=== PATIENT | female | born 1995 | race Caucasian/White ===

== ENCOUNTER 2019-05-20 15:44 | Outpatient (RCR) | payer OTHER, SELFPAY | END 2019-08-16 23:59 | disposition home or self-care (01) | LOC: ANHLAB 15:44 | PROVIDERS: Visit Provider Advanced Practice Midwife | DX: Z36.89 Encounter for other specified antenatal screening (principal) | CPT/HCPCS: 36415; 84702 ==

== ENCOUNTER 2019-08-03 14:35 | Emergency (ER) | payer OTHER, SELFPAY ==
[2019-08-03 15:00] VITALS: BP 119/72; PULSE 98; RESP 18; TEMP 36.7; O2SAT 99
--- NOTE | 2019-08-03 15:29 | ED.URI ---
HPI - URI/Sore Throat General Chief Complaint: Upper Respiratory Infection Stated Complaint: head ache cough and ache Time Seen by Provider: 08/03/19 15:29 Source: patient and RN notes reviewed History of Present Illness HPI Narrative: Patient is a 23-year-old female presents the urgent care with complaints of headache, cough, body aches, fever. Patient states that it started yesterday and she used 1 dose of Benadryl without any relief. Patient states that she did call her DATA PROCESSING CONTROL CLERK who prescribed her more Zofran for her nausea and told her to follow-up with them if she is positive for influenza B at our facility. Patient states that she will get the Tamiflu prescription from them if her DATA PROCESSING CONTROL CLERK deems necessary. Patient is currently 16 weeks . No other acute complaints. No acute distress noted. Patient had a plan of care. Related Data Home Medications Medication Instructions Recorded Confirmed ondansetron HCl [Zofran] 4 mg PO Q6H PRN 08/03/19 08/03/19 Allergies Allergy/AdvReac Type Severity Reaction Status Date / Time hydrocodone AdvReac Mild NAUSEA Verified 08/03/19 15:14 Review of Systems Review of Systems: Narrative: CONSTITUTIONAL: Reports a fever, chills EYES: Denies visual changes, redness, or discharge. ENT: Denies rhinorrhea, congestion, sore throat, or otalgia. CARDIOVASCULAR: Denies chest pain, palpitations, or edema. RESPIRATORY: Reports of nonproductive cough without dyspnea GASTROINTESTINAL: Denies abdominal pain, nausea, vomiting, or diarrhea. GENITOURINARY: Denies dysuria or hematuria. SKIN: Denies rash or itching. MUSCULOSKELETAL: Denies back pain, joint pain; reports of body aches NEUROLOGIC: Reports of headache All other systems reviewed are negative, except as documented in HPI. PMFSH Comments At the time of my signature, I reviewed and agree with the nursing past medical, surgical, social, and family history. There is no relevant family history pertinent to the patient complaint. Exam Narrative: Exam Narrative: GENERAL: This is a well-nourished, well-developed patient, appears slightly fatigued HEAD: normocephalic, atraumatic. EYES: PERRL. Sclera clear/white. Vision is grossly intact. EARS: External ears normal, auditory canals clear and without drainage, TMs normal without perforation. Hearing grossly intact. NOSE: External nose normal with no obvious nasal discharge, nares without redness, clear rhinorrhea. THROAT: Mucous membranes moist, posterior pharynx clear. Mild postnasal drainage NECK: Neck supple CARDIOVASCULAR: Regular rate and rhythm without murmurs, gallops, or rubs. RESPIRATORY: Clear to auscultation. Breath sounds equal bilaterally. No wheezes, rales, or rhonchi. SKIN: warm, intact with no suspicious lesions or rash, good texture and turgor. NEURO: awake, alert, and oriented to person, place and time. There were no obvious focal neurologic abnormalities. EXTREMITIES: No clubbing, cyanosis, or edema. Course Vital Signs Vital signs: Vital Signs Temperature 98.1 F 08/03/19 15:00 Pulse Rate 98 08/03/19 15:00 Respiratory Rate 18 08/03/19 15:00 Blood Pressure 119/72 08/03/19 15:00 Pulse Oximetry 99 08/03/19 15:00 Temperature 98.1 F 08/03/19 15:00 Pulse Rate 98 08/03/19 15:00 Respiratory Rate 18 08/03/19 15:00 Blood Pressure 119/72 08/03/19 15:00 Pulse Oximetry 99 08/03/19 15:00 Reviewed MDM - URI/Sore Throat MDM Narrative Medical decision making narrative: Reviewed lab results with the patient. She is aware that she is positive for influenza B. Advised patient to follow-up with her DATA PROCESSING CONTROL CLERK as directed prior to appointment today at the urgent care. Patient states that her REGISTRY NURSE will treat her with Tamiflu if she deems necessary. Advised patient that she may use [id number] Zyrtec and Flonase which are safe in but she can also discuss those medications with her DATA PROCESSING CONTROL CLERK. Make sure to increase water intake. Use humidifier at ni
== END 2019-08-03 15:45 | disposition home or self-care (01) ==
PROVIDERS: Emergency Provider Nurse Practitioner Family
DX: J10.1 Influenza due to other identified influenza virus with other respiratory manifestations (principal); J45.990 Exercise induced bronchospasm
CPT/HCPCS: 87081; 87804; 87880; 99213; G0463

== ENCOUNTER 2019-08-07 18:26 | Emergency (ER) | payer OTHER, SELFPAY ==
[2019-08-07 18:26] VITALS: BP 113/85; PULSE 73; RESP 20; TEMP 36.8; O2SAT 100
--- NOTE | 2019-08-07 18:28 | ED.SYNCOPE ---
HPI - Syncope General Chief Complaint: Syncope Stated Complaint: syncope Time Seen by Provider: 08/07/19 18:27 Source: patient Mode of arrival: EMS Limitations: no limitations History of Present Illness HPI narrative: The pt is a 24 y/o female who presents to the ED, via EMS, with c/o a syncopal episode that occurred just prior to arrival. The pt states that she was at the gas station and began to feel lightheaded so she sat on the counter. The next thing she remembers is waking up on the floor with a leading firefighter looking over her. The pt states that she is 16 weeks and has the flu. She reports a cough and sinus congestion, but denies fever, SOB, ABD pain, vaginal bleeding, CP, BLE swelling, or vaginal discharge. The pt states that she has been able to eat and drink normally but did not eat much today. complaint: other (syncopal episode) Onset (ago): minute(s) (just prior to arrival) Witnessed: Yes - by Bystander Current symptoms: other (cough, sinus congestion) Related Data Home Medications Medication Instructions Recorded Confirmed ondansetron HCl [Zofran] 4 mg PO Q6H PRN 08/03/19 08/03/19 Allergies Allergy/AdvReac Type Severity Reaction Status Date / Time hydrocodone AdvReac Mild NAUSEA Verified 08/07/19 18:30 Review of Systems Review of Systems: All systems reviewed & are unremarkable except as noted in HPI and below Constitutional: Constitutional: Denies fever(s) ENT: Reports other (sinus congestion) Cardiovascular: Cardiovascular: Denies chest pain and Denies leg edema (BLE) Respiratory: Respiratory: Reports cough and Denies dyspnea Gastrointestinal: Gastrointestinal: Denies abdominal pain Genitourinary: Genitourinary: Denies abnormal vaginal bleeding and Denies vaginal discharge Neurologic: Reports syncope PMFSH Past Medical History Medical History (Updated 08/07/19 @ 19:41 by Francois Gordon MD) Asthma Depression Migraine Surgical History Surgical History (Updated 08/07/19 @ 18:37 by Shana Warren) H/O inguinal hernia repair [place] teeth extracted Social History Social History (Updated 08/07/19 @ 18:37 by Shana Warren) Smoking status: Never smoker Exam Const: General: healthy appearing and no acute distress Nutritional Appearance: well nourished HENMT: Mouth: Yes lip normal and Yes moist mucous membranes Eyes: Conjunctivae: conjunctivae normal Pupils: Equal, round and reactive pupils present Resp: Effort & Inspection: normal respiratory effort Auscultation: clear to auscultation bilaterally Cardio: Rate: regular rate Rhythm: regular rhythm Heart sounds: no murmurs GI: GI Palp: No abdominal tenderness and Yes Soft to palpation Auscultation: normal bowel sounds Back/Spine/Pelvis: Back: other (full ROM) Skin: General skin exam: normal color, dry skin and other (warm) Neuro: General: patient oriented x3 Speech: normal speech Extrem: General: full ROM Psych: Mental Status: mental status grossly normal Affect: normal affect Course Vital Signs Vital signs: Vital Signs Temperature 36.8 C 08/07/19 18:26 Pulse Rate 73 08/07/19 18:26 Respiratory Rate 20 08/07/19 18:26 Blood Pressure 113/85 08/07/19 18:26 Pulse Oximetry 100 08/07/19 18:26 Temperature 36.8 C 08/07/19 18:26 Pulse Rate 89 08/07/19 19:18 Respiratory Rate 20 08/07/19 18:26 Blood Pressure 107/81 08/07/19 19:18 Pulse Oximetry 100 08/07/19 18:26 MDM - Syncope Lab Data Result diagrams: 08/07/19 18:45 08/07/19 18:45 Labs: Lab Results 08/07/19 08/07/19 Range/Units 18:45 18:45 WBC 4.7 (4.5-10.0) K/mm3 RBC 3.95 L (4.2-5.4) M/mm3 Hgb 12.5 (12.0-15.0) g/dL Hct 36.1 L (37.0-47.0) % MCV 91.4 (80-100) fl MCH 31.6 (26-34) pg MCHC 34.6 (32-36) g/dl RDW 12.8 (11.5-14.5) % Plt Count 157 (150-375) k/mm3 MPV 10.5 H (7.4-10.4) fl Immature Gran % (Auto) 0.2 (0-0.
--- NOTE | 2019-08-07 18:30 | ECG_ITS ---
Measurements Intervals [place] Rate: 73 P: 11 NE: 136 QRS: 74 QRSD: 98 T: 25 QT: 403 QTc: 445 Interpretive Statements SINUS RHYTHM BORDERLINE ST-T WAVE ABNORMALITY- ANT/INF LEADS BASELINE ARTIFACT- I, II, III, AVR, AVL, AVF, V3-V5 BORDERLINE ECG Electronically Signed On 08-11-2019 15:18:57 SOLUTION ENGINEER by Jann Granados D.O.
[2019-08-07] MEDS: SODIUM CHLORIDE 0.9% IV 1,000 ML 999 ML IV CONT (18:45)
[2019-08-07 18:52] LABS: Basophils Percent Auto 0.4 % (0.2-1.2); Eosinophils Absolute Auto 0.1 K/mm3 (0-0.3); Eosinophils Percent Auto 1.5 % (0-4.4); Hematocrit 36.1 % (37.0-47.0); Hemoglobin 12.5 g/dL (12.0-15.0); Immature Granulocyte Absolute 0.01 K/mm3 (0.00-0.031); Immature Granulocyte Percent A 0.2 % (0-0.5); Lymphocytes Absolute Auto 1.75 K/mm3 (0.9-3.2); Lymphocytes Percent Auto 37.1 % (18.3-44.2); Mean Corpuscular HGB Conc 34.6 g/dl (32-36); Mean Corpuscular Hemoglobin 31.6 pg (26-34); Mean Corpuscular Volume 91.4 fl (80-100); Mean Platelet Volume 10.5 fl (7.4-10.4); Monocytes Absolute Auto 0.4 K/mm3 (0.1-0.6); Monocytes Percent Auto 8.9 % (2.6-8.5); Neutrophils Absolute Auto 2.5 K/mm3 (1.3-6.7); Neutrophils Percent Auto 51.9 % (45.5-73.1); Platelet Count Result 157 k/mm3 (150-375); Red Blood Count 3.95 M/mm3 (4.2-5.4); Red Cell Distribution Width 12.8 % (11.5-14.5); White Blood Count 4.7 K/mm3 (4.5-10.0)
[2019-08-07 19:03] LABS: Blood Urea Nitrogen 10 mg/dL (7-17); Calcium 8.5 mg/dL (8.4-10.2); Carbon Dioxide 25 mmol/L (22-30); Chloride 98 mmol/L (98-107); Estimated CRCL calculation 116 ml/min; Estimated Glomerular Filt Rate > 60; Glucose 83 mg/dL (65-105); Potassium 3.9 mmol/L (3.4-5.0); Sodium 134 mmol/L (137-145)
[2019-08-07 19:18] VITALS: BP 103/76; BP 107/72; BP 107/81; PULSE 79; PULSE 89
[2019-08-07 19:50] VITALS: BP 110/77; PULSE 80; RESP 20; TEMP 37.1; O2SAT 99
--- NOTE | 2019-09-26 10:54 | PC.NURSE ---
LATE ENTRY This note is being entered to document information to the patient's record. The following information was omitted on [08/07/2019], by YOUSUF Jean Baptiste. Ptrecieved 1 L NS and infusion completed 1 hr after initiation
== END 2019-08-07 19:51 | disposition home or self-care (01) ==
PROVIDERS: Emergency Provider Emergency Medicine
DX: R55 Syncope and collapse (principal); J45.909 Unspecified asthma, uncomplicated
CPT/HCPCS: 36415; 80048; 85025; 93005; 96360; 99283; J7030

== ENCOUNTER 2019-10-04 08:51 | Observation (INO) | payer OTHER, SELFPAY ==
[2019-10-04] VITALS (66 sets, daily range): BP systolic 116–144; BP diastolic 63–100; PULSE 57–81; TEMP 36.3–36.9; O2SAT 97–100; BMI 24.6
[2019-10-04] MEDS: DEXTROSE 5%/LACTATED RINGERS 1,000 ML 125 ML IV CONT (09:28)
[2019-10-04] MEDS: METOCLOPRAMIDE HCL INJ 10 MG/2 ML VIAL IV PUSH (09:28)
[2019-10-04 09:44] LABS: Glucose Point of Care 139 (65-105)
[2019-10-04 09:59] LABS: Hematocrit 34.5 % (37.0-47.0); Hemoglobin 11.9 g/dL (12.0-15.0); Mean Corpuscular HGB Conc 34.5 g/dl (32-36); Mean Corpuscular Hemoglobin 31.9 pg (26-34); Mean Corpuscular Volume 92.5 fl (80-100); Mean Platelet Volume 10.4 fl (7.4-10.4); Platelet Count Result 198 k/mm3 (150-375); Red Blood Count 3.73 M/mm3 (4.2-5.4); Red Cell Distribution Width 13.2 % (11.5-14.5); White Blood Count 11.2 K/mm3 (4.5-10.0)
[2019-10-04 10:12] LABS: Potassium 3.3 mmol/L (3.4-5.0)
--- NOTE | 2019-10-04 10:19 | PC.NURSE ---
0928- Reglan 10 mg started to be given IV push, 2.5 mg or 1/2 ml administered when patient eyes started rolling back in her head and tremoring. Reglan discontinued at this time. Staff assistance called to room. Patient breathing with an O2 sat of 100%, responding to commands. 0930- SVE performed by Bailey Mckeon RN, cervix closed. Patient still breathing, O2 applied at 10L/mask. Vitals all normal. Dr. Theodore called to come in to see patint. 1035- Patient still tremoring and eyes fluttering intermittently, patient responds to sternal rub. Dr. Theodore at bedside. Orders received for 25 mg IV benadryl. 0938- Patient given 25 mg IV benadryl. 0940- patient alert and talking, decreasing eye fluttering and tremors. Dr. Theodore discussing plan of care with patient.
[2019-10-04 10:21] LABS: Albumin Level 3.6 g/dL (3.5-5.1)
[2019-10-04 10:22] LABS: Alanine Aminotransferase 16 U/L (4-35); Alkaline Phosphatase 82 U/L (38-126); Aspartate Amino Transferase 22 U/L (14-36); Bilirubin,Total 0.5 mg/dL (0.2-1.3); Blood Urea Nitrogen 8 mg/dL (7-17); Calcium 8.2 mg/dL (8.4-10.2); Carbon Dioxide 22 mmol/L (22-30); Chloride 104 mmol/L (98-107); Estimated Glomerular Filt Rate > 60; Glucose 178 mg/dL (65-105); Sodium 136 mmol/L (137-145)
--- NOTE | 2019-10-04 10:26 | OBADM ---
This patient, Bridget Hendrix, admitted to the OB room OB Post 116 for observation. Patient/family oriented to hospital policies and general routines including ID bracelet, bed and alarms, visiting hours, pain management, procedures, bathroom and other care routines, personal items, smoking policy, room service/diet, and visiting hours. Patient/Family are encouraged to report perceived risks to care and to ask questions if they do not understand what they are told or what they should do.
[2019-10-04 10:29] LABS: Bilirubin Urine 1+ (Negative); Blood Urine Negative (Negative); Color Urine Yellow (Yellow); Glucose Urine UA Trace mg/dL (Negative); Ketones Urine 4+ mg/dL (Negative); Leukocyte Esterase Ur Negative LEU/UL (NEGATIVE); Nitrate Urine Negative (Negative); Protein Urine 1+ mg/dL (Negative); Specific Grav Ur >= 1.030 (1.001-1.035)
[2019-10-04 10:31] LABS: Add Urine Microscopic? YES
[2019-10-04 10:34] LABS: Bacteria Urine Trace /hpf; Squamous Epithelial Cell Urine Few /hpf (Few)
[2019-10-04 10:35] LABS: Appearance Urine Clear (Clear)
[2019-10-04 10:41] LABS: Barbiturate Screen Urine Negative (Negative); Benzodiazepines Screen Urine Negative (Negative)
[2019-10-04 10:49] LABS: Amphetamine Screen Urine Negative (Negative); Cannabinoid Screen Urine Positive (Negative); Cocaine Screen Urine Negative (Negative); Methadone Screen Urine Negative (Negative); Opiate Screen Urine Negative (Negative); Phencyclidine Screen Urine Negative (Negative)
--- NOTE | 2019-10-04 12:05 | PC.NURSE ---
0984- Spoke with Dr. Theodore. Orders received for patient to be NPO and pepcid 20 mg iv. Orders to alternate D5LR with D5NS and Potassium.
[2019-10-04] MEDS: FAMOTIDINE 20 MG/2 ML VIAL IV PUSH (12:15)
[2019-10-04] MEDS: KCL 20 MEQ/D5/0.45% SOD CHL 1,000 ML 125 ML IV CONT (13:28)
[2019-10-04] MEDS: PROMETHAZINE HCL 25 MG SUPP.RECT RECTAL ×2 (13:50→17:32)
--- NOTE | 2019-10-04 16:41 | PC.NURSE ---
1640- Spoke with Dr. Theodore, patient feeling better after Phenergan suppository. Patient may be discharged to home with prescriptions for Phenergan suppositories-25 mg rectally q 4 hr PRN, and Zofran ODT tablets -4mg q6 hours PRN.
[2019-10-04] MEDS: ONDANSETRON HCL ODT 4 MG TABLET PO (16:50)
--- NOTE | 2019-10-19 22:13 | PM.IMHP ---
H&P: HPI History of Present Illness Chief complaint: Abdominal pain Narrative: Bridget Hendrix is a 24 year old female 2 para 1001 at 24 weeks gestation who presented for abdominal pain. She denies loss of fluid, vaginal bleeding, contractions. She denies any headache, blurry vision, epigastric pain. She reports good movement. Her pain is lower abdominal sharp pain, it is intermittent with movement. Review of Systems Constitutional: Constitutional: Reports no additional constitutional complaints, Denies fatigue, Denies headache(s), Denies lethargy and Denies weakness Eyes: Eyes: Reports no additional eye complaints, Denies blurry vision and Denies photophobia ENT: Reports as per HPI, Denies headache(s) and Denies neck pain Cardiovascular: Cardiovascular: Denies chest pain, Denies diaphoresis, Denies leg edema, Denies palpitations and Denies dyspnea Respiratory: Respiratory: Denies hemoptysis, Denies dyspnea and Denies wheezing Gastrointestinal: Gastrointestinal: Denies abdominal pain, Denies melena, Denies bloating, Denies hematochezia, Denies nausea and Denies vomiting Genitourinary: Genitourinary: Reports no additional female genitourinary complaints Musculoskeletal: Musculoskeletal: Denies joint swelling, Denies neck pain, Denies numbness and Denies stiffness Neurologic: Denies Abnormal speech present, Denies confusion, Denies headache(s), Denies numbness and Denies weakness Psychiatric: Psychiatric: Denies anxiety, Denies confusion, Denies depression, Denies homicidal ideation and Denies suicidal ideation Endocrine: Endocrine: Denies fatigue and Denies palpitations Allergic/Immunologic: Allergic/Immunologic: Denies wheezing PMF Past Medical History Medical History (Updated 10/19/19 @ 22:16 by Watson Theodore MD) Asthma Depression Migraine Surgical History Surgical History (Updated 08/07/19 @ 18:37 by Shana Warren) H/O inguinal hernia repair [place] teeth extracted Social History Social History (Updated 08/07/19 @ 18:37 by Shana Warren) Smoking status: Never smoker Meds Home Medications and Allergies Home Medications Medication Instructions Recorded Confirmed Type ondansetron HCl [Zofran] 4 mg PO Q6H PRN #30 tablet 10/14/19 Rx promethazine 25 mg [place] Q4H PRN #30 ea 10/14/19 Rx Allergies Allergy/AdvReac Type Severity Reaction Status Date / Time metoclopramide [From Reglan] Allergy Muscle Verified 10/04/19 11:08 Spasms hydrocodone AdvReac Mild NAUSEA Verified 08/07/19 18:30 Exam Const: General: healthy appearing, comfortable and no acute distress; No confusion Orientation/consciousness: No confusion Eyes: Direct Ophthalmoscopy: No photophobia Resp: Auscultation: clear to auscultation bilaterally, no rales, no rhonchi and no wheezes Cardio: Rate: regular rate Heart sounds: no click, no murmurs and no rubs GI: Inspection: non-distended GI Palp: No abdominal tenderness Auscultation: normal bowel sounds Neuro: General: No confusion Speech: No Abnormal speech present Extrem: General: normal to inspection, no pedal edema and no calf tenderness Assessment and Plan Assessment and plan (1) Abdominal pain: Code(s): R10.9 - Unspecified abdominal pain Status: Acute (2) Second trimester : Code(s): Z34.92 - Encounter for supervision of normal , unspecified, second trimester Status: Acute Additional Plan this patient is a 24-year-old multipara at 24 week gestation with abdominal pain. Her appears normal. We will observe her for period time and consider discharge.
--- NOTE | 2019-10-29 18:11 | PM.IMHP ---
H&P: HPI History of Present Illness Chief complaint: Abdominal pain Narrative: Bridget Hendrix is a 24 year old female multiparous female at approximately 23 weeks gestation who presents for abdominal pain. She has epigastric pain that is constant. It is a burning sensation. She denies any shortness of breath. She denies any chest pain. She denies any nausea , vomiting. She denies any fevers and chills. denies any contractions, she denies any vaginal bleeding. She reports good movement. She denies any headache or blurry vision. Review of Systems Constitutional: Constitutional: Reports no additional constitutional complaints, Denies fatigue, Denies headache(s), Denies lethargy and Denies weakness Eyes: Eyes: Reports no additional eye complaints, Denies blurry vision and Denies photophobia ENT: Reports as per HPI, Denies headache(s) and Denies neck pain Cardiovascular: Cardiovascular: Denies chest pain, Denies diaphoresis, Denies leg edema, Denies palpitations and Denies dyspnea Respiratory: Respiratory: Denies hemoptysis, Denies dyspnea and Denies wheezing Gastrointestinal: Gastrointestinal: Denies abdominal pain, Denies melena, Denies bloating, Denies hematochezia, Denies nausea and Denies vomiting Genitourinary: Genitourinary: Reports no additional female genitourinary complaints Musculoskeletal: Musculoskeletal: Denies joint swelling, Denies neck pain, Denies numbness and Denies stiffness Neurologic: Denies Abnormal speech present, Denies confusion, Denies headache(s), Denies numbness and Denies weakness Psychiatric: Psychiatric: Denies anxiety, Denies confusion, Denies depression, Denies homicidal ideation and Denies suicidal ideation Endocrine: Endocrine: Denies fatigue and Denies palpitations Allergic/Immunologic: Allergic/Immunologic: Denies wheezing PMF Past Medical History Medical History (Updated 10/19/19 @ 22:16 by Watson Theodore MD) Asthma Depression Migraine Surgical History Surgical History (Updated 08/07/19 @ 18:37 by Shana Warren) H/O inguinal hernia repair [place] teeth extracted Social History Social History (Updated 08/07/19 @ 18:37 by Shana Warren) Smoking status: Never smoker Meds Home Medications and Allergies Home Medications Medication Instructions Recorded Confirmed Type ondansetron HCl [Zofran] 4 mg PO Q6H PRN #30 tablet 10/14/19 Rx promethazine 25 mg [place] Q4H PRN #30 ea 10/14/19 Rx Allergies Allergy/AdvReac Type Severity Reaction Status Date / Time metoclopramide [From Reglan] Allergy Muscle Verified 10/04/19 11:08 Spasms hydrocodone AdvReac Mild NAUSEA Verified 08/07/19 18:30 Exam Const: General: healthy appearing, comfortable and no acute distress; No confusion Orientation/consciousness: No confusion Eyes: Direct Ophthalmoscopy: No photophobia Resp: Auscultation: clear to auscultation bilaterally, no rales, no rhonchi and no wheezes Cardio: Rate: regular rate Heart sounds: no click, no murmurs and no rubs GI: Inspection: non-distended GI Palp: No abdominal tenderness Auscultation: normal bowel sounds Neuro: General: No confusion Speech: No Abnormal speech present Extrem: General: normal to inspection, no pedal edema and no calf tenderness Assessment and Plan Assessment and plan (1) Second trimester : Code(s): Z34.92 - Encounter for supervision of normal , unspecified, second trimester Status: Acute (2) Abdominal pain: Code(s): R10.9 - Unspecified abdominal pain Status: Acute Assessment and Plan: This patient is a 24-year-old multiparous female with a epigastric pain. She will receive supportive care. There is reassuring status. There is no evidence of labor. No evidence of cardiac phenomenon. We will observe and consider discharge later if her symptoms resolve.
--- NOTE | 2019-11-11 07:44 | PM.OBTRLD ---
OB - Triage/Final Diagnosis Visit Information Date of evaluation: 10/14/19 Evaluation Laboratory results: Laboratory Tests 10/04/19 10/04/19 10/04/19 09:36 09:50 09:50 WBC 11.2 H RBC 3.73 L Hgb 11.9 L Hct 34.5 L MCV 92.5 MCH 31.9 MCHC 34.5 RDW 13.2 Plt Count 198 MPV 10.4 Sodium Potassium Chloride Carbon Dioxide BUN Creatinine Estim Creat Clear Calc Estimated GFR Glucose POC Capillary Glucose 139 H Calcium Total Bilirubin AST ALT Alkaline Phosphatase Total Protein Albumin Urine Color Yellow Urine Appearance Clear Urine pH 7.0 Ur Specific [place] >= 1.030 Urine Protein 1+ H Urine Glucose (UA) Trace H Urine Ketones 4+ H Ur Blood (Man) Negative Urine Nitrate Negative Urine Bilirubin 1+ H Urine Urobilinogen 1.0 Ur Leukocyte Esterase Negative Urine WBC 4-6 H Ur Squamous Epith Cells Few Urine Bacteria Trace Urine Opiates Screen Urine Methadone Screen Ur Barbiturates Screen Ur Phencyclidine Scrn Ur Amphetamine Screen U Benzodiazepines Scrn Urine Cocaine Screen U Cannabinoids Screen 10/04/19 10/04/19 09:50 09:50 WBC RBC Hgb Hct MCV MCH MCHC RDW Plt Count MPV Sodium 136 L Potassium 3.3 L Chloride 104 Carbon Dioxide 22 BUN 8 Creatinine 0.70 Estim Creat Clear Calc Not Reportable Estimated GFR > 60 Glucose 178 H POC Capillary Glucose Calcium 8.2 L Total Bilirubin 0.5 AST 22 ALT 16 Alkaline Phosphatase 82 Total Protein 7.0 Albumin 3.6 Urine Color Urine Appearance Urine pH Ur Specific [place] Urine Protein Urine Glucose (UA) Urine Ketones Ur Blood (Man) Urine Nitrate Urine Bilirubin Urine Urobilinogen Ur Leukocyte Esterase Urine WBC Ur Squamous Epith Cells Urine Bacteria Urine Opiates Screen Negative Urine Methadone Screen Negative Ur Barbiturates Screen Negative Ur Phencyclidine Scrn Negative Ur Amphetamine Screen Negative U Benzodiazepines Scrn Negative Urine Cocaine Screen Negative U Cannabinoids Screen Positive A Final Diagnosis (1) Nausea and vomiting: Code(s): R11.2 - Nausea with vomiting, unspecified Status: Acute
== END 2019-10-04 18:40 | disposition home or self-care (01) ==
PROVIDERS: Admitting Provider Obstetrics & Gynecology; Visit Provider Obstetrics & Gynecology
DX: Z34.92 Encounter for supervision of normal pregnancy, unspecified, second trimester (principal); R11.2 Nausea with vomiting, unspecified; R10.13 Epigastric pain
CPT/HCPCS: 36415; 80053; 80307; 81001; 85027; 87077; 87086; 87088; 96361; 96374; 96375; A9270; G0378; G0379; J1200; J2765; J3480; J7121

== ENCOUNTER 2019-10-14 09:16 | Observation (INO) | payer OTHER, SELFPAY ==
--- NOTE | 2019-10-14 09:16 | OBADM ---
This patient, Bridget Hendrix, admitted to the OB room OB Post 115 for observation. Patient/family oriented to hospital policies and general routines including ID bracelet, bed and alarms, visiting hours, pain management, procedures, bathroom and other care routines, personal items, smoking policy, room service/diet, and visiting hours. Patient/Family are encouraged to report perceived risks to care and to ask questions if they do not understand what they are told or what they should do.
[2019-10-14] MEDS: LACTATED RINGERS 1,000 ML 999 ML IV CONT (11:09)
[2019-10-14] MEDS: ONDANSETRON INJ 4 MG/2 ML VIAL IV PUSH ×3 (11:10→18:46)
[2019-10-14] MEDS: FAMOTIDINE 20 MG/2 ML VIAL IV PUSH (11:10)
[2019-10-14 11:24] LABS: Basophils Percent Auto 0.1 % (0.2-1.2); Eosinophils Absolute Auto 0.1 K/mm3 (0-0.3); Eosinophils Percent Auto 0.4 % (0-4.4); Hematocrit 36.3 % (37.0-47.0); Hemoglobin 12.9 g/dL (12.0-15.0); Immature Granulocyte Absolute 0.05 K/mm3 (0.00-0.031); Immature Granulocyte Percent A 0.4 % (0-0.5); Lymphocytes Absolute Auto 0.82 K/mm3 (0.9-3.2); Lymphocytes Percent Auto 6.5 % (18.3-44.2); Mean Corpuscular HGB Conc 35.5 g/dl (32-36); Mean Corpuscular Hemoglobin 32.2 pg (26-34); Mean Corpuscular Volume 90.5 fl (80-100); Mean Platelet Volume 10.9 fl (7.4-10.4); Monocytes Absolute Auto 0.3 K/mm3 (0.1-0.6); Monocytes Percent Auto 2.7 % (2.6-8.5); Neutrophils Absolute Auto 11.3 K/mm3 (1.3-6.7); Neutrophils Percent Auto 89.9 % (45.5-73.1); Platelet Count Result 177 k/mm3 (150-375); Red Blood Count 4.01 M/mm3 (4.2-5.4); Red Cell Distribution Width 12.9 % (11.5-14.5); White Blood Count 12.6 K/mm3 (4.5-10.0)
[2019-10-14 11:27] LABS: Add Urine Microscopic? YES; Appearance Urine Cloudy (Clear); Bacteria Urine Trace /hpf; Bilirubin Urine Negative (Negative); Blood Urine Negative (Negative); Color Urine Yellow (Yellow); Glucose Urine UA Negative (Negative); Ketones Urine Trace mg/dL (Negative); Leukocyte Esterase Ur Negative LEU/UL (NEGATIVE); Mucus Urine Rare /lpf; Nitrate Urine Negative (Negative); Protein Urine 1+ mg/dL (Negative); RBC Urine 0-2 /hpf (0-2); Specific Grav Ur 1.016 (1.001-1.035); Squamous Epithelial Cell Urine Moderate /hpf (Few); Urobilinogen Urine Negative mg/dL (<2.0)
[2019-10-14 11:37] LABS: Alanine Aminotransferase 14 U/L (4-35); Albumin Level 3.7 g/dL (3.5-5.1); Alkaline Phosphatase 90 U/L (38-126); Aspartate Amino Transferase 18 U/L (14-36); Bilirubin,Total 0.2 mg/dL (0.2-1.3); Blood Urea Nitrogen 4 mg/dL (7-17); Calcium 8.6 mg/dL (8.4-10.2); Carbon Dioxide 21 mmol/L (22-30); Chloride 104 mmol/L (98-107); Estimated Glomerular Filt Rate > 60; Glucose 101 mg/dL (65-105); Potassium 3.7 mmol/L (3.4-5.0); Sodium 135 mmol/L (137-145)
[2019-10-14] MEDS: DEXTROSE 5%/LACTATED RINGERS 1,000 ML 100 ML IV CONT (12:46)
[2019-10-14] MEDS: PROMETHAZINE HCL 12.5 MG SUPP.RECT RECTAL (12:52)
[2019-10-14 14:14] VITALS: PULSE 66; O2SAT 100
[2019-10-14] MEDS: PROMETHAZINE HCL 25 MG SUPP.RECT RECTAL (17:07)
[2019-10-14 17:53] VITALS: TEMP 37.2
[2019-10-14 17:56] VITALS: BP 108/71; PULSE 78
--- NOTE | 2019-10-21 07:46 | P.PNOB_ITS ---
OB - Triage/Final Diagnosis Visit Information Date of evaluation: 10/14/19 Reason for evaluation: other (N/V abd pain) Evaluation Laboratory results: Laboratory Tests 10/14/19 10/14/19 10/14/19 11:17 11:17 11:17 WBC 12.6 H RBC 4.01 L Hgb 12.9 Hct 36.3 L MCV 90.5 MCH 32.2 MCHC 35.5 RDW 12.9 Plt Count 177 MPV 10.9 H Immature Gran % (Auto) 0.4 Neut % (Auto) 89.9 H Lymph % (Auto) 6.[address] [place] % (Auto) 2.7 Eos % (Auto) 0.4 Baso % (Auto) 0.1 L Lymph # (Auto) 0.[address] [place] # (Auto) 0.3 Eos # (Auto) 0.1 Baso # (Auto) 0.0 Abs Immat Gran (auto) 0.05 H Absolute Neuts (auto) 11.3 H Absolute Nucleated RBC 0.0 Nucleated RBC % 0.0 Sodium 135 L Potassium 3.7 Chloride 104 Carbon Dioxide 21 L BUN 4 L Creatinine 0.50 L Estim Creat Clear Calc Not Reportable Estimated GFR > 60 Glucose 101 Calcium 8.6 Total Bilirubin 0.2 AST 18 ALT 14 Alkaline Phosphatase 90 Total Protein 7.0 Albumin 3.7 Urine Color Yellow Urine Appearance Cloudy H Urine pH 9.0 Ur Specific [place] 1.016 Urine Protein 1+ H Urine Glucose (UA) Negative Urine Ketones Trace Ur Blood (Man) Negative Urine Nitrate Negative Urine Bilirubin Negative Urine Urobilinogen Negative Ur Leukocyte Esterase Negative Urine RBC 0-2 Urine WBC 4-6 H Ur Squamous Epith Cells Moderate H Urine Bacteria Trace Urine Mucus Rare
== END 2019-10-14 19:15 | disposition home or self-care (01) ==
PROVIDERS: Advanced Practice Midwife; Admitting Provider Obstetrics & Gynecology; Visit Provider Obstetrics & Gynecology
DX: O21.2 Late vomiting of pregnancy (principal); O26.892 Other specified pregnancy related conditions, second trimester; R10.9 Unspecified abdominal pain; Z3A.25 25 weeks gestation of pregnancy
CPT/HCPCS: 36415; 80053; 81001; 85025; 87086; 87088; 96361; 96374; 96375; 96376; A9270; G0378; G0379; J1200; J2405; J7120; J7121

== ENCOUNTER 2019-12-12 16:35 | Outpatient (RCR) | payer OTHER, SELFPAY ==
--- NOTE | ~2019-12-12 | US_ITS ---
EXAMINATION: US OB BPP wo non-stress DATE: 12/12/2019 17:39 INDICATION: Nonreactive nonstress test TECHNIQUE: Real-time pelvic ultrasound was performed. The interpreting radiologist was not present fo r the study. COMPARISON: None. FINDINGS: There is a single living fetus in vertex presentation. The placenta is posterior/fundal. heart rate is 155 beats per minute (bpm). The amniotic fluid index is subjectively normal. Biophysical profile performed by the technologist: breathing (30 sec sustained breathing in 30 minutes): 2 out of 2 movement (3 gross body movements in 30 minutes): 2 out of 2 tone (one episode of [id number] limb movement): 2 out of 2 Amniotic fluid pocket (2 cm): 2 out of 2 Total score: 8 out of 8 IMPRESSION: 1. Single living fetus in vertex presentation. 2. Biophysical profile 8 out of 8. Reviewed, dictated and finalized at location A.
[2019-12-12 19:16] VITALS: BP 106/63; PULSE 66
== END 2020-01-16 07:32 | disposition home or self-care (01) ==
LOC: ANHOBOP 16:35
PROVIDERS: PCP Advanced Practice Midwife; Visit Provider Obstetrics & Gynecology
DX: O26.893 Other specified pregnancy related conditions, third trimester (principal); Z3A.34 34 weeks gestation of pregnancy
CPT/HCPCS: 59025; 76819

== ENCOUNTER 2019-12-20 11:53 | Observation (INO) | payer OTHER, SELFPAY ==
[2019-12-20] VITALS (64 sets, daily range): BP systolic 120–138; BP diastolic 68–92; PULSE 62–101; O2SAT 91–100
[2019-12-20] MEDS: SODIUM CHLORIDE 0.9% IV 1,000 ML 999 ML IV CONT (13:27)
[2019-12-20] MEDS: ONDANSETRON INJ 4 MG/2 ML VIAL (13:28)
[2019-12-20] MEDS: FAMOTIDINE 20 MG/2 ML VIAL IV PUSH (13:28)
[2019-12-20 13:42] LABS: Basophils Percent Auto 0.2 % (0.2-1.2); Eosinophils Percent Auto 0.1 % (0-4.4); Hematocrit 35.3 % (37.0-47.0); Hemoglobin 12.3 g/dL (12.0-15.0); Immature Granulocyte Absolute 0.07 K/mm3 (0.00-0.031); Immature Granulocyte Percent A 0.5 % (0-0.5); Lymphocytes Absolute Auto 0.77 K/mm3 (0.9-3.2); Mean Corpuscular HGB Conc 34.8 g/dl (32-36); Mean Corpuscular Hemoglobin 31.8 pg (26-34); Mean Corpuscular Volume 91.2 fl (80-100); Monocytes Absolute Auto 0.3 K/mm3 (0.1-0.6); Monocytes Percent Auto 2.5 % (2.6-8.5); Neutrophils Absolute Auto 11.7 K/mm3 (1.3-6.7); Neutrophils Percent Auto 90.7 % (45.5-73.1); Platelet Count Result 188 k/mm3 (150-375); Red Blood Count 3.87 M/mm3 (4.2-5.4); Red Cell Distribution Width 13.3 % (11.5-14.5); White Blood Count 12.9 K/mm3 (4.5-10.0)
--- NOTE | 2019-12-20 13:47 | OBADM ---
This patient, Bridget Hendrix, admitted to the OB room OB Post 113 for observation. Patient/family oriented to hospital policies and general routines including ID bracelet, bed and alarms, visiting hours, pain management, procedures, bathroom and other care routines, personal items, smoking policy, room service/diet, and visiting hours. Patient/Family are encouraged to report perceived risks to care and to ask questions if they do not understand what they are told or what they should do.
[2019-12-20] MEDS: PROMETHAZINE HCL 12.5 MG SUPP.RECT RECTAL (14:44)
[2019-12-20] MEDS: TERBUTALINE SULFATE 1 MG/ML VIAL 0.25 MG SUB-Q (14:48)
[2019-12-20] MEDS: SODIUM CHLORIDE 0.9% IV 1,000 ML 200 ML IV CONT (14:52)
[2019-12-20 15:10] LABS: Add Urine Microscopic? YES; Appearance Urine Clear (Clear); Bacteria Urine Trace /hpf; Bilirubin Urine Negative (Negative); Blood Urine Negative (Negative); Color Urine Yellow (Yellow); Glucose Urine UA Negative (Negative); Ketones Urine 2+ mg/dL (Negative); Leukocyte Esterase Ur Trace LEU/UL (NEGATIVE); Mucus Urine Rare /lpf; Nitrate Urine Negative (Negative); Protein Urine 1+ mg/dL (Negative); RBC Urine 0-2 /hpf (0-2); Specific Grav Ur 1.019 (1.001-1.035); Squamous Epithelial Cell Urine Few /hpf (Few); Urobilinogen Urine Negative mg/dL (<2.0)
[2019-12-20] MEDS: PANTOPRAZOLE SODIUM IV 40 MG VIAL IV PUSH (16:51)
[2019-12-20] MEDS: ZOLPIDEM TARTRATE 5 MG TABLET 10 MG PO (17:47)
--- NOTE | 2019-12-20 18:50 | PC.NURSE ---
emisis does not appear to medication tablet present. small amount of light orange/clear emisis.
[2019-12-20] MEDS: PROMETHAZINE HCL 25 MG SUPP.RECT RECTAL (18:57)
--- NOTE | 2019-12-20 19:55 | PC.NURSE ---
Addendum entered by Marielena Cali RN 12/20/19 23:02: now*(not) Original Note: pt able to eat ice chips w/o nausea/vomiting and is not eating jell-o. plan of care discussed.
[2019-12-20 20:54] LABS: Glucose Point of Care 113 (65-105)
[2019-12-20 20:54] LABS: Glucose Point of Care 99 (65-105)
--- NOTE | 2019-12-20 21:00 | PC.NURSE ---
pt was able to eat jello and denies nausea/vomiting.
--- NOTE | 2020-01-09 08:34 | P.PNOB_ITS ---
OB - Triage/Final Diagnosis Evaluation Laboratory results: Laboratory Tests 12/20/19 12/20/19 12/20/19 12:22 13:32 14:59 WBC 12.9 H RBC 3.87 L Hgb 12.3 Hct 35.3 L MCV 91.2 MCH 31.8 MCHC 34.8 RDW 13.3 Plt Count 188 MPV 12.0 H Immature Gran % (Auto) 0.5 Neut % (Auto) 90.7 H Lymph % (Auto) 6.0 L [place] % (Auto) 2.5 L Eos % (Auto) 0.1 Baso % (Auto) 0.2 Lymph # (Auto) 0.77 L [place] # (Auto) 0.3 Eos # (Auto) 0.0 Baso # (Auto) 0.0 Abs Immat Gran (auto) 0.07 H Absolute Neuts (auto) 11.7 H Absolute Nucleated RBC 0.0 Nucleated RBC % 0.0 POC Capillary Glucose 113 H Urine Color Yellow Urine Appearance Clear Urine pH 8.0 Ur Specific [place] 1.019 Urine Protein 1+ H Urine Glucose (UA) Negative Urine Ketones 2+ H Ur Blood (Man) Negative Urine Nitrate Negative Urine Bilirubin Negative Urine Urobilinogen Negative Ur Leukocyte Esterase Trace H Urine RBC 0-2 Urine WBC 7-9 H Ur Squamous Epith Cells Few Urine Bacteria Trace Urine Mucus Rare 12/20/19 20:51 WBC RBC Hgb Hct MCV MCH MCHC RDW Plt Count MPV Immature Gran % (Auto) Neut % (Auto) Lymph % (Auto) [place] % (Auto) Eos % (Auto) Baso % (Auto) Lymph # (Auto) [place] # (Auto) Eos # (Auto) Baso # (Auto) Abs Immat Gran (auto) Absolute Neuts (auto) Absolute Nucleated RBC Nucleated RBC % POC Capillary Glucose 99 Urine Color Urine Appearance Urine pH Ur Specific [place] Urine Protein Urine Glucose (UA) Urine Ketones Ur Blood (Man) Urine Nitrate Urine Bilirubin Urine Urobilinogen Ur Leukocyte Esterase Urine RBC Urine WBC Ur Squamous Epith Cells Urine Bacteria Urine Mucus Final Diagnosis (1) Hyperemesis: Code(s): R11.10 - Vomiting, unspecified Status: Acute
== END 2019-12-20 21:13 | disposition home or self-care (01) ==
PROVIDERS: Advanced Practice Midwife; Admitting Provider Obstetrics & Gynecology; PCP Advanced Practice Midwife; Visit Provider Obstetrics & Gynecology
DX: O21.2 Late vomiting of pregnancy (principal); Z3A.35 35 weeks gestation of pregnancy
CPT/HCPCS: 36415; 81001; 85025; 96372; 96374; 96375; A9270; C9113; G0378; G0379; J1200; J2405; J3105; J7030

== ENCOUNTER 2019-12-22 07:19 | Observation (INO) | payer OTHER, SELFPAY ==
[2019-12-22] VITALS (44 sets, daily range): BP systolic 102–145; BP diastolic 49–104; PULSE 39–178; TEMP 36.6–36.9; O2SAT 95–100
--- NOTE | 2019-12-22 07:44 | PM.IMHP ---
H&P: HPI History of Present Illness Chief complaint: n/v Narrative: Bridget Hendrix is a 24 year old female At 36 weeks gestation who presents for nausea and vomiting. She is gestational diabetic. She reports anxiety nausea associated with insulin therapy. She was admitted for observation 2 days ago for severe nausea and vomiting. She was treated effectively. She left in stable condition. She denies any blood in her vomitus. She reports good movement. She denies any vaginal bleeding, loss of fluid. She does report the inconsistent painful contractions. She denies any loss of fluid. Review of Systems Constitutional: Constitutional: Reports no additional constitutional complaints, Denies fatigue, Denies headache(s), Denies lethargy and Denies weakness Eyes: Eyes: Reports no additional eye complaints, Denies blurry vision and Denies photophobia ENT: Reports as per HPI, Denies headache(s) and Denies neck pain Cardiovascular: Cardiovascular: Denies chest pain, Denies diaphoresis, Denies leg edema, Denies palpitations and Denies dyspnea Respiratory: Respiratory: Denies hemoptysis, Denies dyspnea and Denies wheezing Gastrointestinal: Gastrointestinal: Denies melena, Denies bloating and Denies hematochezia Genitourinary: Genitourinary: Reports no additional female genitourinary complaints Musculoskeletal: Musculoskeletal: Denies joint swelling, Denies neck pain, Denies numbness and Denies stiffness Neurologic: Denies Abnormal speech present, Denies confusion, Denies headache(s), Denies numbness and Denies weakness Psychiatric: Psychiatric: Denies anxiety, Denies confusion, Denies depression, Denies homicidal ideation and Denies suicidal ideation Endocrine: Endocrine: Denies fatigue and Denies palpitations Allergic/Immunologic: Allergic/Immunologic: Denies wheezing [facility] Past Medical History Medical History (Updated 12/22/19 @ 07:51 by Watson Theodore MD) Asthma Depression Migraine Surgical History Surgical History (Updated 08/07/19 @ 18:37 by Shana Warren) H/O inguinal hernia repair [place] teeth extracted Social History Social History (Updated 08/07/19 @ 18:37 by Shana Warren) Smoking status: Never smoker Meds Home Medications and Allergies Home Medications Medication Instructions Recorded Confirmed Type Humulin N NPH U-100 Insulin 8 unit SUBCUT 12/20/19 12/20/19 History diphenhydramine HCl [Benadryl] 25 mg PO Q6H PRN 12/20/19 12/20/19 History omeprazole 20 mg PO DAILY 12/20/19 12/20/19 History promethazine 25 mg VA Q6H PRN 12/20/19 12/20/19 History Allergies Allergy/AdvReac Type Severity Reaction Status Date / Time metoclopramide [From Reglan] Allergy Muscle Verified 10/04/19 11:08 Spasms hydrocodone AdvReac Mild NAUSEA Verified 08/07/19 18:30 Vital Signs Vital Signs - 24 hr 12/22/19 07:33 Pulse Rate 55 L Blood Pressure 130/88 Exam Const: General: healthy appearing, comfortable and no acute distress; No confusion Orientation/consciousness: No confusion Eyes: Direct Ophthalmoscopy: No photophobia Resp: Auscultation: clear to auscultation bilaterally, no rales, no rhonchi and no wheezes Cardio: Rate: regular rate Heart sounds: no click, no murmurs and no rubs GI: Inspection: non-distended GI Palp: No abdominal tenderness Auscultation: normal bowel sounds Neuro: General: No confusion Speech: No Abnormal speech present Extrem: General: normal to inspection, no pedal edema and no calf tenderness Assessment and Plan Assessment and plan (1) Nausea and vomiting: Code(s): R11.2 - Nausea with vomiting, unspecified Status: Acute Assessment and Plan: This patient is a 24-year-old multi hip with severe nausea vomiting at 36 weeks gestation. At she appears to have significant anxiety. She is known to have an anxiety problem. She has reassuring status. She has previously treated with promethazine suppository, Kailyn
[2019-12-22 07:51] LABS: Glucose Point of Care 104 (65-105)
[2019-12-22] MEDS: LACTATED RINGERS 1,000 ML 999 ML IV CONT (08:00)
[2019-12-22 08:25] LABS: Hematocrit 32.7 % (37.0-47.0); Hemoglobin 11.1 g/dL (12.0-15.0); Mean Corpuscular HGB Conc 33.9 g/dl (32-36); Mean Corpuscular Hemoglobin 31.7 pg (26-34); Mean Corpuscular Volume 93.4 fl (80-100); Mean Platelet Volume 11.4 fl (7.4-10.4); Platelet Count Result 184 k/mm3 (150-375); Red Cell Distribution Width 13.8 % (11.5-14.5); White Blood Count 11.4 K/mm3 (4.5-10.0)
[2019-12-22 08:40] LABS: Alanine Aminotransferase 11 U/L (4-35); Albumin Level 3.6 g/dL (3.5-5.1); Alkaline Phosphatase 115 U/L (38-126); Aspartate Amino Transferase 22 U/L (14-36); Bilirubin,Total 0.3 mg/dL (0.2-1.3); Blood Urea Nitrogen 6 mg/dL (7-17); Calcium 8.2 mg/dL (8.4-10.2); Carbon Dioxide 21 mmol/L (22-30); Chloride 107 mmol/L (98-107); Estimated Glomerular Filt Rate > 60; Glucose 111 mg/dL (65-105); Potassium 3.5 mmol/L (3.4-5.0); Sodium 135 mmol/L (137-145)
[2019-12-22] MEDS: ONDANSETRON INJ 4 MG/2 ML VIAL 8 MG IV PUSH (08:40)
[2019-12-22] MEDS: PANTOPRAZOLE SODIUM IV 40 MG VIAL IV PUSH (09:42)
[2019-12-22 10:22] LABS: Add Urine Microscopic? YES; Appearance Urine Cloudy (Clear); Bacteria Urine Trace /hpf; Bilirubin Urine Negative (Negative); Blood Urine Negative (Negative); Color Urine Yellow (Yellow); Glucose Urine UA Negative (Negative); Ketones Urine 1+ mg/dL (Negative); Leukocyte Esterase Ur 3+ LEU/UL (Negative); Nitrate Urine Negative (Negative); Protein Urine Negative (Negative); RBC Urine 0-2 /hpf (0-2); Specific Grav Ur 1.014 (1.001-1.035); Squamous Epithelial Cell Urine Many /hpf (Few); Urobilinogen Urine Negative mg/dL (<2.0); WBC Urine 31-50 /hpf
[2019-12-22] MEDS: TERBUTALINE SULFATE 1 MG/ML VIAL 0.25 MG SUB-Q (11:43)
[2019-12-22] MEDS: SODIUM CHLORIDE 0.9% IV 100 ML 50 ML (11:55)
[2019-12-22] MEDS: BETAMETHASONE SOD PHOS/ACETATE 30 MG/5 ML VIAL 12 MG IM (12:04)
[2019-12-22] MEDS: PROMETHAZINE HCL 25 MG SUPP.RECT RECTAL ×2 (12:16→18:18)
[2019-12-22 12:40] LABS: Glucose Point of Care 109 (65-105)
[2019-12-22 13:08] LABS: Amphetamine Screen Urine Negative (Negative); Barbiturate Screen Urine Negative (Negative); Benzodiazepines Screen Urine Positive (Negative); Cannabinoid Screen Urine Positive (Negative); Cocaine Screen Urine Negative (Negative); Methadone Screen Urine Negative (Negative); Opiate Screen Urine Negative (Negative); Phencyclidine Screen Urine Negative (Negative)
[2019-12-22] MEDS: LACTATED RINGERS 1,000 ML 150 ML IV CONT (14:52)
--- NOTE | 2019-12-22 16:30 | PCCCNOTE ---
Social Service Consult Met with pt. this afternoon to discuss services. Pt. is currently 35 weeks . This is pt.'s 2nd child. FOB is not involved. Pt. lives at home with her father, Odin who is her biggest support system. Pt. reports throughout current she has suffered from hyperemesis and gestational diabeties, both have caused her to be unable to work. Pt. is visibly emotional and states she has been absolutely miserable during the . Pt. has been unable to eat or hold down meals for months. Pt. reports difficulty paying bills as she has not been able to work and does not have the ability to file for unemployment. Pt. reports she is current on WIC and receives [employer] services however these services have not been enough lately. Pt. is visibly upset that she owes money for bills and feels that she is a burden to her father. Emotional support provided. Pt. has struggled with anxiety and depression for almost 10 years, per pt. she has tried medication in the past with no positive results. Pt. reports frustration with current health but denies any suicidal ideations. Pt. reports she does not have a plan to harm herself nor has ever had feelings that she wanted to end her life. Pt. reports she just wants the nightmare to be over with so she can feel healthier. Pt. reports that this has exacerbated her anxiety with several panic attacks a week. Pt. reports she panics when she vomits as she cannot breath or calm down for several minutes. Pt. reports she panics when she has to give herself insulin shots. Pt. does state she has a friend that has offered to assist with insulin shots if she were to require it at discharge. Encouraged pt. to utilize supports as this will help her. Pt.'s PCP through [facility] in [place] recently left the practice and she has been unable to establish with a different provider. Encouraged pt. to contact [facility] to establish with a new PCP and to seek counseling and possible mental health and medication services. Provided information on behavioral health and counseling services to pt. Also provided food resources including food pantry/meals on wheels to assist with pt. and pt.'s 70 year old father Odin. resources provided to assist pt. in obtaining furniture and clothing for upcoming baby. Pt. does report she has transportation so that she can make it to appointments. Pt. is worried that she tested positive for THC at admission, per nursing and pt. she has been using THC recreationally to assist with hyperemesis and anxiety. Pt. reports THC is the only thing that seems to help however she is unable to afford recreational THC prices so she can only take occasionally. Pt. does report that when she is able to use THC she asks Odin to babysit her 2 year old so she can rest.
--- NOTE | 2019-12-22 18:25 | PC.NURSE ---
Patient denies nausea at present time. Patient reports she was able to eat 75% of lunch without complaints of nausea/emesis. Patient denies feeling contractions currently. Patient reports intermittent uterine irritability.
[2019-12-22 18:42] LABS: Glucose Point of Care 102 (65-105)
--- NOTE | 2019-12-22 18:56 | PC.NURSE ---
Updated Dr. Theodore on maternal assessment. Patient tolerating regular PO diet without complaint of nausea/emesis. Vital signs stable. Patient spoke with care process manager about plan for outpatient therapy for anxiety. 1st celestone injection administered at 1200. Order for discharge to home. Patient to start taking glyburide 5mg PO HS and continue to monitor BG. Patient to return to OB unit tomorrow for second dose of celestone.
--- NOTE | 2019-12-22 19:22 | PC.NURSE ---
Called Dr. Theodore to discuss patient home meds. Patient states she starts feeling cramping and nausea following morning suppository of promethazine. Order given for 25mg PO Q6PRN Promethazine prescription.
--- NOTE | 2019-12-22 20:00 | PC.NURSE ---
Discharge orders reviewed with patient. Patient educated on Glyburide and Promethazine prescriptions. Patient instructed to pick prescriptions up at her preferred pharmacy. Patient states understanding. [place] diet reviewed with patient. Patient encouraged increase fluid intake and maintain bland diet. Patient states understanding. Pre-term labor precautions reviewed with patient. Patient instructed to return to OB unit at 1200 for celestone injection. Patient states understanding. Patient agrees to discharge and denies questions.
== END 2019-12-22 20:05 | disposition home or self-care (01) ==
PROVIDERS: Admitting Provider Obstetrics & Gynecology; PCP Advanced Practice Midwife; Visit Provider Obstetrics & Gynecology
DX: O21.2 Late vomiting of pregnancy (principal); O24.414 Gestational diabetes mellitus in pregnancy, insulin controlled; Z3A.36 36 weeks gestation of pregnancy
CPT/HCPCS: 36415; 80053; 80307; 81001; 85027; 87086; 87088; 96361; 96365; 96372; 96375; 96376; A9270; C9113; G0378; G0379; J0696; J0702; J1200; J2405; J3105; J3360; J7120

== ENCOUNTER 2019-12-23 12:04 | Outpatient (CLI) | payer OTHER, SELFPAY ==
[2019-12-23] MEDS: BETAMETHASONE SOD PHOS/ACETATE 30 MG/5 ML VIAL 12 MG IM (12:45)
--- NOTE | 2019-12-23 12:52 | PC.NURSE ---
Dr. Theodore informed pt here and received her 2nd dose of Celestone. Pt did start the Glyburide last night around 2330, fasting BS was 170 this am. Pt did have some toast and jelly this morning and then repeat BS was 138. Current BS is 77. Pt states she missed her U/S for EFW when she was here in the hospital yesterday and wants to know if she can have it today. MD states to have pt call office on Thursday and reschedule with her office appointment this week. Pt going to complete her pre-admission and then go home. Pt given menu to order food. Pt thinks a cheeseburger sounds good. Encouraged pt to only eat 1/2 of the bun.
[2019-12-23 13:00] LABS: Glucose Point of Care 77 (65-105)
== END 2019-12-23 12:20 | disposition other institution (70) ==
LOC: ANHOBOP 12:19 → ANHLDR 12:19
PROVIDERS: PCP Advanced Practice Midwife; Visit Provider Obstetrics & Gynecology
DX: Z34.93 Encounter for supervision of normal pregnancy, unspecified, third trimester (principal)
CPT/HCPCS: 99199; J0702

== ENCOUNTER 2019-12-27 07:24 | Observation (INO) | payer OTHER, SELFPAY ==
--- NOTE | ~2019-12-27 | US_ITS ---
EXAMINATION: US OB BPP wo non-stress DATE: 12/27/2019 09:25 INDICATION: Contractions. Gestational diabetes. Third trimester. TECHNIQUE: Real-time pelvic ultrasound was performed. COMPARISON: Ultrasound 12/12/2019 FINDINGS: There is a single living fetus in vertex presentation. The placenta is posterior. heart rate i s 157 beats per minute (bpm). Biophysical profile performed by the technologist: breathing (30 sec sustained breathing in 30 minutes): 2 out of 2 movement (3 gross body movements in 30 minutes): 2 out of 2 tone (one episode of rbilkmy-dyizwfzzk-ncrxroz limb movement): 2 out of 2 Amniotic fluid pocket (2 cm): 2 out of 2 Total score: 8 out of 8 IMPRESSION: 1. Single living fetus in vertex presentation. 2. Biophysical profile 8 out of 8. Reviewed, dictated and finalized at location A.
[2019-12-27 07:40] VITALS: BP 120/76; PULSE 82
[2019-12-27 07:45] VITALS: BP 114/75; PULSE 83
[2019-12-27 07:52] VITALS: BMI 56.9
[2019-12-27 08:00] VITALS: BP 115/74; PULSE 84
[2019-12-27 08:15] VITALS: BP 112/78; PULSE 82
[2019-12-27 08:30] VITALS: BP 113/71; PULSE 80
[2019-12-27 08:45] VITALS: BP 115/70; PULSE 79
[2019-12-27] MEDS: ACETAMINOPHEN 500 MG TABLET 1000 MG PO (10:31)
[2019-12-27 19:20] LABS: Glucose Point of Care 72 (65-105)
--- NOTE | 2019-12-30 07:30 | PM.OBTRLD ---
OB - Triage/Final Diagnosis Visit Information Date of evaluation: 12/28/19 Reason for evaluation: threatened labor Evaluation Laboratory results: Laboratory Tests 12/27/19 09:52 POC Capillary Glucose 72
== END 2019-12-27 10:50 | disposition home or self-care (01) ==
LOC: ANHOBPP 07:29
PROVIDERS: Admitting Provider Obstetrics & Gynecology; PCP Advanced Practice Midwife; Visit Provider Obstetrics & Gynecology
DX: O60.00 Preterm labor without delivery, unspecified trimester (principal); Z3A.36 36 weeks gestation of pregnancy
CPT/HCPCS: 76819; 84112; A9270; G0378; G0379

== ENCOUNTER 2019-12-29 10:57 | Observation (INO) | payer OTHER, SELFPAY ==
[2019-12-29 11:30] VITALS: BP 121/79; PULSE 79
[2019-12-29 11:45] VITALS: BP 101/58; PULSE 78
[2019-12-29] MEDS: ACETAMINOPHEN 500 MG TABLET 1000 MG PO (15:00)
[2019-12-29 15:08] VITALS: BMI 26.5
[2019-12-29 16:19] LABS: Hemoglobin A1C 5.2 % (<5.7)
[2019-12-29 16:22] LABS: Alanine Aminotransferase 9 U/L (4-35); Albumin Level 3.4 g/dL (3.5-5.1); Alkaline Phosphatase 108 U/L (38-126); Aspartate Amino Transferase 15 U/L (14-36); Bilirubin,Total 0.2 mg/dL (0.2-1.3); Blood Urea Nitrogen 6 mg/dL (7-17); Calcium 8.2 mg/dL (8.4-10.2); Carbon Dioxide 26 mmol/L (22-30); Chloride 104 mmol/L (98-107); Estimated CRCL calculation 134 ml/min; Estimated Glomerular Filt Rate > 60; Glucose 88 mg/dL (65-105); Potassium 3.4 mmol/L (3.4-5.0); Sodium 137 mmol/L (137-145)
--- NOTE | 2019-12-29 17:42 | OBADM ---
This patient, Bridget Hendrix, admitted to the OB room OB Post 115 for observation. Patient/family oriented to hospital policies and general routines including ID bracelet, bed and alarms, visiting hours, pain management, procedures, bathroom and other care routines, personal items, smoking policy, room service/diet, call light, and visiting hours. Patient/Family are encouraged to report perceived risks to care and to ask questions if they do not understand what they are told or what they should do.
--- NOTE | 2019-12-29 17:51 | PCCDE ---
Ree consulted several times at 1149, 1230, 1310, and 1317 regarding diabetes education and care. Diabetes education folder with education and diary given to patient. Annalee ARZATE is also aware of education, test results, along with a POC to keep a food/glucose diary for follow up appt.
--- NOTE | 2020-01-14 21:39 | PM.OBTRLD ---
OB - Triage/Final Diagnosis Evaluation Laboratory results: Laboratory Tests 12/29/19 12/29/19 16:04 16:04 Sodium 137 Potassium 3.4 Chloride 104 Carbon Dioxide 26 BUN 6 L Creatinine 0.60 L Estim Creat Clear Calc 134 Estimated GFR > 60 Glucose 88 Hemoglobin A1c 5.2 Calcium 8.2 L Total Bilirubin 0.2 AST 15 ALT 9 Alkaline Phosphatase 108 Total Protein 6.0 L Albumin 3.4 L Final Diagnosis (1) Gestational diabetes mellitus (GDM): Code(s): O24.419 - Gestational diabetes mellitus in , unspecified control Status: Acute
== END 2019-12-29 17:55 | disposition home or self-care (01) ==
PROVIDERS: Advanced Practice Midwife; Admitting Provider Obstetrics & Gynecology; Visit Provider Obstetrics & Gynecology
DX: O24.419 Gestational diabetes mellitus in pregnancy, unspecified control (principal); Z3A.36 36 weeks gestation of pregnancy
CPT/HCPCS: 36415; 59025; 80053; 83036; A9270; G0378; G0379

== ENCOUNTER 2020-01-10 15:50 | Observation (INO) | payer OTHER, SELFPAY ==
[2020-01-10 16:01] VITALS: TEMP 36.9
[2020-01-10 17:00] VITALS: BMI 26.4
--- NOTE | 2020-01-10 17:40 | OBADM ---
This patient, Bridget Hendrix, admitted to the OB room Labor/Delivery/Recovery 104 for observation. Patient/family oriented to hospital policies and general routines including ID bracelet, bed and alarms, visiting hours, pain management, procedures, bathroom and other care routines, personal items, smoking policy, room service/diet, and visiting hours. Patient/Family are encouraged to report perceived risks to care and to ask questions if they do not understand what they are told or what they should do.
--- NOTE | 2020-01-10 17:45 | PC.NURSE ---
1702-SMitzi HEADLEY called,informed pt came in stating she has been cramping since 229. 2 contractions noted on the monitor over the last 2 hours, SVE is 2cm and very posterior which is the same as 2 weeks ago. Informed of two variables after SVE, orders received to discharge home
--- NOTE | 2020-01-12 21:51 | PM.OBTRLD ---
OB - Triage/Final Diagnosis Visit Information Date of evaluation: 01/10/20 Reason for evaluation: threatened labor
--- NOTE | 2020-01-17 07:24 | PM.OBTRLD ---
OB - Triage/Final Diagnosis Visit Information Date of evaluation: 01/12/20 Reason for evaluation: threatened labor
== END 2020-01-10 17:38 | disposition home or self-care (01) ==
PROVIDERS: Admitting Provider Obstetrics & Gynecology; Visit Provider Obstetrics & Gynecology
DX: O47.1 False labor at or after 37 completed weeks of gestation (principal); Z3A.38 38 weeks gestation of pregnancy
CPT/HCPCS: G0378; G0379

== ENCOUNTER 2020-01-14 05:58 | Inpatient (IN) | payer OTHER, SELFPAY ==
[2020-01-14] VITALS (128 sets, daily range): BP systolic 94–137; BP diastolic 65–107; PULSE 59–131; RESP 18–20; TEMP 36.3–37.2; O2SAT 84–100; BMI 26.4
--- NOTE | 2020-01-14 07:00 | OBADM ---
This patient, Bridget Hendrix, admitted to the OB room 105 for observation for nausea, vomiting, and diarrhea. Patient/family oriented to hospital policies and general routines including ID bracelet, bed and alarms, visiting hours, pain management, procedures, bathroom and other care routines, personal items, smoking policy, room service/diet, and visiting hours. Patient/Family are encouraged to report perceived risks to care and to ask questions if they do not understand what they are told or what they should do.
[2020-01-14 07:21] LABS: Add Urine Microscopic? YES; Appearance Urine Clear (Clear); Bacteria Urine Trace /hpf; Bilirubin Urine Negative (Negative); Blood Urine Negative (Negative); Color Urine Yellow (Yellow); Glucose Urine UA Negative (Negative); Ketones Urine 1+ mg/dL (Negative); Leukocyte Esterase Ur Negative LEU/UL (Negative); Mucus Urine Rare /lpf; Nitrate Urine Negative (Negative); Protein Urine Negative (Negative); RBC Urine 0-2 /hpf (0-2); Specific Grav Ur 1.016 (1.001-1.035); Squamous Epithelial Cell Urine Occasional /hpf (Few); WBC Urine 0-3 /hpf
[2020-01-14 07:33] LABS: Glucose Point of Care 69 (65-105)
[2020-01-14] MEDS: LACTATED RINGERS 1,000 ML 125 ML IV CONT ×2 (11:05→19:11)
[2020-01-14] MEDS: AMPICILLIN 2 GM/NS 100 ML 2 GM/100 ML BAG IVPB (11:05)
[2020-01-14 11:10] LABS: Basophils Percent Auto 0.1 % (0.2-1.2); Eosinophils Absolute Auto 0.2 K/mm3 (0-0.3); Hematocrit 34.5 % (37.0-47.0); Hemoglobin 11.7 g/dL (12.0-15.0); Immature Granulocyte Absolute 0.03 K/mm3 (0.00-0.031); Immature Granulocyte Percent A 0.3 % (0-0.5); Lymphocytes Absolute Auto 1.31 K/mm3 (0.9-3.2); Lymphocytes Percent Auto 13.7 % (18.3-44.2); Mean Corpuscular HGB Conc 33.9 g/dl (32-36); Mean Corpuscular Hemoglobin 30.5 pg (26-34); Mean Corpuscular Volume 90.1 fl (80-100); Mean Platelet Volume 11.8 fl (7.4-10.4); Monocytes Absolute Auto 0.6 K/mm3 (0.1-0.6); Monocytes Percent Auto 5.8 % (2.6-8.5); Neutrophils Absolute Auto 7.5 K/mm3 (1.3-6.7); Neutrophils Percent Auto 78.1 % (45.5-73.1); Platelet Count Result 190 k/mm3 (150-375); Red Blood Count 3.83 M/mm3 (4.2-5.4); Red Cell Distribution Width 13.6 % (11.5-14.5); White Blood Count 9.6 K/mm3 (4.5-10.0)
--- NOTE | 2020-01-14 11:22 | WPDOBADMIT ---
Obstetrics - Admit Note Admission Note: 24 y/o @ 38w5d here with some exacerbation of hyperemesis and contractions. FHR overall reassuring but pt has had some late and variable decelerations. Decision was made to keep and augement labor. VSS Contractions irreguar FHR category 2 Cervix 2/50/-2 AROM small amount of thick meconium fluid Epidural as desired Pedi to be present for delivery Anticipate . record reviewed. No pertinent additions to the history and/or any subsequent changes in the physical findings that are not consistent with the expected course of the were found. Additions to the history and/or subsequent changes in the physical findings follow. None.
[2020-01-14 11:43] LABS: Alanine Aminotransferase 9 U/L (4-35); Albumin Level 3.6 g/dL (3.5-5.1); Alkaline Phosphatase 159 U/L (38-126); Anion Gap 10.8 mmol/L (7-16); Aspartate Amino Transferase 18 U/L (14-36); Bilirubin,Total 0.3 mg/dL (0.2-1.3); Blood Urea Nitrogen 7 mg/dL (7-17); Calcium 8.4 mg/dL (8.4-10.2); Carbon Dioxide 22 mmol/L (22-30); Chloride 105 mmol/L (98-107); Estimated CRCL calculation 134 ml/min; Estimated Glomerular Filt Rate > 60; Glucose 69 mg/dL (65-105); Potassium 3.8 mmol/L (3.4-5.0); Sodium 134 mmol/L (137-145)
[2020-01-14] MEDS: ACETAMINOPHEN 325 MG TABLET 650 MG PO ×2 (12:44→17:37)
[2020-01-14 13:15] LABS: Amphetamine Screen Urine Negative (Negative); Barbiturate Screen Urine Negative (Negative); Benzodiazepines Screen Urine Negative (Negative); Cannabinoid Screen Urine Positive (Negative); Cocaine Screen Urine Negative (Negative); Methadone Screen Urine Negative (Negative); Opiate Screen Urine Negative (Negative); Phencyclidine Screen Urine Negative (Negative)
[2020-01-14] MEDS: OXYTOCIN 30 UNITS/NS 500 ML 30 UNITS/500 ML BAG IV CONT (14:23)
[2020-01-14] MEDS: AMPICILLIN 1 GM/NS 50 ML 1 GM/50 ML BAG IVPB ×2 (15:01→18:57)
--- NOTE | 2020-01-14 15:20 | WPDANESEPP ---
Anes - Eval Pre Procedure Procedure: Labor Epidural Date/Time: 01/14/20 15:20 Pre Op Diagnosis: nausea/vomiting/diarrhea Patient Data Age: 24 Gender: F Height: 1.78 m Weight: 83.5 kg Last Vital Signs Temp 36.9 C 01/14/20 06:38 Pulse 75 01/14/20 15:01 BP 122/85 01/14/20 15:01 Allergies Allergy/AdvReac Type Severity Reaction Status Date / Time metoclopramide [From Reglan] Allergy Muscle Verified 10/04/19 11:08 Spasms hydrocodone AdvReac Mild NAUSEA Verified 08/07/19 18:30 Home Medications Medication Instructions Recorded Confirmed Type diphenhydramine HCl [Benadryl] 25 mg PO Q6H PRN 12/20/19 12/22/19 History omeprazole 20 mg PO DAILY 12/20/19 12/22/19 History glyburide 5 mg PO HS #30 tablet 12/22/19 Rx promethazine 25 mg PO Q6H PRN #30 tablet 12/29/19 Rx Laboratory Tests 01/14/20 01/14/20 01/14/20 07:08 07:13 10:52 WBC 9.6 K/mm3 K/mm3 (4.5-10.0) RBC 3.83 M/mm3 L M/mm3 (4.2-5.4) Hgb 11.7 g/dL L g/dL (12.0-15.0) Hct 34.5 % L % (37.0-47.0) MCV 90.1 fl fl (80-100) MCH 30.5 pg pg (26-34) MCHC 33.9 g/dl g/dl (32-36) RDW 13.6 % % (11.5-14.5) Plt Count 190 k/mm3 k/mm3 (150-375) MPV 11.8 fl H fl (7.4-10.4) Immature Gran % (Auto) 0.3 % % (0-0.5) Neut % (Auto) 78.1 % H % (45.5-73.1) Lymph % (Auto) 13.7 % L % (18.3-44.2) [place] % (Auto) 5.8 % % (2.6-8.5) Eos % (Auto) 2.0 % % (0-4.4) Baso % (Auto) 0.1 % L % (0.2-1.2) Lymph # (Auto) 1.31 K/mm3 K/mm3 (0.9-3.2) [place] # (Auto) 0.6 K/mm3 K/mm3 (0.1-0.6) Eos # (Auto) 0.2 K/mm3 K/mm3 (0-0.3) Baso # (Auto) 0.0 K/mm3 K/mm3 (0.0-0.1) Abs Immat Gran (auto) 0.03 K/mm3 K/mm3 (0.00-0.031) Absolute Neuts (auto) 7.5 K/mm3 H K/mm3 (1.3-6.7) Absolute Nucleated RBC 0.0 K/mm3 K/mm3 (0.0-0.012) Nucleated RBC % 0.0 % % (0.0-0.2) Sodium Potassium Chloride Carbon Dioxide Anion Gap BUN Creatinine Estim Creat Clear Calc Estimated GFR Glucose POC Capillary Glucose 69 mg/dl mg/dl (65-105) Calcium Total Bilirubin AST ALT Alkaline Phosphatase Total Protein Albumin Urine Color Yellow (Yellow) Urine Appearance Clear (Clear) Urine pH 7.0 (5.0-9.0) Ur Specific [place] 1.016 (1.001-1.035) Urine Protein Negative mg/dL mg/dL (Negative) Urine Glucose (UA) Negative mg/dL mg/dL (Negative) Urine Ketones 1+ mg/dL H mg/dL (Negative) Ur Blood (Man) Negative (Negative) Urine Nitrate Negative (Negative) Urine Bilirubin Negative (Negative) Urine Urobilinogen 2.0 mg/dL H mg/dL (<2.0) Leukocyte Esterase Rfl Negative LOUANN/UL LOUANN/UL (Negative) Urine RBC 0-2 /hpf /hpf (0-2) Urine WBC 0-3 /hpf /hpf Ur Squamous Epith Cells Occasional /hpf /hpf (Few) Urine Bacteria Trace /hpf /hpf Urine Mucus Rare /lpf /lpf Urine Opiates Screen Urine Methadone Screen Ur Barbiturates Screen Ur Phencyclidine Scrn Ur Amphetamine Screen U Benzodiazepines Scrn Urine Cocaine Screen U Cannabinoids Screen RPR Blood Type Antibody Screen 01/14/20 01/14/20 01/14/20 10:52 10:52 10:52 WBC RBC Hgb Hct MCV MCH MCHC RDW Plt Count MPV Immature Gran % (Auto) Ne
[2020-01-14 16:40] LABS: Glucose Point of Care 63 (65-105)
[2020-01-14] MEDS: FAMOTIDINE 20 MG/2 ML VIAL IV PUSH (18:56)
[2020-01-14 19:19] LABS: Glucose Point of Care 70 (65-105)
--- NOTE | 2020-01-14 20:23 | PM.OBPRVD ---
OB - Delivery Note Procedure Delivery date: 01/14/20 events: Gestational Diabetes and Meconium Stained Fluid Intrapartal events: None Induction method: AROM Delivery monitor: external FHT and external uterine Route of delivery: Episiotomy description: None Laceration description: None Specimen: Yes Estimated blood loss (mL): 189 Anesthesia type: Epidural Baby Date of : 01/14/20 Time of : 20:09 Weeks of gestation at delivery: 38 gender: Female Weight (pounds): 5 Weight (ounces): 12 presentation: vertex position: Left Occiput Anterior Placenta delivery description: Spontaneous (meconium stained) cord vessel description: Nuchal Cord and Reduced score one minute: 8 score five minutes: 9
[2020-01-14] MEDS: OXYTOCIN 30 UNITS/NS 500 ML 30 UNITS/500 ML BAG 125 UNITS (20:46)
[2020-01-14] MEDS: WITCH HAZEL 40 PADS 1 PAD TOPICAL (22:53)
[2020-01-14] MEDS: BENZOCAINE 20% AER SPR (*SP) 56 GM CAN 1 SPRAY TOPICAL (22:53)
--- NOTE | 2020-01-14 23:18 | PC.NURSE ---
Patient transferred to post room #288 via wheelchair. Support person present. Oriented to unit, room, information board, rooming in, admission packet and security measures. Patient verbalizes understanding.
[2020-01-14] MEDS: PROMETHAZINE HCL 25 MG TABLET PO (23:43)
[2020-01-14] MEDS: diphenhydrAMINE HCl CAP 25 MG CAPSULE PO (23:43)
[2020-01-15 06:06] LABS: Hematocrit 30.9 % (37.0-47.0); Hemoglobin 10.7 g/dL (12.0-15.0)
[2020-01-15 06:30] VITALS: BP 123/80; PULSE 64; RESP 20; TEMP 36.8
--- NOTE | 2020-01-15 08:34 | WPDANLDPN2 ---
Anes-Prog Note L&D Date/Time: 01/15/20 08:34 Comfortable throughout: labor and delivery Neuraxial method: epidural Neuro status: Neuro function grossly intact. Cardiovascular status: normal Respiratory status: normal Airway patency: baseline Mental status: baseline Post-Op hydration status: normal Vital Signs: Last Vital Signs Temp 36.8 C 01/15/20 06:30 Pulse 64 01/15/20 06:30 Resp 20 01/15/20 06:30 BP 123/80 01/15/20 06:30 Pulse Ox 100 01/14/20 23:30 Pain score (VAS): 0/10. Patient resting in bed at time of assessment, appears comfortable. Support person at bedside. RN at bedside. All questions answered at time of assessment, no additional concerns. I/O: Intake & Output 01/14/20 01/15/20 01/15/20 23:59 07:59 15:59 Intake Total 1850 Output Total 78 Balance 1772 Post-procedural complaints: none Patient feedback: Patient satisfied with anesthetic care.
--- NOTE | 2020-01-15 09:30 | PM.OBPNVD ---
OB - PN: Subj Subjective Date/time seen: 01/15/20 09:30 OB - PN: Obj Data Labs CBC & Chem 7: 01/15/20 05:48 01/14/20 10:52 Labs: Laboratory Results - last 24 hr 01/14/20 01/14/20 01/14/20 10:52 10:52 10:52 WBC 9.6 RBC 3.83 L Hgb 11.7 L Hct 34.5 L MCV 90.1 MCH 30.5 MCHC 33.9 RDW 13.6 Plt Count 190 MPV 11.8 H Immature Gran % (Auto) 0.3 Neut % (Auto) 78.1 H Lymph % (Auto) 13.7 L [place] % (Auto) 5.8 Eos % (Auto) 2.0 Baso % (Auto) 0.1 L Lymph # (Auto) 1.31 [place] # (Auto) 0.6 Eos # (Auto) 0.2 Baso # (Auto) 0.0 Abs Immat Gran (auto) 0.03 Absolute Neuts (auto) 7.5 H Absolute Nucleated RBC 0.0 Nucleated RBC % 0.0 Sodium 134 L Potassium 3.8 Chloride 105 Carbon Dioxide 22 Anion Gap 10.8 BUN 7 Creatinine 0.60 L Estim Creat Clear Calc 134 Estimated GFR > 60 Glucose 69 POC Capillary Glucose Calcium 8.4 Total Bilirubin 0.3 AST 18 ALT 9 Alkaline Phosphatase 159 H Total Protein 7.0 Albumin 3.6 Urine Opiates Screen Urine Methadone Screen Ur Barbiturates Screen Ur Phencyclidine Scrn Ur Amphetamine Screen U Benzodiazepines Scrn Urine Cocaine Screen U Cannabinoids Screen Blood Type A Positive Antibody Screen Negative 01/14/20 01/14/20 01/14/20 12:46 16:29 19:14 WBC RBC Hgb Hct MCV MCH MCHC RDW Plt Count MPV Immature Gran % (Auto) Neut % (Auto) Lymph % (Auto) [place] % (Auto) Eos % (Auto) Baso % (Auto) Lymph # (Auto) [place] # (Auto) Eos # (Auto) Baso # (Auto) Abs Immat Gran (auto) Absolute Neuts (auto) Absolute Nucleated RBC Nucleated RBC % Sodium Potassium Chloride Carbon Dioxide Anion Gap BUN Creatinine Estim Creat Clear Calc Estimated GFR Glucose POC Capillary Glucose 63 L 70 Calcium Total Bilirubin AST ALT Alkaline Phosphatase Total Protein Albumin Urine Opiates Screen Negative Urine Methadone Screen Negative Ur Barbiturates Screen Negative Ur Phencyclidine Scrn Negative Ur Amphetamine Screen Negative U Benzodiazepines Scrn Negative Urine Cocaine Screen Negative U Cannabinoids Screen Positive A Blood Type Antibody Screen 01/15/20 05:48 WBC RBC Hgb 10.7 L Hct 30.9 L MCV MCH MCHC RDW Plt Count MPV Immature Gran % (Auto) Neut % (Auto) Lymph % (Auto) [place] % (Auto) Eos % (Auto) Baso % (Auto) Lymph # (Auto) [place] # (Auto) Eos # (Auto) Baso # (Auto) Abs Immat Gran (auto) Absolute Neuts (auto) Absolute Nucleated RBC Nucleated RBC % Sodium Potassium Chloride Carbon Dioxide Anion Gap BUN Creatinine Estim Creat Clear Calc Estimated GFR Glucose POC Capillary Glucose Calcium Total Bilirubin AST ALT Alkaline Phosphatase Total Protein Albumin Urine Opiates Screen Urine Methadone Screen Ur Barbiturates Screen Ur Phencyclidine Scrn Ur Amphetamine Screen U Benzodiazepines Scrn Urine Cocaine Screen U Cannabinoids Screen Blood Type Antibody Screen OB - PN A/P Plan day: 1 Plan: routine care Time Spent With Patient Time: Total time spent is greater than 50% in coordination of care (as documented) at patient's floor/unit and/or counseling patient: Time with patient: less than 15 minutes Exam Narrative: Exam Narrative: Fundus firm and vaginal flow controlled.
[2020-01-15] MEDS: IBUPROFEN 600 MG TABLET PO (17:56)
[2020-01-15 20:00] VITALS: BP 108/70; PULSE 72; RESP 16; TEMP 36.6; O2SAT 99
[2020-01-15] MEDS: ACETAMINOPHEN 325 MG TABLET 650 MG PO (21:25)
[2020-01-16] VITALS (13 sets, daily range): BP systolic 111–132; BP diastolic 70–93; PULSE 61–92; RESP 8–18; TEMP 36.1–37.2; O2SAT 96–100
[2020-01-16] MEDS: ZOLPIDEM TARTRATE 5 MG TABLET PO (00:20)
[2020-01-16 10:06] LABS: Rapid Plasma Reagin Non-Reactive (NonReactive)
--- NOTE | 2020-01-16 10:29 | PC.NURSE ---
Attempted to start IV in left forearm and in left hand, good blood return initially but when I tried to flush the vein it blew. will notify pre-op.
[2020-01-16] MEDS: IBUPROFEN 600 MG TABLET PO ×2 (10:32→17:21)
[2020-01-16] MEDS: LACTATED RINGERS 1,000 ML 30 ML IV CONT ×3 (11:35→13:01)
--- NOTE | 2020-01-16 11:36 | PC.NURSE ---
Patient taken to pre-op per bed.
--- NOTE | 2020-01-16 12:06 | WPDANESEPPF ---
Anes - Initial Pre Proc Eval Procedure: Operation Date: 01/16/20 12:30 Proposed Procedures p Post- Tubal Ligation - Watson Theodore MD Date/Time: 01/16/20 12:06 Surgeon: Watson Theodore MD Pre Op Diagnosis: nausea/vomiting/diarrhea Patient Data Age: 24 Gender: F Height: 1.78 m Weight: 83.5 kg Last Vital Signs Temp 37.2 C 01/16/20 11:34 Pulse 78 01/16/20 11:34 Resp 16 01/16/20 11:34 BP 132/91 H 01/16/20 11:34 Pulse Ox 99 01/16/20 11:34 Allergies Allergy/AdvReac Type Severity Reaction Status Date / Time metoclopramide [From Reglan] Allergy Muscle Verified 10/04/19 11:08 Spasms hydrocodone AdvReac Mild NAUSEA Verified 08/07/19 18:30 Home Medications Medication Instructions Recorded Confirmed Type diphenhydramine HCl [Benadryl] 25 mg PO Q6H PRN 12/20/19 01/15/20 History omeprazole 20 mg PO DAILY 12/20/19 01/15/20 History glyburide 5 mg PO HS #30 tablet 12/22/19 01/15/20 Rx promethazine 25 mg PO Q6H PRN #30 tablet 12/29/19 01/15/20 Rx Laboratory Tests 01/14/20 10:52 RPR Non-reactive (NonReactive) Patient hx anesthesia problems: none Family hx anesthesia problems: none PMFSH Past Medical History Medical History Asthma Depression Migraine Surgical History Surgical History H/O inguinal hernia repair [place] teeth extracted Family History Family History Father Hypertension Mother Skin cancer Sibling Skin cancer Lung cancer Grandparent Asthma Social History Social History Smoking status: Never smoker Substance use: never Gender identity (if verbalized by the patient): Female Spiritual care concerns: No Anes - Eval Final PreProcedure Day of Procedure 01/16/20 12:06 Patient weight: overweight Heart: regular rate and rhythm Lungs: clear to auscultation and normal air movement Airway: Mallampati scale class II Neurological: alert and oriented Last oral intake: >/= 8 hours ASA classification: II Emergent: no Anesthetic plan: proceed Anesthesia type and monitoring: general ETT and standard monitoring Informed Consent: The patient's anesthetic plan and its attendant risks and benefits were discussed with the patient/family/POA. Questions were solicited and answers provided to the satisfaction of the patient/family/POA.
--- NOTE | 2020-01-16 12:57 | PM.PROC ---
Procedure Note - Detailed Date of procedure: 01/16/20 Pre-op diagnosis: nausea/vomiting/diarrhea Unwanted fertility, term delivered Post-op diagnosis: same Procedure performed: tubal ligation Description of procedure: The patient was taken to the operating room. She was prepped and draped in the dorsal spine position. A curvilinear infraumbilical incision was made with the scalpel. The fascia superiorly inferiorly was grasped with Allis clamps. The fascia was transected Metzenbaum scissors. The preperitoneal fat was dissected bluntly the peritoneal cavity was entered bluntly. The fascial incision was extended laterally with Metzenbaum scissors. The fallopian tubes was palpated and dressed. It was brought to the abdominal incision. It was grasped with a Marilu clamp. This was in the ampullary region and a window was made in the broad ligament with cautery. The proximal distal ends of the skeletonized tube were ligated with Vicryl. Segment of ligated tube was resected with Metzenbaum scissors. The proximal distal ends of the tube were cauterized. When the tube was hemostatic that was lab to fall back into the abdomen. The tube on the contralateral side was ligated in identical fashion. The fascia was closed with an 0 Vicryl running fashion. Subcutaneous tissue was irrigated. Blood. The cauterized. Skin was closed subcuticular 4 Monocryl. It was covered with Dermabond. Sponge lap and needle counts were correct. The patient was taken the recovery room stable condition. Anesthesia: GETA Surgeon: Watson Theodore MD Estimated blood loss (mL): 2 Drains: No Packing: No Pathology: yes Complications: No immediate complications Condition: stable Disposition: floor Findings: Normal appearing maternal anatomy
--- NOTE | 2020-01-16 12:59 | PM.OBDSVD ---
DS: Discharge Diagnosis Discharge Diagnosis (1) Third trimester : Code(s): Z34.93 - Encounter for supervision of normal , unspecified, third trimester Status: Acute (2) Gestational diabetes mellitus (GDM): Code(s): O24.419 - Gestational diabetes mellitus in , unspecified control Status: Acute (3) Sterilization: Code(s): Z30.2 - Encounter for sterilization Status: Acute OB - DS: Summary OB Procedures : NST and Ultrasound OB Procedures Intrapartum: Spontaneous Vag Delivery OB Procedures: : P.P. tubal ligation Peripartum Data Delivery Method: Natural Vaginal Procedures: Procedures Operation Date: 01/16/20 12:30 Actual Procedures Side Surgeon p Post- Tubal Ligation Bilateral Watson Theodore MD complications: none Status at Discharge Functional status at discharge: independent ambulation Time Spent with Patient Time attestation: Total time spent providing and/or coordinating discharge services: Time spent: Less than 30 minutes DS: Data Data Completed and Pending Pending studies at discharge: Pending at discharge 01/14/20 20:16 Surgical [PTH] Routine 01/16/20 12:34 Surgical [PTH] Routine Labs on day of discharge: Labs from last 24 hours 01/14/20 10:52 RPR Non-reactive Discharge Plan Discharge Discharging Clinician: Watson Theodore Patient Disposition: Home, Self-Care Activity: pelvic rest Diet: regular Patient Instructions: Antibiotic Form Stand Alone Forms: General Discharge Information Follow-up/Referrals: Watson Theodore MD [Physician] - Discharge Medications: New hydrocodone-acetaminophen 5-325 mg tablet 1 - 2 tablet PO Q4H PRN (Reason: pain) Qty: 25 RF: 0 Discontinued diphenhydramine HCl [Benadryl] 25 mg Capsule 25 mg PO Q6H PRN (Reason: Nausea And Vomiting) RF: 0 omeprazole 20 mg Capsule,Delayed Release(Dr/Ec) 20 mg PO DAILY RF: 0 promethazine 25 mg Tablet 25 mg PO Q6H PRN (Reason: Nausea And Vomiting) Qty: 30 RF: 0 glyburide 5 mg Tablet 5 mg PO HS Qty: 30 RF: 0 Date of admission: 01/14/20 05:59 Primary Care Provider: PHYSICIAN,PLEATING MACHINE OPERATOR Admitting Provider: Watson Theodore Attending physician on admission: Watson Theodore
--- NOTE | 2020-01-16 14:22 | PC.NURSE ---
Patient received back from recovery per bed. Patient awake and alert, VSS, call light within reach.
[2020-01-16] MEDS: traMADol HCL 50 MG TABLET PO (15:15)
[2020-01-18 12:45] VITALS: BP 119/74; PULSE 86; RESP 18; TEMP 36.7; O2SAT 98
--- NOTE | 2020-02-08 11:39 | PM.IMHP ---
H&P: HPI History of Present Illness Date/Time: 02/08/20 11:39 Chief complaint: nausea/vomiting/diarrhea Narrative: Bridget Hendrix is a 24 year old female 2 para 1001 at 38 weeks who presented in labor. She is having regular painful contractions. She went on to deliver vaginally. It was uncomplicated delivery. She desires female sterilization. We agreed to perform tubal ligation. She understands the risks. The procedure was described to her in detail. Review of Systems Constitutional: Constitutional: Reports no additional constitutional complaints, Denies fatigue, Denies headache(s), Denies lethargy and Denies weakness Eyes: Eyes: Reports no additional eye complaints, Denies blurry vision and Denies photophobia ENT: Reports as per HPI, Denies headache(s) and Denies neck pain Cardiovascular: Cardiovascular: Denies chest pain, Denies diaphoresis, Denies leg edema, Denies palpitations and Denies dyspnea Respiratory: Respiratory: Denies hemoptysis, Denies dyspnea and Denies wheezing Gastrointestinal: Gastrointestinal: Denies abdominal pain, Denies melena, Denies bloating, Denies hematochezia, Denies nausea and Denies vomiting Genitourinary: Genitourinary: Reports no additional female genitourinary complaints Musculoskeletal: Musculoskeletal: Denies joint swelling, Denies neck pain, Denies numbness and Denies stiffness Neurologic: Denies Abnormal speech present, Denies confusion, Denies headache(s), Denies numbness and Denies weakness Psychiatric: Psychiatric: Denies anxiety, Denies confusion, Denies depression, Denies homicidal ideation and Denies suicidal ideation Endocrine: Endocrine: Denies fatigue and Denies palpitations Allergic/Immunologic: Allergic/Immunologic: Denies wheezing PMFSH Past Medical History Medical History Asthma Depression Migraine Surgical History Surgical History H/O inguinal hernia repair [place] teeth extracted Family History Family History Father Hypertension Mother Skin cancer Sibling Skin cancer Lung cancer Grandparent Asthma Social History Social History Smoking status: Never smoker Substance use: never Gender identity (if verbalized by the patient): Female Spiritual care concerns: No Meds Home Medications and Allergies Home Medications Medication Instructions Recorded Confirmed Type amoxicillin 875 mg PO Q12H #20 tablet 01/28/20 Rx tramadol mg 01/28/20 History Allergies Allergy/AdvReac Type Severity Reaction Status Date / Time metoclopramide [From Reglan] Allergy Muscle Verified 01/28/20 12:59 Spasms hydrocodone AdvReac Mild NAUSEA Verified 01/28/20 12:59 Exam Const: General: healthy appearing, comfortable and no acute distress; No confusion Orientation/consciousness: No confusion Eyes: Direct Ophthalmoscopy: No photophobia Resp: Auscultation: clear to auscultation bilaterally, no rales, no rhonchi and no wheezes Cardio: Rate: regular rate Heart sounds: no click, no murmurs and no rubs GI: Inspection: non-distended GI Palp: No abdominal tenderness Auscultation: normal bowel sounds Neuro: General: No confusion Speech: No Abnormal speech present Extrem: General: normal to inspection, no pedal edema and no calf tenderness Assessment and Plan Assessment and plan (1) Sterilization: Code(s): Z30.2 - Encounter for sterilization Status: Acute (2) Gestational diabetes mellitus (GDM): Code(s): O24.419 - Gestational diabetes mellitus in , unspecified control Status: Acute (3) Third trimester : Code(s): Z34.93 - Encounter for supervision of normal , unspecified, third trimester Status: Acute Additional Plan This p
== END 2020-01-16 19:40 | disposition home or self-care (01) | DRG 541 ==
LOC: ANHLDR 10:47 → ANHOB2 23:19
PROVIDERS: Advanced Practice Midwife; Admitting Provider Obstetrics & Gynecology; Visit Provider Obstetrics & Gynecology
PROC: 0UB70ZZ Excision of Bilateral Fallopian Tubes, Open Approach (ICD-10-PCS; CPT 58605; principal; 2020-01-16 12:30)
DX: O24.429 Gestational diabetes mellitus in childbirth, unspecified control (principal); Z30.2 Encounter for sterilization; O99.824 Streptococcus B carrier state complicating childbirth; O77.0 Labor and delivery complicated by meconium in amniotic fluid; O76 Abnormality in fetal heart rate and rhythm complicating labor and delivery; O69.1XX0 Labor and delivery complicated by cord around neck, with compression, not applicable or unspecified; Z3A.38 38 weeks gestation of pregnancy; Z37.0 Single live birth
CPT/HCPCS: 36415; 80053; 80307; 81001; 85014; 85018; 85025; 86592; 86850; 86900; 86901; 88302; 88307; A9270; J0290; J0330; J1100; J2250; J2405; J2590; J2704; J2795; J3010; J7120

== ENCOUNTER 2020-01-28 12:41 | Emergency (ER) | payer OTHER, SELFPAY ==
[2020-01-28 12:51] VITALS: BP 124/89; PULSE 90; RESP 16; TEMP 36.9; O2SAT 98
--- NOTE | 2020-01-28 12:56 | ED.URI ---
HPI - URI/Sore Throat General Chief Complaint: Upper Respiratory Infection Stated Complaint: sore throat Time Seen by Provider: 01/28/20 12:50 Source: patient Mode of arrival: ambulatory Limitations: no limitations History of Present Illness HPI Narrative: Bridget Hendrix is 24 yo female with a PMH of gestational diabetes, here with complaints of sore throat difficulty swallowing started yesterday. States she gets strep throat 2-3 times a year. Just had a baby 2 weeks ago had a tubal ligation the following Thursday. States that she was malnourished throughout the due to hyperemesis was in the emergency room x14. Related Data Home Medications Medication Instructions Recorded Confirmed tramadol mg 01/28/20 Allergies Allergy/AdvReac Type Severity Reaction Status Date / Time metoclopramide [From Reglan] Allergy Muscle Verified 01/28/20 12:59 Spasms hydrocodone AdvReac Mild NAUSEA Verified 01/28/20 12:59 Review of Systems Review of Systems: Narrative: CONSTITUTIONAL: Denies fever, chills, sweats. EYES: Denies visual changes, redness, discharge. ENT: Denies rhinorrhea, congestion, has sore throat, no otalgia. CARDIOVASCULAR: Denies chest pain, palpitations, edema. RESPIRATORY: Denies dyspnea, wheezing, cough GASTROINTESTINAL: Denies abdominal pain, nausea, vomiting, diarrhea. GENITOURINARY: Denies dysuria, hematuria, abnormal discharge SKIN: Denies rash or itching. NEUROLOGIC: Denies numbness, or focal weakness. PSYCHIATRIC: Denies anxiety or depression. PMF Past Medical History Medical History Asthma Depression Migraine Surgical History Surgical History H/O inguinal hernia repair [place] teeth extracted Family History Family History Father Hypertension Mother Skin cancer Sibling Skin cancer Lung cancer Grandparent Asthma Social History Social History Smoking status: Never smoker Substance use: never Gender identity (if verbalized by the patient): Female Spiritual care concerns: No Comments At time of signature, I agree with nursing past medical, surgical, social and family history. There is no relevant family history pertinent to the presenting complaint. Exam Narrative: Exam Narrative: GENERAL: This is a well-nourished, well-developed patient, in mild distress. HEAD: normocephalic, atraumatic. EYES: Sclera clear/white. Vision is grossly intact. EARS: External ears normal, auditory canals clear and without drainage, TMs normal without perforation. Hearing grossly intact. NOSE: External nose normal without nasal discharge, nares without redness, no rhinorrhea. THROAT: Mucous membranes moist, posterior pharynx erythema with exudate on right NECK: Neck supple, CARDIOVASCULAR: Regular rate and rhythm without murmurs, gallops, or rubs. RESPIRATORY: Clear to auscultation. Breath sounds equal bilaterally. No wheezes, rales, or rhonchi. GASTROINTESTINAL: Abdomen soft, SKIN: warm, intact with no suspicious lesions or rash, good texture and turgor. NEURO: awake, alert, and oriented to person, place and time. There were no obvious focal neurologic abnormalities. Steady gait EXTREMITIES: Normal range of motion. BACK: Nontender without deformity Course Course Emergency Course: Strep swab negative but sent for culture Started on amoxicillin 875 1 twice daily-patient is not breast-feeding, Follow-up with LICENSE AND PERMIT SPECIALIST/PCP Vital Signs Vital signs: Vital Signs Temperature 98.5 F 01/28/20 12:51 Pulse Rate 90 01/28/20 12:51 Respiratory Rate 16 01/28/20 12:51 Blood Pressure 124/89 01/28/20 12:51 Pulse Oximetry 98 01/28/20 12:51 Temperature 98.5 F 01/28/20 12:51 Pulse Rate 90 01/28/20 12:51 Respiratory Rate 16 01/28/20 12:51 Blo
== END 2020-01-28 13:09 | disposition home or self-care (01) ==
PROVIDERS: Emergency Provider Nurse Practitioner
DX: J02.9 Acute pharyngitis, unspecified (principal); J45.909 Unspecified asthma, uncomplicated
CPT/HCPCS: 87081; 87880; 99213; G0463

== ENCOUNTER 2020-12-07 21:20 | Emergency (ER) | payer OTHER, SELFPAY ==
[2020-12-07 21:36] VITALS: PULSE 82; RESP 16; TEMP 36.9; O2SAT 97
[2020-12-07 21:43] VITALS: PULSE 82; RESP 16; TEMP 36.9; O2SAT 97
--- NOTE | 2020-12-07 21:46 | ED.GENADULT ---
HPI - General Adult General Chief complaint: Unspecified Stated complaint: Abdominal pain-abdnormal bleeding Time Seen by Provider: 12/07/20 21:34 History of Present Illness HPI narrative: LLQ pain radiating to the pelvis for a few days. She also noted some abnormal vaginal discharge a few days ago. She thought she was starting her period yesterday, but now she is barely spotting. She has had a tubal ligation and is now concerned that she may have an ectopic pregnacy because her boyfriend is really fertile, really . Although she also has a h/o BV, so ith could be that, or it could be something else. Related Data Home Medications Medication Instructions Recorded Confirmed tramadol mg 01/28/20 Allergies Allergy/AdvReac Type Severity Reaction Status Date / Time metoclopramide [From Reglan] Allergy Muscle Verified 12/07/20 21:21 Spasms hydrocodone AdvReac Mild NAUSEA Verified 12/07/20 21:21 Review of Systems Review of Systems: All systems reviewed & are unremarkable except as noted in HPI and below Constitutional: Constitutional: Denies fever(s) Cardiovascular: Cardiovascular: Denies chest pain Respiratory: Respiratory: Denies dyspnea Gastrointestinal: Gastrointestinal: Reports as per HPI, Denies diarrhea and Denies vomiting Genitourinary: Genitourinary: Denies hematuria and Denies dysuria Musculoskeletal: Musculoskeletal: Denies back pain [facility] Past Medical History Medical History Asthma Depression Migraine Surgical History Surgical History H/O inguinal hernia repair [place] teeth extracted Family History Family History Father Hypertension Mother Skin cancer Sibling Skin cancer Lung cancer Grandparent Asthma Social History Social History Smoking status: Never smoker Substance use: never Gender identity (if verbalized by the patient): Female Spiritual care concerns: No Exam Const: General: healthy appearing, no acute distress and alert Orientation/consciousness: patient oriented x3 HENMT: Head: normal to inspection Neck: Neck: normal visual inspection Resp: Effort & Inspection: normal respiratory effort Auscultation: clear to auscultation bilaterally, no rales, no rhonchi and no wheezes Cardio: Jugular venous distension: no JVD Rate: regular rate Rhythm: regular rhythm Heart sounds: no murmurs GI: Inspection: non-distended GI Palp: Yes Soft to palpation and Yes Tenderness to palpation present (GI) (mild over left inguinal ligmaent) : Speculum Exam - Vagina: normal appearance of the vagina and vaginal bleeding (appears to be some discharge as well) Speculum Exam - Cervix: normal appearance of the cervix and nontender Skin: General skin exam: normal color Neuro: General: patient oriented x3 and moves all extremities Speech: normal speech Extrem: General: no edema Psych: Appearance: well kempt Affect: normal affect Course Vital Signs Vital signs: Vital Signs Temperature 36.9 C 12/07/20 21:36 Pulse Rate 82 12/07/20 21:36 Respiratory Rate 16 12/07/20 21:36 Pulse Oximetry 97 12/07/20 21:36 Temperature 36.9 C 12/07/20 21:43 Pulse Rate 82 12/07/20 21:43 Respiratory Rate 16 12/07/20 21:43 Pulse Oximetry 97 12/07/20 21:43 Medical Decision Making MDM Narrative Medical decision making narrative: She does appear to have some mild discharge, but difficult to be sure due to bleeding. If anything I suspect BV. I will start flagy and send swabs. Medical Records Medical records reviewed: Yes I reviewed the external patient's medical records. Vital Signs Vital Signs: Vital Signs Temperature 36.9 C 12/07/20 21:36 Pulse Rate 82 12/07/20 21:36 Respiratory Rate 16 12/07/20 21:36 Pulse Oximetry
[2020-12-07 22:00] LABS: Add Urine Microscopic? YES; Appearance Urine Clear (Clear); Bacteria Urine Trace /hpf; Bilirubin Urine Negative (Negative); Blood Urine 2+ (Negative); Color Urine Yellow (Yellow); Glucose Urine UA Negative (Negative); Ketones Urine Negative (Negative); Leukocyte Esterase Ur Negative LEU/UL (Negative); Mucus Urine Few /lpf; Nitrate Urine Negative (Negative); Protein Urine 1+ mg/dL (Negative); Specific Grav Ur 1.025 (1.001-1.035); Squamous Epithelial Cell Urine Many /hpf (Few); WBC Urine 0-3 /hpf
[2020-12-07 22:37] LABS: Basophils Absolute Auto 0.1 K/mm3 (0.0-0.1); Basophils Percent Auto 0.7 % (0.2-1.2); Eosinophils Absolute Auto 0.2 K/mm3 (0-0.3); Eosinophils Percent Auto 2.7 % (0-4.4); Hematocrit 39.9 % (37.0-47.0); Hemoglobin 13.4 g/dL (12.0-15.0); Immature Granulocyte Absolute 0.03 K/mm3 (0.00-0.031); Immature Granulocyte Percent A 0.4 % (0-0.5); Lymphocytes Absolute Auto 2.06 K/mm3 (0.9-3.2); Lymphocytes Percent Auto 29.1 % (18.3-44.2); Mean Corpuscular HGB Conc 33.6 g/dl (32-36); Mean Corpuscular Hemoglobin 31.1 pg (26-34); Mean Corpuscular Volume 92.6 fl (80-100); Mean Platelet Volume 11.2 fl (7.4-10.4); Monocytes Absolute Auto 0.6 K/mm3 (0.1-0.6); Monocytes Percent Auto 7.9 % (2.6-8.5); Neutrophils Absolute Auto 4.2 K/mm3 (1.3-6.7); Neutrophils Percent Auto 59.2 % (45.5-73.1); Platelet Count Result 214 k/mm3 (150-375); Red Blood Count 4.31 M/mm3 (4.2-5.4); Red Cell Distribution Width 12.7 % (11.5-14.5); White Blood Count 7.1 K/mm3 (4.5-10.0)
[2020-12-07 22:51] LABS: Alanine Aminotransferase 10 U/L (4-35); Albumin Level 4.2 g/dL (3.5-5.1); Alkaline Phosphatase 67 U/L (38-126); Anion Gap 7 mmol/L (8-16); Aspartate Amino Transferase 24 U/L (14-36); Bilirubin,Total 0.3 mg/dL (0.2-1.3); Blood Urea Nitrogen 10 mg/dL (7-17); Calcium 8.9 mg/dL (8.4-10.2); Carbon Dioxide 29 mmol/L (22-30); Chloride 104 mmol/L (98-107); Estimated CRCL calculation 83 ml/min; Estimated Glomerular Filt Rate > 60; Glucose 114 mg/dL (65-105); Potassium 3.6 mmol/L (3.4-5.0); Sodium 140 mmol/L (137-145)
[2020-12-07] MEDS: metroNIDAZOLE 250 MG TABLET 500 MG PO (23:36)
== END 2020-12-07 23:41 | disposition home or self-care (01) ==
PROVIDERS: Emergency Provider Emergency Medicine
DX: N89.8 Other specified noninflammatory disorders of vagina (principal); J45.909 Unspecified asthma, uncomplicated; F32.9 Major depressive disorder, single episode, unspecified
CPT/HCPCS: 36415; 80053; 81001; 81025; 85025; 87070; 87491; 87591; 87808; 99284; A9270

== ENCOUNTER 2021-01-17 13:46 | Emergency (ER) | payer OTHER, SELFPAY ==
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
[2021-01-17 13:55] VITALS: BP 131/87; PULSE 85; RESP 16; TEMP 37; O2SAT 99
[2021-01-17 14:04] VITALS: BP 131/87; PULSE 85; RESP 16; TEMP 37; O2SAT 99
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
[2021-01-17] MEDS: IBUPROFEN 600 MG TABLET PO (14:36)
== END 2021-01-17 15:00 | disposition home or self-care (01) ==
PROVIDERS: Emergency Provider Nurse Practitioner; PCP Internal Medicine Infectious Disease
DX: S69.92XA Unspecified injury of left wrist, hand and finger(s), initial encounter (principal); Y04.0XXA Assault by unarmed brawl or fight, initial encounter; J45.909 Unspecified asthma, uncomplicated
CPT/HCPCS: 73110; 73630; 99214; A9270; G0463

== ENCOUNTER 2021-11-28 11:40 | Outpatient (CLI) | payer OTHER, SELFPAY ==
[2021-11-28 12:12] LABS: Hematocrit 39.8 % (37.0-47.0); Hemoglobin 13.7 g/dL (12.0-15.0); Mean Corpuscular HGB Conc 34.4 g/dl (32-36); Mean Corpuscular Hemoglobin 32.4 pg (26-34); Mean Corpuscular Volume 94.1 fl (80-100); Mean Platelet Volume 11.1 fl (7.4-10.4); Platelet Count Result 204 k/mm3 (150-375); Red Blood Count 4.23 M/mm3 (4.2-5.4); Red Cell Distribution Width 13.1 % (11.5-14.5); White Blood Count 5.1 K/mm3 (4.5-10.0)
[2021-11-28 12:26] LABS: Alanine Aminotransferase 19 U/L (6-35); Albumin Level 4.1 g/dL (3.5-5.1); Alkaline Phosphatase 82 U/L (38-126); Anion Gap 3 mmol/L (8-16); Aspartate Amino Transferase 27 U/L (14-36); Bilirubin,Total 0.3 mg/dL (0.2-1.3); Blood Urea Nitrogen 11 mg/dL (7-17); Calcium 8.4 mg/dL (8.4-10.2); Carbon Dioxide 31 mmol/L (22-30); Chloride 104 mmol/L (98-107); Estimated Glomerular Filt Rate > 60; Glucose 93 mg/dL (65-110); Potassium 4.8 mmol/L (3.4-5.0); Sodium 138 mmol/L (137-145)
[2022-01-02 11:03] LABS: Gliadin AB, IgG <1.0 U/mL (<15.0); TTG IGA AB <1.0 U/mL (<15.0)
== END 2021-11-28 11:41 | disposition home or self-care (01) ==
PROVIDERS: Visit Provider Nurse Practitioner
DX: K52.9 Noninfective gastroenteritis and colitis, unspecified (principal); R07.89 Other chest pain; F12.10 Cannabis abuse, uncomplicated; E66.9 Obesity, unspecified; R10.31 Right lower quadrant pain; R10.32 Left lower quadrant pain; R11.0 Nausea
CPT/HCPCS: 36415; 80053; 83516; 84443; 85027; 86255

== ENCOUNTER 2022-03-04 00:19 | Day surgery (SDC) | payer OTHER, SELFPAY ==
[2022-01-06 14:32] VITALS: BMI 28.7
[2022-02-18 15:09] VITALS: BMI 28.7
--- NOTE | 2022-03-03 14:13 | P.PNAN_ITS ---
Anes - Initial Pre Proc Eval Procedure: Operation Date: 03/04/22 09:00 Proposed Procedures p Esophagogastroduodenoscopy & Colonoscopy - Baldo Quiñones MD Date/Time: 03/03/22 14:13 Surgeon: Baldo Quiñones MD Pre Op Diagnosis: nausea, diarrhea Patient Data Age: 26 Gender: F Height: 1.78 m Weight: 90.9 kg Allergies Allergy/AdvReac Type Severity Reaction Status Date / Time hydrocodone AdvReac Mild NAUSEA Verified 03/04/22 07:52 metoclopramide [From Reglan] AdvReac Mild Muscle Verified 03/04/22 07:52 Spasms Home Medications Medication Instructions Recorded Confirmed Type ibuprofen 600 mg tablet 600 mg PO QID PRN pain #30 tabs 01/17/21 02/18/22 Rx promethazine 25 mg tablet 25 mg PO TID PRN Nausea 01/17/21 02/18/22 History acetaminophen 325 mg tablet 325 mg PO Q6H PRN Pain 11/28/21 02/18/22 History (Tylenol) sodium sul 1.479 gram-potas ch See Rx Instructions PO PER PKG DIR 12/02/21 02/18/22 Rx 0.188 gram-magnes sul 0.225 gram #24 tabs tablet (Sutab) Patient hx anesthesia problems: none Family hx anesthesia problems: none Results Review: All pre-operative results and documents have been reviewed as part of the pre- operative evaluation. FORMERLY [facility], [facility] Past Medical History Medical History (Updated 11/28/21 @ 11:37 by Faby Chun, BIOMEDICAL SPECIALIST) Asthma Atypical chest pain Bilateral lower abdominal cramping Chronic diarrhea Depression Marijuana abuse Migraine Nausea Obesity Surgical History Surgical History H/O inguinal hernia repair [place] teeth extracted Family History Family History Father Hypertension Mother Skin cancer Sibling Skin cancer Lung cancer Grandparent Asthma Social History Social History Smoking status: Never smoker Substance use: current Substance use type: marijuana Last use: 01/06/22 Living arrangements: with family Gender identity (if verbalized by the patient): Female Spiritual care concerns: No Anes - Eval Final PreProcedure Day of Procedure 03/03/22 14:13 Patient weight: overweight Heart: regular rate and rhythm Lungs: clear to auscultation Airway: Mallampati scale class II Neurological: alert and oriented Last oral intake: >/= 8 hours ASA classification: II Emergent: no Anesthetic plan: proceed Anesthesia type and monitoring: general GIVS and standard monitoring Results Review: All pre-operative results and documents have been reviewed as part of the pre- operative evaluation. Informed Consent: The patient's anesthetic plan and its attendant risks and benefits were discussed with the patient/family/POA. Questions were solicited and answers provided to the satisfaction of the patient/family/POA.
[2022-03-04 07:40] VITALS: BP 118/76; PULSE 69; RESP 18; TEMP 36.3; O2SAT 98; BMI 27.3
[2022-03-04] MEDS: LACTATED RINGERS 1,000 ML 150 ML IV CONT (08:00)
--- NOTE | 2022-03-04 08:47 | PM.HPGS ---
History of Present Illness History of Present Illness Consent: Risks, benefits, and alternatives have been discussed and questions answered. Patient agrees to proceed with procedure. Chief complaint: nausea, diarrhea Narrative: Bridget Hendrix is a 26 year old female with nausea and bloating as main problem since she had her child (she was also in the hospital multiple times because hyperemesis gravidarum), occasionally loose stools Review of Systems Constitutional: Constitutional: Denies headache(s) and Denies weakness Eyes: Eyes: Denies blurry vision ENT: Reports Normal hearing present, Denies headache(s) and Denies neck pain Cardiovascular: Cardiovascular: Denies chest pain and Denies dyspnea Respiratory: Respiratory: Denies dyspnea Gastrointestinal: Gastrointestinal: Reports no additional gastrointestinal complaints Genitourinary: Genitourinary: Denies dysuria Musculoskeletal: Musculoskeletal: Denies neck pain Integumentary/Breasts: Skin/Breast: Denies dry skin Neurologic: Reports Normal hearing present, Denies headache(s) and Denies weakness Psychiatric: Psychiatric: Denies anxiety Endocrine: Endocrine: Denies change in body appearance Hematologic/Lymphatic: Hematologic/Lymphatic: Denies easy bleeding Allergic/Immunologic: Allergic/Immunologic: Denies urticaria PMFSH Past Medical History Medical History (Updated 11/28/21 @ 11:37 by Faby Chun, YOAN) Asthma Atypical chest pain Bilateral lower abdominal cramping Chronic diarrhea Depression Marijuana abuse Migraine Nausea Obesity Surgical History Surgical History H/O inguinal hernia repair [place] teeth extracted Family History Family History Father Hypertension Mother Skin cancer Sibling Skin cancer Lung cancer Grandparent Asthma Social History Social History Smoking status: Never smoker Substance use: current Substance use type: marijuana Last use: 01/06/22 Living arrangements: with family Gender identity (if verbalized by the patient): Female Spiritual care concerns: No Meds Home Medications and Allergies Home Medications Medication Instructions Recorded Confirmed Type ibuprofen 600 mg tablet 600 mg PO QID PRN pain #30 tabs 01/17/21 02/18/22 Rx promethazine 25 mg tablet 25 mg PO TID PRN Nausea 01/17/21 02/18/22 History acetaminophen 325 mg tablet 325 mg PO Q6H PRN Pain 11/28/21 02/18/22 History (Tylenol) sodium sul 1.479 gram-potas ch See Rx Instructions PO PER PKG DIR 12/02/21 02/18/22 Rx 0.188 gram-magnes sul 0.225 gram #24 tabs tablet (Sutab) Allergies Allergy/AdvReac Type Severity Reaction Status Date / Time hydrocodone AdvReac Mild NAUSEA Verified 03/04/22 07:52 metoclopramide [From Reglan] AdvReac Mild Muscle Verified 03/04/22 07:52 Spasms Vital Signs Vital Signs - 24 hr 03/04/22 07:40 Temperature 97.3 F L Pulse Rate 69 Respiratory Rate 18 Blood Pressure 118/76 Pulse Oximetry 98 Oxygen Delivery Room Air Exam Const: General: comfortable and no acute distress HENMT: General nose exam: Normal nares present Eyes: General: appearance normal, both eyes and all related structures Neck: Neck: no JVD Resp: Auscultation: clear to auscultation bilaterally Cardio: Rate: regular rate Rhythm: regular rhythm GI: Inspection: non-distended GI Palp: Yes Soft to palpation Skin: General skin exam: normal color Neuro: General: gait normal Speech: normal speech Extrem: General: normal to inspection Psych: Mental Status: mental status grossly normal Assessment and Plan Assessment and plan (1) Nausea: Code(s): R11.0 - Nausea Status: Acute Assessment and Plan: egd with bx serology negative for celiac (2) Chronic diarrhea: Code(s): K52.9 - Noninfecti
[2022-03-04 09:33] VITALS: BP 95/60; PULSE 78; RESP 27; O2SAT 100
--- NOTE | 2022-03-04 09:39 | SUR.OPER ---
EGD START: 856; END: 904. COLONOSCOPY START: 917; END: 928.
[2022-03-04 09:43] VITALS: BP 129/79; PULSE 91; RESP 24; O2SAT 99
[2022-03-04 09:53] VITALS: BP 108/80; PULSE 76; RESP 18; O2SAT 96
== END 2022-03-04 10:04 | disposition home or self-care (01) ==
PROVIDERS: Visit Provider Internal Medicine Gastroenterology
PROC: 0DJ08ZZ Inspection of Upper Intestinal Tract, Via Natural or Artificial Opening Endoscopic (ICD-10-PCS; CPT 43235; principal; 2022-03-04 09:00)
DX: R19.7 Diarrhea, unspecified (principal); K58.9 Irritable bowel syndrome, unspecified; K64.8 Other hemorrhoids; R11.0 Nausea; R14.0 Abdominal distension (gaseous); F32.A Depression, unspecified; J45.909 Unspecified asthma, uncomplicated; F12.90 Cannabis use, unspecified, uncomplicated
CPT/HCPCS: 45380; 43239; 88305; J2704; J3010; J7120

== ENCOUNTER 2022-05-06 17:05 | Emergency (ER) | payer OTHER, SELFPAY ==
--- NOTE | ~2022-05-06 | XR_ITS ---
XR foot RT min 3V DATE: 05/06/2022 17:46 INDICATION: Kicked a door on 05/06/2022. Generalized ankle and foot pain TECHNIQUE: 4 views COMPARISON: None FINDINGS: Mild posterior calcaneal enthesopathy. No fracture or dislocation, periosteal reaction or bone destruction. Joint spaces are preserved. No e rosive change. IMPRESSION: Mild posterior calcaneal enthesopathy No fracture or dislocation Reviewed, dictated and finalized at location A. UTER SYSTEMS ADMINISTRATOR
--- NOTE | ~2022-05-06 | XR_ITS ---
XR ankle RT min 3V DATE: 05/06/2022 17:46 INDICATION: Kicked a door on 05/06/2022. Generalized ankle and foot pain TECHNIQUE: 4 views of right ankle COMPARISON: None FINDINGS: No soft tissue swelling, fracture or dislocation of the ankle or disruption of the ankle mo rtise. No periosteal reaction or bone destruction. Mild posterior calcaneal enthesopathy. IMPRESSION: No fracture or dislocation of the ankle Reviewed, dictated and finalized at location A. UME SHOP MANAGER
[2022-05-06 17:16] VITALS: BP 116/74; PULSE 78; RESP 16; TEMP 36.7; O2SAT 100
--- NOTE | 2022-05-06 17:39 | ED.LOWEXIN ---
HPI - Extremity Injury (Lower) General Chief Complaint: Extremity Injury, Lower Stated Complaint: Right Ankle Injury Time Seen by Provider: 05/06/22 18:26 Source: patient and RN notes reviewed Mode of arrival: ambulatory Limitations: no limitations History of Present Illness HPI Narrative: 26-year-old female presents concern for ankle injury. Reports she kicked a door with her flatfoot this afternoon causing pain to her lateral foot and ankle. She reports pain with weight-bearing, she has been using crutches. She reports pain with flexing the foot or moving the toes. She reports pain that occasionally shoots up the leg. MD complaint: ankle injury Related Data Home Medications Medication Instructions Recorded Confirmed metformin 500 mg tablet 500 mg DAILY 05/06/22 05/06/22 Allergies Allergy/AdvReac Type Severity Reaction Status Date / Time hydrocodone AdvReac Mild NAUSEA Verified 05/06/22 17:57 metoclopramide [From Reglan] AdvReac Mild Muscle Verified 05/06/22 17:57 Spasms diazepam [From Valium] AdvReac Other Verified 05/06/22 17:57 Review of Systems Review of Systems: CONSTITUTIONAL: Denies malaise, chills, sweats, or fever. SKIN: Denies rash or itching, open skin, laceration, abrasion, redness, warmth, swelling. MUSCULOSKELETAL: Reports right ankle and foot pain NEUROLOGIC: Denies numbness, weakness All systems reviewed & are unremarkable except as noted in HPI and below PMFSH Past Medical History Medical History (Updated 05/06/22 @ 18:24 by Mya Alberto NP) Asthma Atypical chest pain Bilateral lower abdominal cramping Chronic diarrhea Depression Marijuana abuse Migraine Nausea Obesity Surgical History Surgical History H/O inguinal hernia repair [place] teeth extracted Family History Family History Father Hypertension Mother Skin cancer Sibling Skin cancer Lung cancer Grandparent Asthma Social History Social History Smoking status: Never smoker Substance use: current Substance use type: marijuana Last use: 01/06/22 Gender identity (if verbalized by the patient): Female Spiritual care concerns: No Comments At time of signature, agree with nursing past medical, surgical, social and family history. There is no relevant family history pertinent to the presenting complaint Exam Narrative: GENERAL: Well-appearing, well-nourished, and in no acute distress. HEAD: Normocephalic, atraumatic. EYES: PERRLA, conjunctivae clear NECK: Supple. CHEST: Speaks in full sentences. No respiratory distress. HEART: Regular rate and rhythm. Normal and equal peripheral pulses. EXTREMITIES: Right ankle, foot, digits have normal sensation, limited range of motion. No edema or ecchymosis. 5/5 strength with digit flexion. Normal sensation with sensitivity to light touch and pain. Lateral ankle tenderness. No open wounds, no skin tenting, no devitalized tissue or atrophy, no trophic changes, no obvious deformity, alignment normal, nearby joints and structures intact. Distal pulses palpable and equal bilaterally, skin warm, dry, pink. Capillary refill less than 3 seconds. SKIN: Warm, dry, no rash. NEURO: Alert and oriented x3. PSYCH: Normal mood and affect Course Course Emergency Course: Patient is aware of diagnosis, understands and agrees to treatment plan. Anticipatory guidance given. Patient agrees to follow-up as directed and is aware of reasons to seek care at the emergency department. Portions of this record may have been created with voice recognition software Level of Care: Express Care Visit Vital Signs Vital signs: Vital Signs Temperature 98.0 F 05/06/22 17:16 Pulse Rate 78 05/06/22 17:16 Respiratory Rate 16 05/06/22 17:16 Blood Pressure 116/74 05/06/22 17:16 Pulse Oximetry 100 05/06/22
== END 2022-05-06 18:38 | disposition home or self-care (01) ==
PROVIDERS: Emergency Provider Nurse Practitioner; PCP Internal Medicine
DX: S93.401A Sprain of unspecified ligament of right ankle, initial encounter (principal); J45.909 Unspecified asthma, uncomplicated; W22.09XA Striking against other stationary object, initial encounter
CPT/HCPCS: 73610; 73630; 99213; G0463

== ENCOUNTER 2022-08-13 16:32 | Emergency (ER) | payer OTHER, SELFPAY ==
--- NOTE | ~2022-08-13 | XR_ITS ---
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 RESULT: Lines, tubes, and devices: None. Lungs and pleura: Antilordotic compared positioning of the frontal view. Low lung volumes with crowd ing. Cardiomediastinal silhouette: Unremarkable. Other: No acute osseous or upper abdominal finding. IMPRESSION: No acute cardiopulmonary process. Reviewed, dictated and finalized at location K. S AND MARKETING MANAGER
[2022-08-13 16:56] VITALS: BP 113/74; PULSE 73; RESP 17; TEMP 36.4; O2SAT 100
--- NOTE | 2022-08-13 17:09 | ED.NAVMDI ---
HPI - Nausea/Vomiting/Diarrhea General Chief complaint: Nausea/Vomiting/Diarrhea Stated complaint: N/V Time Seen by Provider: 08/13/22 17:01 History of Present Illness HPI Narrative: Patient is a 27-year-old female with a history of IBS here with her partner for evaluation of nausea vomiting and diarrhea over the past 6 hours. Patient states that she was in her usual state of health this morning. She started to feel unwell after eating fried chicken and mashed potatoes from [facility]. States that since then she has been unable to tolerate any p.o. and has had numerous episodes of vomiting nonbloody/nonbilious emesis and nonbloody diarrhea. She denies any abdominal pain. She states that her symptoms are making her very anxious and she feels short of breath with chest pressure in the center of her chest. 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 Has had a colonoscopy and EGD in 2021 that were unrevealing aside from hiatal hernia and several hemorrhoids. She was given Zofran in the ambulance with relief of her nausea. She is status post tubal ligation and therefore denies chance of . Related Data Home Medications Medication Instructions Recorded Confirmed metformin 500 mg tablet 500 mg DAILY 05/06/22 05/21/22 escitalopram oxalate 10 mg tablet mg 08/13/22 ondansetron HCl 4 mg tablet mg 08/13/22 Allergies Allergy/AdvReac Type Severity Reaction Status Date / Time hydrocodone AdvReac Mild NAUSEA Verified 08/13/22 16:35 metoclopramide [From Reglan] AdvReac Mild Muscle Verified 08/13/22 16:35 Spasms diazepam [From Valium] AdvReac Other Verified 08/13/22 16:35 Review of Systems Review of Systems: Gen.: Denies fevers or chills Eyes: Denies eye pain or visual change ENT: Denies congestion Respiratory: Reports shortness of breath CV: Denies chest pain or palpitations GI: Reports nausea, vomiting, diarrhea. denies burning, urgency, frequency or hematuria Musculoskeletal: Denies back pain or muscle pain Neuro: Denies numbness, tingling, weakness or focal weakness Skin: Denies rash Except as documented, all other systems reviewed and negative PMFSH Past Medical History Medical History Asthma Atypical chest pain Bilateral lower abdominal cramping Chronic diarrhea Depression Family history of colorectal cancer Internal hemorrhoid Marijuana abuse Migraine Nausea Obesity Surgical History Surgical History H/O inguinal hernia repair [place] teeth extracted Family History Family History Father Hypertension Mother Skin cancer Sibling Skin cancer Lung cancer Grandparent Asthma Social History Social History Smoking status: Never smoker Substance use: current Substance use type: marijuana Last use: 01/06/22 Living arrangements: with family Gender identity (if verbalized by the patient): Female Spiritual care concerns: No Exam Narrative: APPEARANCE: Ill-appearing, slumped over in wheelchair with emesis bag in hand Head: Normocephalic and atraumatic. EYES: PERRLA/EOMI, conjunctivae clear NOSE: No nasal drainage EARS: External ear normal in appearance THROAT: Oropharynx is clear. Mucous membranes are moist. NECK: Supple. No adenopathy, no masses. RESPIRATORY: Airway patent, respirations nonlabored. Clear to auscultation bilaterally, no rales, rhonchi, wheezing. CARDIOVASCULAR: Regular rate and rhythm without murmurs, rubs, or gallops. ABDOMINAL: Normoactive bowel sounds. Soft, nontender, nondistended. No rebound tenderness or guarding. MUSCULOSKELETAL: Extremities are warm and well-perfused. Moves all extremities well. No edema. NEURO: Normal speech. No focal neurologic deficits. SKIN: Skin is warm and dry. No rashes. PSYCHIATRIC: Normal affect/mood. Cour
[2022-08-13] MEDS: SODIUM CHLORIDE 0.9% IV 1,000 ML 999 ML IV CONT ×2 (17:21→18:50)
[2022-08-13] MEDS: FAMOTIDINE 20 MG/2 ML VIAL IV PUSH (17:22)
[2022-08-13 17:30] LABS: Basophils Absolute Auto 0.1 K/mm3 (0.0-0.1); Basophils Percent Auto 0.4 % (0.2-1.2); Eosinophils Percent Auto 0.4 % (0-4.4); Hematocrit 37.4 % (37.0-47.0); Hemoglobin 12.9 g/dL (12.0-15.0); Immature Granulocyte Absolute 0.05 K/mm3 (0.00-0.031); Immature Granulocyte Percent A 0.4 % (0-0.5); Lymphocytes Absolute Auto 1.01 K/mm3 (0.9-3.2); Mean Corpuscular HGB Conc 34.5 g/dl (32-36); Mean Corpuscular Hemoglobin 32.3 pg (26-34); Mean Corpuscular Volume 93.5 fl (80-100); Mean Platelet Volume 11.3 fl (7.4-10.4); Monocytes Absolute Auto 0.4 K/mm3 (0.1-0.6); Monocytes Percent Auto 3.3 % (2.6-8.5); Neutrophils Absolute Auto 9.7 K/mm3 (1.3-6.7); Neutrophils Percent Auto 86.5 % (45.5-73.1); Platelet Count Result 220 k/mm3 (150-375); Red Cell Distribution Width 13.1 % (11.5-14.5); White Blood Count 11.3 K/mm3 (4.5-10.0)
[2022-08-13] MEDS: diphenhydrAMINE HCl INJ 50 MG/ML VIAL 25 MG IV PUSH (17:35)
[2022-08-13 17:49] LABS: Alanine Aminotransferase 23 U/L (6-35); Albumin Level 4.6 g/dL (3.5-5.1); Alkaline Phosphatase 90 U/L (38-126); Anion Gap 7 mmol/L (8-16); Aspartate Amino Transferase 31 U/L (14-36); Bilirubin,Total 0.5 mg/dL (0.2-1.3); Blood Urea Nitrogen 8 mg/dL (7-17); Calcium 8.5 mg/dL (8.4-10.2); Carbon Dioxide 27 mmol/L (22-30); Chloride 101 mmol/L (98-107); Estimated CRCL calculation 97 ml/min; Estimated Glomerular Filt Rate > 60; Glucose 128 mg/dL (65-110); Lipase 49 U/L (23-300); Potassium 3.5 mmol/L (3.4-5.0); Sodium 135 mmol/L (137-145)
[2022-08-13] MEDS: PROMETHAZINE HCL 25 MG/ML AMPUL 12.5 MG IM (17:52)
[2022-08-13 18:35] VITALS: BP 105/72; PULSE 72; RESP 18; O2SAT 99
--- NOTE | 2022-08-13 19:34 | ECG_ITS ---
Measurements Intervals [place] Rate: 68 P: 47 CA: 155 QRS: 101 QRSD: 94 T: -84 QT: 395 QTc: 421 Interpretive Statements SINUS RHYTHM RIGHT AXIS DEVIATION [QRS AXIS > 100] MODERATE T-WAVE ABNORMALITY, CONSIDER ANTEROLATERAL ISCHEMIA [-0.1+ mV T-WAVE IN V3-V6] ABNORMAL ECG COMPARED TO ECG 08/07/2019 18:31:22 NO SIGNIFICANT CHANGES Electronically Signed On 08-14-2022 10:07:45 TOOL TENDER by Frank Donovan M.D.
[2022-08-13 20:08] LABS: Appearance Urine Clear (Clear); Bilirubin Urine Negative (Negative); Blood Urine Negative (Negative); Color Urine Yellow (Yellow); Glucose Urine UA Negative (Negative); Ketones Urine 2+ mg/dL (Negative); Leukocyte Esterase Ur Negative LEU/UL (Negative); Nitrate Urine Negative (Negative); Protein Urine Negative (Negative)
[2022-08-13 20:11] LABS: Add Urine Microscopic? YES; Bacteria Urine Trace /hpf; Mucus Urine Rare /lpf; Squamous Epithelial Cell Urine Few /hpf (Few); WBC Urine 0-3 /hpf
[2022-08-13 20:13] LABS: Troponin I < 0.012 ng/mL (0.000-0.034)
[2022-08-13] MEDS: BELLADONNA ALK/PHENOB ELIX 10 ML, MAG HYDROX/ALUMINUM HYD/SIMETH 30 ML, LIDOCAINE HCL 2... PO (21:27)
[2022-08-13 22:06] LABS: Troponin I < 0.012 ng/mL (0.000-0.034)
== END 2022-08-13 22:51 | disposition home or self-care (01) ==
PROVIDERS: Emergency Medicine; Emergency Provider Physician Assistant; PCP Internal Medicine
DX: K52.9 Noninfective gastroenteritis and colitis, unspecified (principal); J45.909 Unspecified asthma, uncomplicated; F32.9 Major depressive disorder, single episode, unspecified
CPT/HCPCS: 36415; 71046; 80053; 81001; 81025; 83690; 84484; 85025; 93005; 96361; 96365; 96372; 96375; 99284; A9270; J0131; J1200; J2550; J7030

== ENCOUNTER 2022-09-08 15:55 | Emergency (ER) | payer OTHER, SELFPAY ==
[2022-09-08] VITALS (7 sets, daily range): BP systolic 101–131; BP diastolic 68–81; PULSE 63–91; RESP 16–18; TEMP 37.4–37.8; O2SAT 96–99
--- NOTE | ~2022-09-08 | CT_ITS ---
EXAMINATION: CT abdomen pelvis w con DATE: 09/08/2022 18:49 INDICATION: lower ABD pain, N/V TECHNIQUE: Computed tomography (CT) of the abdomen and pelvis was performed with 100 mL Omnipaque-350 intravenous contrast. Automated exposure control and iterative reconstruction technique were employe d. The dose-length product was 360.17 mGy-cm. COMPARISON: None. FINDINGS: Lower thorax: Dependent atelectasis. Liver: Normal. Biliary/Gallbladder: Gallbladder is normal. No bile duct dilation. Pancreas: No mass or duct dilation. Spleen: Normal. Adrenals:No mass. Kidneys: No mass, stone, or hydronephrosis. GI tract: No small or large bowel dilation. Normal appendix. Mesentery/Peritoneum: No ascites, mass, or free air. Retroperitoneum: No mass. Pelvis: Pelvic organs are within normal limits. Soft Tissues: Soft tissues and body wall unremarkable. Bones: No acute osseous finding. IMPRESSION: No acute abdominopelvic process detected. Reviewed, dictated and finalized at location K.
[2022-09-08 16:45] LABS: Basophils Percent Auto 0.7 % (0.2-1.2); Eosinophils Percent Auto 0.4 % (0-4.4); Hematocrit 37.1 % (37.0-47.0); Hemoglobin 12.4 g/dL (12.0-15.0); Immature Granulocyte Absolute 0.02 K/mm3 (0.00-0.031); Immature Granulocyte Percent A 0.4 % (0-0.5); Lymphocytes Absolute Auto 0.18 K/mm3 (0.9-3.2); Mean Corpuscular HGB Conc 33.4 g/dl (32-36); Mean Corpuscular Hemoglobin 32.3 pg (26-34); Mean Corpuscular Volume 96.6 fl (80-100); Mean Platelet Volume 11.4 fl (7.4-10.4); Monocytes Absolute Auto 0.4 K/mm3 (0.1-0.6); Monocytes Percent Auto 8.8 % (2.6-8.5); Neutrophils Absolute Auto 3.8 K/mm3 (1.3-6.7); Neutrophils Percent Auto 85.7 % (45.5-73.1); Platelet Count Result 171 k/mm3 (150-375); Red Blood Count 3.84 M/mm3 (4.2-5.4); Red Cell Distribution Width 13.2 % (11.5-14.5); White Blood Count 4.5 K/mm3 (4.5-10.0)
[2022-09-08 16:55] LABS: Alanine Aminotransferase 27 U/L (6-35); Albumin Level 4.4 g/dL (3.5-5.1); Alkaline Phosphatase 78 U/L (38-126); Anion Gap 7 mmol/L (8-16); Aspartate Amino Transferase 25 U/L (14-36); Bilirubin,Total 0.5 mg/dL (0.2-1.3); Blood Urea Nitrogen 6 mg/dL (7-17); Calcium 8.8 mg/dL (8.4-10.2); Carbon Dioxide 28 mmol/L (22-30); Chloride 102 mmol/L (98-107); Estimated CRCL calculation 100 ml/min; Estimated Glomerular Filt Rate > 60; Glucose 91 mg/dL (65-110); Lipase 25 U/L (23-300); Potassium 3.9 mmol/L (3.4-5.0); Sodium 137 mmol/L (137-145)
[2022-09-08 17:37] LABS: Appearance Urine Clear (Clear); Bacteria Urine None Seen /hpf; Bilirubin Urine Negative (Negative); Blood Urine Negative (Negative); Color Urine Yellow (Yellow); Glucose Urine UA Negative (Negative); Ketones Urine 4+ mg/dL (Negative); Leukocyte Esterase Ur Negative LEU/UL (Negative); Need Manual Microscopic Reviewed; Nitrate Urine Negative (Negative); Non Pathogenic Casts 0-2; Protein Urine Trace mg/dL (Negative); Specific Grav Ur 1.024 (1.001-1.035); Squamous Epithelial Cell Urine Occasional /hpf (Few); WBC Urine 0-5 /hpf
[2022-09-08 17:53] LABS: Add Urine Microscopic? YES
--- NOTE | 2022-09-08 18:24 | ED.NAVMDI ---
HPI - Nausea/Vomiting/Diarrhea General Chief complaint: Nausea/Vomiting/Diarrhea <SANDRA Santos Last Filed: 09/09/22 03:33> Stated complaint: dehydrated, n/v <Nadeen John PA-C - Last Filed: 09/09/22 03:33> Time Seen by Provider: 09/08/22 18:10 <SANDRA Santos Last Filed: 09/09/22 03:33> Source: patient and old records reviewed <SANDRA Santos Last Filed: 09/09/22 03:33> Mode of arrival: ambulatory <SANDRA Santos Last Filed: 09/09/22 03:33> Limitations: no limitations <SANDRA Santos Last Filed: 09/09/22 03:33> History of Present Illness HPI Narrative: Patient is a 27-year-old female who presents the ED with report of nausea, vomiting. Patient reports she began feeling ill this morning and developed nausea and vomiting. She states she has had numerous episodes of NB/NB emesis since then has been unable to keep down any food or drink. She expresses concern that she is dehydrated. She states other family members have had similar symptoms/N/V. She also reports subjective fevers, chills, diaphoresis, lower abdominal pain, muscle spasms, headache, and lower back pain for the last few days. Patient denies any diarrhea, constipation, urinary symptoms, cough, cold symptoms. Patient has not taken anything for pain today as she has been unable to keep anything down. She does report a history of hyperemesis in . She was seen in the ED recently for gastroenteritis as well. Patient does smoke marijuana. <SANDRA Santos Last Filed: 09/09/22 03:33> Related Data Home medications: Home Medications Medication Instructions Recorded Confirmed metformin 500 mg tablet 500 mg DAILY 05/06/22 05/21/22 escitalopram oxalate 10 mg tablet mg 08/13/22 ondansetron HCl 4 mg tablet mg 08/13/22 <SANDRA Santos Last Filed: 09/09/22 03:33> Allergies/Adverse reactions: Allergies Allergy/AdvReac Type Severity Reaction Status Date / Time prochlorperazine Allergy Other Verified 09/08/22 18:37 [From Compazine] hydrocodone AdvReac Mild NAUSEA Verified 09/08/22 18:37 metoclopramide [From Reglan] AdvReac Mild Muscle Verified 09/08/22 18:37 Spasms diazepam [From Valium] AdvReac Other Verified 09/08/22 18:37 <Nadeen John PA-C - Last Filed: 09/09/22 03:33> Review of Systems Review of Systems: CONSTITUTIONAL: See HPI. ENT: Denies rhinorrhea, congestion, sore throat. CARDIOVASCULAR: Denies chest pain, palpitations, or edema. RESPIRATORY: Denies cough or dyspnea. GASTROINTESTINAL: See HPI. GENITOURINARY: Denies dysuria or hematuria. SKIN: Denies rash or itching. MUSCULOSKELETAL: See HPI. NEUROLOGIC: See HPI. <Nadeen John PA-C - Last Filed: 09/09/22 03:33> All systems reviewed & are unremarkable except as noted in HPI and below <Nadeen John PA-C - Last Filed: 09/09/22 03:33> PMF Past Medical History Medical History: Medical History Asthma Atypical chest pain Bilateral lower abdominal cramping Chronic diarrhea Depression Family history of colorectal cancer Internal hemorrhoid Marijuana abuse Migraine Nausea Obesity <Nadeen John PA-C - Last Filed: 09/09/22 03:33> Surgical History Surgical History: Surgical History H/O inguinal hernia repair [place] teeth extracted <Nadeen John PA-C - Last Filed: 09/09/22 03:33> Family History Family History: Family History Father Hypertension Mother Skin cancer Sibling Skin cancer Lung cancer Grandparent Asthma <Nadeen John PA-C - Last Filed: 09/09/22 03:33> Social History Social History: Social History (Reviewed 09/09/22 @ 03:30 by Allie Santos
[2022-09-08 18:36] LABS: Magnesium 1.4 mg/dL (1.6-2.3)
[2022-09-08] MEDS: PANTOPRAZOLE SODIUM IV 40 MG VIAL IV PUSH (18:39)
[2022-09-08] MEDS: SODIUM CHLORIDE 0.9% IV 1,000 ML 999 ML IV CONT ×2 (18:40→21:19)
[2022-09-08] MEDS: ONDANSETRON INJ 4 MG/2 ML VIAL IV PUSH (18:40)
[2022-09-08] MEDS: MAGNESIUM SULF 2 GM/WATER 50ML 2 GM/50 ML BAG IVPB (18:55)
[2022-09-08 19:10] LABS: Influenza A QL RT-PCR Negative (Negative); Influenza B QL RT-PCR Negative (Negative); SARS-CoV-2 RNA PCR Positive
[2022-09-08] MEDS: KETOROLAC 30 MG/ML VIAL (*BKC) IV PUSH (23:09)
== END 2022-09-08 23:15 | disposition home or self-care (01) ==
PROVIDERS: Emergency Medicine; Emergency Provider Physician Assistant; PCP Internal Medicine
DX: U07.1 COVID-19 (principal); E86.0 Dehydration; E83.42 Hypomagnesemia; R11.2 Nausea with vomiting, unspecified; J45.909 Unspecified asthma, uncomplicated; E66.9 Obesity, unspecified; Z68.23 Body mass index [BMI] 23.0-23.9, adult; F32.A Depression, unspecified; Z79.85 Long-term (current) use of injectable non-insulin antidiabetic drugs
CPT/HCPCS: 36415; 74177; 80053; 81001; 81025; 83690; 83735; 85025; 87636; 96361; 96365; 96367; 96375; 99284; C9113; J0131; J1885; J2405; J3475; J7030; Q9967

== ENCOUNTER 2023-02-02 10:25 | Emergency (ER) | payer OTHER, SELFPAY ==
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
[2023-02-02 10:33] VITALS: BP 105/74; PULSE 60; RESP 16; TEMP 36.2; O2SAT 100
--- NOTE | 2023-02-02 12:15 | ED.GENADULT ---
HPI - General Adult General Chief complaint: Head Injury Stated complaint: head injury x 1 week ago Time Seen by Provider: 02/02/23 10:41 Source: patient Mode of arrival: ambulatory Limitations: no limitations History of Present Illness HPI narrative: This is a 27-year-old female who presents to the ED with chief complaint of neck pain following an injury that happened 1 week ago. She reports that she was at work at the back of her head on a wooden 2 x 4. She states she became a little fuzzy at the time but did not have any syncopal event. She now has pain in the right side of the neck that is worsened with movements and certain positions. Denies nausea, vomiting, dizziness, numbness, weakness. Denies any further site of pain or injury. Related Data Home Medications Medication Instructions Recorded Confirmed metformin 500 mg tablet 500 mg DAILY 05/06/22 05/21/22 escitalopram oxalate 10 mg tablet mg 08/13/22 ondansetron HCl 4 mg tablet mg 08/13/22 Allergies Allergy/AdvReac Type Severity Reaction Status Date / Time prochlorperazine Allergy Other Verified 02/02/23 10:25 [From Compazine] hydrocodone AdvReac Mild NAUSEA Verified 02/02/23 10:25 metoclopramide [From Reglan] AdvReac Mild Muscle Verified 02/02/23 10:25 Spasms diazepam [From Valium] AdvReac Other Verified 02/02/23 10:25 Review of Systems Review of Systems: All systems as dictated in HPI PMFSH Past Medical History Medical History Asthma Atypical chest pain Bilateral lower abdominal cramping Chronic diarrhea Depression Family history of colorectal cancer Internal hemorrhoid Marijuana abuse Migraine Nausea Obesity Surgical History Surgical History H/O inguinal hernia repair [place] teeth extracted Family History Family History Father Hypertension Mother Skin cancer Sibling Skin cancer Lung cancer Grandparent Asthma Social History Social History Smoking status: Never smoker Substance use: current Substance use type: marijuana Last use: 7/18/22 Living arrangements: with family Gender identity (if verbalized by the patient): Female Spiritual care concerns: No Exam Narrative: GENERAL: Well-appearing, well-nourished, and in no acute distress. HEAD: Normocephalic, atraumatic. EYES: PERRLA and EOMI. ENT: Nares clear, no rhinorrhea or epistaxis. Mucous membranes moist. Oropharynx without tonsillar hypertrophy exudate or other lesions. NECK: Supple. No adenopathy or masses. Mild right paraspinal cervical tenderness. CHEST: No respiratory distress. Clear to auscultation. No wheezes rales or rhonchi HEART: Regular rate and rhythm. No murmur heard. Normal peripheral pulses. ABDOMEN: Soft, nontender, nondistended, normal active bowel sounds. MSK: Normal range of motion. No edema. SKIN: Warm, dry, no rash. NEURO: Alert and oriented x3. No focal deficits. PSYCH: Normal mood and affect. Course Vital Signs Vital signs: Vital Signs Temperature 97.2 F L 02/02/23 10:33 Pulse Rate 60 02/02/23 10:33 Respiratory Rate 16 02/02/23 10:33 Blood Pressure 105/74 02/02/23 10:33 Pulse Oximetry 100 02/02/23 10:33 Temperature 97.2 F L 02/02/23 10:33 Pulse Rate 60 02/02/23 10:33 Respiratory Rate 16 02/02/23 10:33 Blood Pressure 105/74 02/02/23 10:33 Pulse Oximetry 100 02/02/23 10:33 Medical Decision Making [facility] Narrative Medical decision making narrative: This is a 27-year-old female who presents to the ED with chief complaint of upper neck/right posterior head pain for the past week. She had an injury that onset this initially. Vitals are normal. Exam reveals right-sided paraspinal cervical tenderness and tenderness along the u
== END 2023-02-02 12:37 | disposition home or self-care (01) ==
PROVIDERS: Emergency Provider Physician Assistant; PCP Internal Medicine
DX: S16.1XXA Strain of muscle, fascia and tendon at neck level, initial encounter (principal); J45.909 Unspecified asthma, uncomplicated; E66.9 Obesity, unspecified; Z68.20 Body mass index [BMI] 20.0-20.9, adult; W22.8XXA Striking against or struck by other objects, initial encounter
CPT/HCPCS: 72125; 99284

== ENCOUNTER 2023-07-26 19:18 | Emergency (ER) | payer OTHER, SELFPAY ==
[2023-07-26 19:24] VITALS: BP 112/69; PULSE 59; RESP 18; TEMP 36.9; O2SAT 100
--- NOTE | 2023-07-26 19:24 | ED.URI ---
HPI - URI/Sore Throat General Chief Complaint: Upper Respiratory Infection Stated Complaint: Sore Throat Time Seen by Provider: 07/26/23 19:45 Source: patient, RN notes reviewed and old records reviewed Mode of arrival: ambulatory Limitations: no limitations History of Present Illness HPI Narrative: 27 year old female who presents to [facility] care with complaints of sore throat, headache and some lymph node swelling for the past 8 days. Patient reports that her headache is gone but sore throat has continued with right side of her throat and neck sore. Patient has been taking Tylenol for her discomfort. Patient reports no know recent fevers, chills or body aches, denies any cough or any emesis MD elicited complaint: sore throat Pain scale (0-10): 6 Able to tolerate fluids by mouth: Yes Treatments prior to arrival: acetaminophen Related Data Home Medications Medication Instructions Recorded Confirmed escitalopram oxalate 10 mg tablet 10 mg PO DAILY 08/13/22 07/26/23 lorazepam 1 mg tablet 1 mg PO TID PRN Anxiety 07/26/23 07/26/23 Allergies Allergy/AdvReac Type Severity Reaction Status Date / Time prochlorperazine Allergy Unknown Unknown Verified 07/26/23 19:48 [From Compazine] hydrocodone AdvReac Mild NAUSEA Verified 07/26/23 19:47 metoclopramide [From Reglan] AdvReac Mild Muscle Verified 07/26/23 19:47 Spasms diazepam [From Valium] AdvReac Unknown Unknown Verified 07/26/23 19:48 Review of Systems Review of Systems: CONSTITUTIONAL: Denies malaise, chills, sweats, or fever. EYES: Denies visual changes, redness, or discharge. ENT: Reports no rhinorrhea, congestion, sinus pain, no otalgia and positive for sore throat. CARDIOVASCULAR: Denies chest pain, palpitations, or edema. RESPIRATORY: Reports no cough.? Denies dyspnea. GASTROINTESTINAL: Denies abdominal pain, occasional nausea, no vomiting, diarrhea SKIN: Denies rash or itching. MUSCULOSKELETAL: Denies myalgia. NEUROLOGIC: Denies any recent headache. All systems reviewed & are unremarkable except as noted in HPI and below PMFSH Past Medical History Medical History Asthma Atypical chest pain Bilateral lower abdominal cramping Chronic diarrhea Depression Family history of colorectal cancer Internal hemorrhoid Marijuana abuse Migraine Nausea Obesity Surgical History Surgical History H/O inguinal hernia repair [place] teeth extracted Family History Family History Father Hypertension Mother Skin cancer Sibling Skin cancer Lung cancer Grandparent Asthma Social History Social History Smoking status: Never smoker Substance use: current Substance use type: marijuana Last use: 01/06/22 Living arrangements: with family Gender identity (if verbalized by the patient): Female Spiritual care concerns: No Comments At time of signature, agree with nursing past medical, surgical, social and family history. There is no relevant family history pertinent to the presenting complaint Exam Narrative: GENERAL: Well-appearing, well-nourished, and in no acute distress. HEAD: Normocephalic EYES: PERRLA, conjunctivae clear ENT: Nares clear, turbinates edematous and erythematous, clear discharge. Mucous membranes moist. TM pearly galarza with dull light reflex bilaterally; no tragal tenderness. Oropharynx erythematous without lesions. Tonsils enlarged and without exudate, no drooling, no hoarseness, no trismus, uvula midline. NECK: Supple. lymphadenopathy CHEST: Clear to auscultation, breath sounds equal. No wheezing, rhonchi, rales, or stridor. No respiratory distress, speaks in full sentences.no cough noted SAO2 100% on room air HEART: Regular rate and rhythm. No murmur heard. SKIN: Warm,
== END 2023-07-26 19:55 | disposition home or self-care (01) ==
PROVIDERS: Emergency Provider Registered Nurse; PCP Internal Medicine
DX: J02.0 Streptococcal pharyngitis (principal); J45.909 Unspecified asthma, uncomplicated; E66.9 Obesity, unspecified; Z68.20 Body mass index [BMI] 20.0-20.9, adult; F32.A Depression, unspecified
CPT/HCPCS: 87880; 99213; G0463

== ENCOUNTER 2023-08-05 12:37 | Outpatient (CLI) | payer OTHER, SELFPAY ==
[2023-08-05 13:31] LABS: Alanine Aminotransferase 13 U/L (6-35); Albumin Level 4.3 g/dL (3.5-5.1); Alkaline Phosphatase 72 U/L (38-126); Anion Gap 6 mmol/L (8-16); Aspartate Amino Transferase 25 U/L (14-36); Bilirubin,Total 0.7 mg/dL (0.2-1.3); Blood Urea Nitrogen 9 mg/dL (7-17); Calcium 9.1 mg/dL (8.4-10.2); Carbon Dioxide 28 mmol/L (22-30); Chloride 104 mmol/L (98-107); Estimated Glomerular Filt Rate > 60; Glucose 113 mg/dL (65-110); Potassium 3.9 mmol/L (3.4-5.0); Sodium 138 mmol/L (137-145)
[2023-08-05 13:48] LABS: CRP < 0.5 mg/dL (<1.0)
[2023-08-05 13:50] LABS: Erythrocyte Sedimentation Rate 17 mm/hr (0-20)
[2023-08-05 14:10] LABS: HIV 1/2 Ab P24 Ag Result Negative (Negative)
[2023-08-05 14:24] LABS: Thyroid Stimulating Hormone Reflex 0.717 uIU/mL (0.465-4.68)
[2023-08-05 14:26] LABS: Hepatitis B Surface Antigen Negative (Negative)
[2023-08-05 14:31] LABS: HAV RESULT Negative (Negative); Hepatitis B Core IgM Result Negative (Negative)
[2023-08-05 14:43] LABS: Hepatitis C Virus Antibody Negative (Negative)
[2023-08-11 06:42] LABS: Immunoglobulin A 217 mg/dL (47-310); TTG IGA AB <1.0 U/mL (<15.0)
== END 2023-08-05 12:38 | disposition home or self-care (01) ==
PROVIDERS: PCP Internal Medicine; Visit Provider Nurse Practitioner
DX: R63.4 Abnormal weight loss (principal); R10.13 Epigastric pain; K58.0 Irritable bowel syndrome with diarrhea; R59.0 Localized enlarged lymph nodes
CPT/HCPCS: 36415; 80053; 80074; 82784; 84443; 85652; 86140; 86364; 86703; G0432

== ENCOUNTER 2023-08-06 11:21 | Outpatient (CLI) | payer OTHER, SELFPAY ==
[2023-08-17 19:11] LABS: Calprotectin, Stool 77 mcg/g; Pancreatic Elastase, Stool 360 mcg/g
== END 2023-08-06 11:22 | disposition home or self-care (01) ==
LOC: ANHLAB 11:22
PROVIDERS: PCP Internal Medicine; Visit Provider Nurse Practitioner
DX: K58.0 Irritable bowel syndrome with diarrhea (principal); R10.13 Epigastric pain; R59.0 Localized enlarged lymph nodes; R63.4 Abnormal weight loss
CPT/HCPCS: 82653; 83993

== ENCOUNTER 2023-08-19 09:10 | Outpatient (CLI) | payer OTHER, SELFPAY ==
--- NOTE | ~2023-08-19 | US_ITS ---
EXAMINATION: US soft tissue head and neck DATE: 08/19/2023 10:05 INDICATION: Left neck lump. TECHNIQUE: Multiple grayscale and Doppler ultrasound images of the head and neck were obtained. COMPARISON: CT cervical spine 02/02/2023 FINDINGS: There are no pathologically enlarged lymph nodes. The submandibular glands are normal. IMPRESSION: 1. No abnormal neck mass or lymphadenopathy. Reviewed, dictated and finalized at location A. [employer]
== END 2023-08-19 09:11 | disposition home or self-care (01) ==
LOC: ANHIMG 09:12
PROVIDERS: PCP Internal Medicine; Visit Provider Nurse Practitioner
DX: R59.0 Localized enlarged lymph nodes (principal)
CPT/HCPCS: 76536

== ENCOUNTER 2023-11-20 11:59 | Emergency (ER) | payer OTHER, SELFPAY ==
[2023-11-20 12:11] VITALS: BP 117/78; PULSE 85; RESP 16; TEMP 37.7; O2SAT 99
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
== END 2023-11-20 12:45 | disposition home or self-care (01) ==
PROVIDERS: Emergency Provider Nurse Practitioner Family; PCP Internal Medicine
DX: J02.9 Acute pharyngitis, unspecified (principal); J45.909 Unspecified asthma, uncomplicated; E66.9 Obesity, unspecified; Z68.20 Body mass index [BMI] 20.0-20.9, adult; F32.A Depression, unspecified
CPT/HCPCS: 87081; 87880; 99213; G0463

== ENCOUNTER 2025-03-26 10:16 | Emergency (ER) | payer OTHER, SELFPAY ==
--- OUTSIDE RECORDS SUMMARY | 2025-03-26 10:18 | XMS_ITS | Clinical Summary ---
Author Organization [facility] Address [address] [place] [address] Care Team Providers Care Olive Packer Name Role Phone Unavailable Primary Care Provider Unavailabl e Source Comments [facility],non-owned Affiliates and Associated Physician Practices is amultiple site organization consisting of ambulatory clinics and hospital sitesin [place], [place], [place] and [place]. This disclosure is being madepursuant to the Care Everywhere program and may not contain all information available regarding this patient. 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 Gender Identity Not on file Sexual Orientation Not on file Plan of Treatment Health Maintenance Due Date Last Done Comments DTAP/TDAP/TD VACCINES (1 - Tdap) 2015 HEPATITIS B VACCINE (1 of 3 - 19+ 3-dose series) 2015 PAP SMEAR 2017 HPV VACCINE (1 - 3-dose SCDM series) 2023 DEPRESSION SCREENING 06/22/2024 COVID-19 VACCINE ( - 2023- season) 2025 INFLUENZA VACCINE (#1) 2025 8, 04/04/2015, 05/02/2014, Additional history exists ZOSTER VACCINE (1 of 2) 2046 HEPATITIS C SCREENING Completed 10/20/2022 HIV SCREENING Completed 10/20/2022 HIB VACCINE Aged Out No longer eligi ble based on patient's age to complete this topic MENINGOCOCCAL (Group B) VACCINE SHARED DECISION-MAKING Aged Out No longer eligible based on patient's age to complete this topic MENINGOCOCCAL GROUPS A/C/Y/W VACCINE Aged Out No longer eligible based on patient's age to complete this topic PNEUMOCOCCAL VACCINE Aged Out No long er eligible based on patient's age to complete this topic Insurance [facility]
--- OUTSIDE RECORDS SUMMARY | 2025-03-26 10:18 | XMS_ITS | Encounter Summary ---
Author Organization [facility] Address [address] [facility] [place] [address] Phone Care Team Providers Care Frame Stylist Name Role Phone Ant Gtz MD Primary Care Provider Alonso Springer APRN, CNP Primary Care Pr ovider Reason for Visit * Reason Comments Medication Refill Encounter Details Date Type Department Care Team (Late st Contact Info) Description 10/24/2023 Refill [facility] [address] [place] [address] Nikki Cleary APRN, CNP [address] [address] Medication Refill Social History Tobacco Use Types Packs/Day Years Used Date Smoking Tobacco: Never Smokeless Tobacco: Never Alcohol Use Standard Drinks/Week Comments Yes 0 (1 standard drink = 0.6 oz pur e alcohol) Couple times a year [facility] Utilities Answer Date Recorded In the past 12 months has [employer] electric, gas, oil, or water company threatened to shut off services in your home? No 09/09/2023 Social Connection and Isolation Panel Answer Date Recorded In a typical week, how many times do you talk on the phone with family, friends, or neighbors? Three times a week 09/09/2023 How often do you get togethe r with friends or relatives? Twice a week 09/09/2023 How often do you attend chur ch or mormonism services? More than 4 times per year 09/09/2023 Do you belong to any clubs o r organizations such as adventist groups, unions, fraternal or athletic groups, or school groups? Yes 09/09/2023 How often do you attend meet ings of the clubs or organizations you belong to? More than 4 times per year 09/09/2023 Are you , , di vorced, , never , or living with a partner? Never 09/09/2023 AUDIT-C Answer Date Recorded Q1: How often do you have a drink containing alcohol? Never 09/09/2023 Q2: How many drinks containi ng alcohol do you have on a typical day when you are drinking? Patient does not drink Q3: How often do you have si x or more drinks on one occasion? Never 09/09/2023 Overall Financial Resource Strain (CARDIA) Answe r Date Recorded How hard is it for you to pa y for the very basics like food, housing, medical care, and heating? Somewhat hard 09/09/2023 PHQ-2 Answer Date Recorded Total Score - Questions 1-9 0 09/20 [facility] - Occupational Stress Questionnaire Answer Date Recorded Do you feel stress - tense, restless, nervous, or anxious, or unable to sleep at night because your mind is troubled all the time - these days? To some extent 09/09/2023 Exercise Vital Sign Answer Date Recorde d On average, how many days pe r week do you engage in moderate to strenuous exercise (like a brisk walk)? 4 days 09/09/2023 On average, how many minutes do you engage in exercise at this level? 60 min 09/09/2023 Hunger Vital Sign Answer Date Recorded Within the past 12 months, y ou worried that your food would run out before you got the money to buy more. Sometimes true Within the past 12 months, t he food you bought just didn't last and you didn't have money to get more. Patient declined PRAPARE - Transportation Answer Date Re corded In the past 12 months, has l ack of transportation kept you from medical appointments or from getting medications? No 08/21 In the past 12 months, has l ack of transportation kept you from meetings, work, or from getting things needed for daily living? No 09/09/2023 Housing Stability Vital Sign Answer Jamin e Recorded In the last 12 months, was t here a time when you were not able to pay the mortgage or rent on time? No 09/09/2023 In the last 12 months, how many places have you lived? 1 09/09/2023 In the last 12 months, was t here a time when you did not have a steady place to sleep or slept in a senior care (including now)? 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 Requested Prescriptions Pending Prescriptions Disp Refills ondansetron (ZOFRAN) 4 MG Tablet [Pharmacy Med Name: ONDANSETRON HCL 4 MG TABLET] 10 Tablet 0 Sig: TAKE 1 TABLET BY MOUTH EVERY 8 HOURS NEEDED FOR NAUSEA FIRST LINE Not Delegated - 5-HT3 Antagonists Protocol Failed - 10/24/2023 6:26 PM Failed - This refill cannot be delegated Passed - Visit with relevant provider in past 12 months or upcoming 90 days Recent Visits Date Type Provider Dept 10/08/23 Office Visit [facility] [place] [facility] 09/09/23 Office Visit Momo Wilks [place] [facility] 08/07/23 Office Visit Nikki Cleary APRN, MODULAR HOME CREW MEMBER [facility] 06/26/23 Office Visit Alonso Springer APRN, STEPHANIE [facility] 05/21/23 Office Visit Ant Gtz MD [facility] 04/23/23 Office Visit Ant Gtz MD [facility] 02/11/23 Office Visit Ant Gtz MD [facility] 01/30/23 Office Visit Alonso Springer APRN, STEPHANIE [facility] 01/27/23 Office Visit Ant Gzt MD [facility] 10/31/22 Office Visit Ant Gtz MD [facility] Showing recent visits within past 365 days and meeting all other requirements Future Appointments No visits were found meeting these conditions. Showing future appointments within next 90 days and meeting all other requirements escitalopram (LEXAPRO) 20 MG Tablet [Pharmacy Med Name: ESCITALOPRAM 20 MG TABLET] 90 Tablet 0 Sig: TAKE 1 TABLET BY MOUTH EVERY DAY SSRI (6 Month Refill Only) Protocol Failed - 10/24/2023 6:26 PM Failed - Patient has established therapy with SSRI for at least 6 months Passed - No test in the past 12 months or most recent test was negative Passed - No active on record Passed - Visit with relevant provider in past 6 months or upcoming 90 days Recent Visits Date Type Provider Dept 10/08/23 Office Visit Ant Gtz MD [facility] 09/09/23 Office Visit Momo Wilks [place] [facility] 08/07/23 Office Visit Nikki Cleary [facility] 06/26/23 Office Visit Alonso Springer APRN, STEPHANIE [facility] 05/21/23 Office Visit [facility] Showing recent visits within past 182 days and meeting all other requirements Future Appointments No visits were found meeting these conditions. Showing future appointments within next 90 days and meeting all other requirements Passed - Has an encounter in the past 6 months with a depression, anxiety, adjustment disorder, OCD, or PTSD visit diagnosis documented in this encounter Plan of Treatment Upcoming Encounters Date Type Department Care Team (Late st Contact Info) Description 05/09/2025 8:45 AM WRAPAROUND FACILITATOR Office Visit [facility] - Family Medicine - [place] [address] [place] [address] Alonso Springer APRN, MODULAR HOME CREW MEMBER [address] [address] documented as of this encounter Visit Diagnoses Diagnosis Nausea and vomiting in adult Nausea with vomiting Anxiety Anxiety state, unspecified Depression, unspecified depression type documented in this encounter Additional Health Concerns Infection Onset Date Last Indicated Resolved Time COVID - 19 06/02/2024 06/02/2024 06/02/2024 9:24 PM WRAPAROUND FACILITATOR Assessment Noted Time PHQ-9 Depression Total Score: 0 10/08/19 8:04 AM CDT documented as of this encounter Care Teams Frame Stylist Relationship Specialty Start Date End Date Ant Gtz MD [address] [address] PCP - General Family Medicine 12/03/21 02/22/25 Alonso Springer, PRODUCT ANALYST, MODULAR HOME CREW MEMBER [address] [address] PCP - General Advanced Practice Nurse 02/23/25 documented as of this encounter
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
--- OUTSIDE RECORDS SUMMARY | 2025-03-26 10:18 | XMS_ITS | Encounter Summary ---
Author Organization [facility] Address [address] [facility] [place] [address] Phone Care Team Providers Care Welt Insole Channeler Name Role Phone Alonso Springer APRN, CNP Primary Care Pr ovider Encounter Details Date Type Department Care Team (Late st Contact Info) Description 02/23/2025 Results Follow-Up [facility] - Family Medicine - [address] [place] [id number] Alonso Springer APRN, STEPHANIE [address] [id number] CMP (COMPREHENSIVE METABOLIC PANEL), LIPID PANEL, VITAMIN B12, Additional followed-up results: 3 Social History Tobacco Use Types Packs/Day Years Used Date Smoking Tobacco: Never Smokeless Tobacco: Never Alcohol Use Standard Drinks/Week Comments Yes 0 (1 standard drink = 0.6 oz pur e alcohol) Couple times a year [facility] Utilities Answer Date Recorded In the past 12 months has [employer], gas, oil, or water company threatened to [...] often do you attend chur ch or adventist services? More than 4 times per year 09/09/2023 Do you belong to any clubs o r organizations such as amish groups, unions, fraternal or athletic groups, or [...] Recorded Total Score - Questions 1-9 0 09/0 09/2024 [facility] of Occupat ional Health - Occupational Stress Questionnaire Answer Date Recorded [...] place to sleep or slept in a correction (including now)? No 09/09/2023 Sexually Active Control [...] on file documented as of this encounter Functional Status * Question Answer Date of Assessment Author Little interest or pleasure in doing things Not at all 02/23/2025 12:47 PM CDT Sharon Chan MA Feeling down, depressed, or hopeless Not at all 02/23/2025 12:47 PM CDT Brooke Chan MA * Over the past 2 weeks, how often have you been bothered by any of the following problems? Question Answer Date of Assessment Author Patient Health Questionnaire-2 Score 0 02/23/2025 12:47 PM CDT Gerda Chan MA documented as of this encounter Miscellaneous Notes * Telephone Encounter - Martha Arango RN - 02/24/2025 6:33 AM CDT Situation: Patient notified and voiced understanding. Background: Pt contacting PCP office. Assessment: na Recommendation: na documented in this encounter Plan of Treatment Upcoming Encounters Date Type Department Care Team (Late st Contact Info) Description 05/09/2025 8:45 AM CORRECTIVE THERAPIST Office Visit [facility] - Family Medicine - [address] [place] [address] Alonso Springer APRN, RAMP MANAGER [address] [facility] [place] [address] documented as of this encounter Goals Goal Patient Goal Type Associated Problems Recent Progress Patient-Stated? Author To find out what's really wrong with my brain. I don't want to rely so much on my medicine. Anxiety On track( 025 10:27 AM CDT) Nadeen Ku, [facility] Note: Goal/Objective: Decrease symptoms associated with anxiety. Anticipated Time Frame for Goal Completion: 6 months Goal Reviewed with: patient Readiness to change: Ready to change Department associated with goal: [facility] Steps to achieve goal: will attend counseling/psychotherapy sessions at least once monthly, at least 6 sessions, utilizing individual and/or group sessions to express thoughts and feelings. to identify, verbalize and process at least three contributing factors/triggers to anxiety. to identify and verbalize at least three actions/skills to prevent and/or cope with anxiety. to put into action, at least one time weekly, for one month, an action/skill to prevent and or cope with anxiety. documented as of this encounter Visit Diagnoses Not on filedocumented in this encounter Additional Health Concerns Assessment Noted Time PHQ-9 Depression Total Score: 0 02/24/20 25 12:47 PM CDT documented as of this encounter Care Teams Welt Insole Channeler Relationship Specialty Start Date End Date Alonso Springer APRN, RAMP MANAGER [address] [address] PCP - General Advanced Practice Nurse 02/23/25 documented as of this encounter
--- OUTSIDE RECORDS SUMMARY | 2025-03-26 10:18 | XMS_ITS | Clinical Summary ---
Author Organization [facility] Address [address] [place] [address] Phone Care Team Providers Care Shaker Washer Name Role Phone Alonso Springer APRN, RETREADER Primary Care Pr ovider Allergies Active Allergy Reactions Criticality Noted Date Comments Clindamycin Rash 01/30/2023 Codeine Vomiting 06/18/2019 Prochlorperazine Vomiting 09/13/2022 Duloxetine Hcl Diarrhea 05/19/2023 Nausea diarrhea Hydrocodone Nausea 02/26/2017 Metoclopramide Other (see Comments) 03/21/2020 Mini seizure Medications Cholecalcifer ol (VITAMIN D3 PO) Take 1 Tablet by mouth daily. Active other by Other route. Pre-biotic Active naproxen (NAPROSYN) 500 MG Tablet Take 1 Tablet by mouth 2 times daily as needed for Moderate or more severe pain. 60 Tablet 1 12/10/19 25 Active dicyclomine (BENTYL) 20 MG Tablet Take 1 Tablet by mouth every 6 hours as needed (abdoinal cramping). 30 Tablet 12/13/19 25 Active propranolol (INDERAL) 10 MG TabletIndicat ions:Generali zed anxiety disorder with panic attacks Take 1 Tablet by mouth 3 times daily as needed (anxiety). 45 Tablet 02/24/20 25 Active ondansetron (ZOFRAN) 8 MG Tablet Take 1 Tablet by mouth every 8 hours as needed for Nausea - 1st line. 30 Tablet 03/08/20 25 Active escitalopram (LEXAPRO) 20 MG TabletIndicat ions:Generali zed anxiety disorder with panic attacks Take 1 Tablet by mouth daily. 30 Tablet 1 03/23/20 Active LORazepam (ATIVAN) 1 MG Tablet Take 1 mg by mouth every 12 hours as needed. Active mupirocin (BACTROBAN) 2 % OintmentIndic ations:Follic ulitis Application Site: Apply to spot on scalp twice daily for up to 2 weeks or until healed (Description and Location) 22 g 03/23/20 25 025 Active LORazepam (Ativan) 2 MG TabletIndicat ions:Anxiety Take 1 Tablet by mouth every 8 hours as needed for Anxiety. 90 Tablet 12/10/19 25 025 Discontinued escitalopram (LEXAPRO) 10 MG Tablet Take 1 Tablet by mouth daily. 90 Tablet 12/13/19 25 025 Discontinued(Re order) hydrOXYzine (ATARAX) 25 MG TabletIndicat ions:Anxiety Take 1 Tablet by mouth every 6 hours as needed for Anxiety. 90 Tablet 12/13/19 25 025 Discontinued ondansetron (ZOFRAN) 8 MG Tablet Take 1 Tablet by mouth every 8 hours as needed for Nausea - 1st line. 30 Tablet 02/24/20 25 025 Discontinued(Re order) LORazepam (ATIVAN) 2 MG TabletIndicat ions:Anxiety TAKE 1 TABLET BY MOUTH EVERY 8 HOURS NEEDED FOR ANXIETY 90 Tablet 03/08/20 25 025 Discontinued(Do se adjustment) hydrOXYzine (ATARAX) 25 MG TabletIndicat ions:Anxiety TAKE 1 TABLET BY MOUTH EVERY 6 HOURS NEEDED FOR ANXIETY 90 Tablet 03/08/20 25 025 Discontinued(Me d List Clean Up) Active Problems Problem Noted Date Diagnosed Date PTSD (post-traumatic stress disorder) 02/23/2025 Generalized anxiety disorder with panic attacks 12/27/2024 Hyperglycemia 09/09/2023 Vitamin D deficiency 09/09/2023 Fatigue 09/09/2023 Anxiety 05/12/2023 Depression 05/12/2023 Chronic tonsillitis 03/09/2018 Lymphadenopathy, cervical 03/09/2018 Encounters Date Type Department Care Team Description 03/23/2025 8:45 AM CDT Office Visit [facility] [address] [place] [address] Alonso Springer APRN, STEPHANIE Generalized anxiety disorder with panic attacks (Primary Dx); PTSD (post-traumatic stress disorder); Folliculitis; Therapeutic drug monitoring Discharge Disposition: Discharged to home or Selfcare 03/20/2025 3:45 PM CDT - 03/20/2025 5:48 PM CDT Emergency [facility] Emergency [address] [place] [address] Ramana Petty DO Chest pain Discharge Disposition: Discharged to home or Selfcare 03/20/2025 Travel 03/19/2025 Telephone [facility] [address] [place] [phone] Alonso Springer APRN, RETREADER Advice Only 03/07/2025 MyChart RX Renewal [facility] [address] [place] [address] Alonso Springer APRN, RETREADER Medication Renewal Reviewed 03/07/2025 Refill [facility] [address] [place] [address] Caitlyn Kuo PAC Medication Refill 03/07/2025 [facility] [place] [address] Ant Gtz MD Medication Refill 02/24/2025 Telephone [facility] [address] [place] [phone] Alonso Springer APRN, RETREADER Advice Only 02/23/2025 1:15 PM CDT Office Visit [facility] [address] [place] [address] GianAlonso perdomo APRN, CNP Generalized anxiety disorder with panic attacks (Primary Dx); PTSD (post-traumatic stress disorder); Screening for lipid disorders Discharge Disposition: Discharged to home or Selfcare 02/23/2025 Results Follow-Up [facility] [address] [place] [address] Alonso Springer APRN, CNP CMP (COMPREHENSIVE METABOLIC PANEL), LIPID PANEL, VITAMIN B12, Additional followed-up results: 3 02/23/2025 Travel 02/13/2025 [facility] [address] [place] [phone] Ant tGz MD Appointment; Headache; Chest Pain 01/12/2025 9:49 AM CDT - 01/12/2025 2:21 PM CDT Emergency [facility] Emergency [address] [place] [phone] Ita Kwan APRN, CNP Pelvic pain Discharge Disposition: Discharged to home or Selfcare 01/11/2025 Nurse Triage [address] [phone] Ant Gtz MD Urinary Problem 01/09/2025 10:30 AM CDT Outpatient Clinic Visit [facility] [address] [place] [phone] Nadeen Carrington LCPC Generalized anxiety disorder with panic attacks (Primary Dx) Discharge Disposition: Discharged to home or Selfcare 01/09/2025 Travel 01/03/2025 Nurse Triage [address] [phone] Ant Gtz MD Mouth Lesions 12/27/2024 9:00 AM CDT Outpatient Clinic Visit [facility] [address] [place] [phone] Caitlny Kuo PAC Brown, Rachel C, LCPC Generalized anxiety disorder with panic attacks (Primary Dx) Discharge Disposition: Discharged to home or Selfcare 12/27/2024 Travel from Last 3 Months Immunizations Immunization Administration Dates Next Due DTAP VACCINE 03/03/2002,02/24/1998 DTP-Hib 02/04/1997,1996,1996 Hepatitis A Vaccine, Pediatric/adolescent, 2 Dose Schedule 02/05/2006,06/03/2005 Hepatitis B Vaccine, Pediatric/adolescent 02/04/1997,1996,1996 Hib Vaccine,unspecified Formulation 02/24/1998 Human Papillomavirus Vaccine (HPV), quadrivalent 03/10/2007,11/04/2006,09/01/2006 Inactivated Polio Vaccine 03/03/2002,02/24/1998 Influenza Vaccine Quadrivalent Nasal 03/31/2013 Influenza Vaccine, Quadrivalent, PF 05/21/2023,1 07/02/2013 Influenza Vaccine,unspecifie d Formulation 2012,05/09/2009,06/03/2007,04/17,12/07/2000,08/12/1997 Influenza, Injectable, Quadrivalent 04/29/2018,1 Influenza, Seasonal, Injecta ble, Undefined 05/06/2011 Influenza,Split Virus,Trivalent,Injectable,PF 04/19/2024 MMR Vaccine 01/27/2017,12/07/2000,08/12/1997 Meningococcal MCV4, Unspecif ied Formulation 2012,01/26/2008 OPV 02/04/1997,1996,1996 TDAP Vaccine 11/30/2019,12/31/2016,09/01/2006 Varicella Vaccine Live 09/01/2006,08/12/1997 Family History Medical History Relation Name Comments Alcohol Abuse Brother 1 Anxiety disorder Father Hypertension Father Anxiety disorder Mother Chronic Obstructive Pulmonary Disease Mother Skin Cancer Mother Relation Name Status Comments Brother 1 Alive Brother 2 Father Alive Mother Alive Social History Tobacco Use Types Packs/Day Years Used Date Smoking Tobacco: Never Smokeless Tobacco: Never Tobacco Cessation:Counseling Given: No Alcohol Use Standard Drinks/Week Comments Yes 0 (1 standard drink = 0.6 oz pur e alcohol) Couple times a year [facility] Utilities Answer Date Recorded In the past 12 months has th e electric, gas, oil, or water company threatened [...] often do you attend chur ch or nondenominational services? More than 4 times per year 09/09/2023 Do you belong to any clubs o r organizations such as gnosticist groups, unions, fraternal or athletic groups, or [...] Score - Questions 1-9 0 09/0 09/2024 [facility] - Occupational Stress [...] place to sleep or slept in a penitentiary (including now)? 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 Not on file Not on file Not on file Last Filed Vital Signs Vital Sign Reading Time Taken Comments Blood Pressure 98/60 03/23/2025 8:38 AM CDT Pulse 71 03/23/2025 8:38 AM CDT Temperature 36.5 C (97.7 F) 03/23/2025 8:38 AM CDT Respiratory Rate 12 03/23/2025 8:38 AM CDT Oxygen Saturation 98% 03/23/2025 8:38 AM CDT Inhaled Oxygen Concentration - - Weight 67 kg (147 lb 9.6 oz) 03/23/2025 8:38 AM CDT Height 177.8 cm (5' 10) 03/23/2025 8:38 AM CDT Body Mass Index 21.18 03/23/2025 8:38 AM CDT Plan of Treatment Upcoming Encounters Date Type Department Care Team (Late st Contact Info) Description 05/09/2025 8:45 AM [facility] HAND [facility] [address] [place] [address] Alonso Springer, ASSOCIATE DATA SCIENTIST, RETREADER [address] [place] [address] Health Maintenance Due Date Last Done Comments Influenza Immunization (#1) 02/20/202503/23, 05/21/2023, 04/29/2018, Additional history exists SARS-COV-2 Immunization ( season) 2025 Pap Smear 06/02/2026 06/02/2023, 04/28/2022 DTaP/Tdap/Td Immunization (9 - Td or Tdap) 11/29/2029 11/30/2019, 12/31/2016, 09/01/2006, Additional history exists Respiratory Syncytial Virus (RSV) Immunization (Adult) (1 - 1-dose 75+ series) 2071 Hepatitis B Immunization Completed 997, 1996, 1996 Human Papillomavirus (HPV) Immunization Completed 03/10/2007, 11/04/2006, 09/01/2006 Meningococcal Immunization (ACWY) Completed 2012, 01/26/2008 Hepatitis C Virus (HCV) Screening Completed 2023, 10/20/2022 Pneumococcal Immunization Combined Aged Out No longer eligible based on patient's age to complete this topic Rotavirus Immunization Aged Out No lo nger eligible based on patient's age to complete this topic Goals Goal Patient Goal Type Associated Problems Recent Progress Patient-Stated? Author To find out what's really wrong with my brain. I don't want to rely so much on my medicine. Anxiety On track( 025 10:27 AM CDT) No Nadeen Carrington, ADULT CROSSING GUARD Note: Goal/Objective: Decrease symptoms associated with anxiety. Anticipated Time Frame for Goal Completion: 6 months Goal Reviewed with: patient Readiness to change: Ready to change Department associated with goal: [facility] Steps to achieve goal: [...] to prevent and or cope with anxiety. Procedures Procedure Name Priority Date/Time Associated Diagnosis Comments URINALYSIS (UA) MACROSCOPIC STAT 03/20/2025 4:50 PM CDT XR CHEST SINGLE VIEW PORTABLE STAT 03/20/2025 4:07 PM CDT CBC WITH AUTO DIFFERENTIAL STAT 03/20/2025 3:02 PM CDT TROPONIN I, HIGH SENSITIVITY (HSTRP) STAT 03/20/2025 3:02 PM CDT CMP (COMPREHENSIVE METABOLIC PANEL) STAT 03/20/2025 3:02 PM CDT COMPLETE BLOOD COUNT (CBC) WITH DIFF STAT 03/20/2025 3:02 PM CDT EKG 12 LEAD STAT 03/20/2025 2:52 PM CDT EKG SCAN 03/20/2025 12:00 AM CDT THYROID SCREEN WITH REFLEX Routine 02/23/2025 2:16 PM CDT PTSD (post-traumatic stress disorder) CBC WITH AUTO DIFFERENTIAL Routine 02/23/2025 2:16 PM CDT PTSD (post-traumatic stress disorder) THYROID SCREEN WITH REFLEX Routine 02/23/2025 2:16 PM CDT PTSD (post-traumatic stress disorder) FOLIC ACID (FOLATE) Routine 02/23/2025 2:16 PM CDT PTSD (post-traumatic stress disorder) VITAMIN B12 Routine 02/23/2025 2:16 PM CDT PTSD (post-traumatic stress disorder) LIPID PANEL Routine 02/23/2025 2:16 PM CDT Screening for lipid disorders COMPLETE BLOOD COUNT (CBC) WITH DIFF Routine 02/23/2025 2:16 PM CDT PTSD (post-traumatic stress disorder) CMP (COMPREHENSIVE METABOLIC PANEL) Routine 02/23/2025 2:16 PM CDT PTSD (post-traumatic stress disorder) CT ABDOMEN PELVIS W/ CONTRAST Stat with Interpretation 01/12/2025 12:48 PM CDT VAGINITIS SCREEN, MOLECULAR STAT 01/12/2025 10:52 AM CDT GOLD TOP TUBE STAT 01/12/2025 10:07 AM CDT BLUE TOP TUBE STAT 01/12/2025 10:07 AM CDT CBC WITH AUTO DIFFERENTIAL STAT 01/12/2025 10:07 AM CDT EXTRA TUBES STAT 01/12/2025 10:07 AM CDT CMP (COMPREHENSIVE METABOLIC PANEL) STAT 01/12/2025 10:07 AM CDT COMPLETE BLOOD COUNT (CBC) WITH DIFF STAT 01/12/2025 10:07 AM CDT CHLAMYDIA & GC DNA PROBE STAT 01/12/2025 10:02 AM CDT URINALYSIS REFLEX IF INDICATED BY ABNORMAL RESULTS STAT 01/12/2025 10:02 AM CDT CHLAMYDIA & GC DNA PROBE ADULT STAT 01/12/2025 10:02 AM CDT POCT URINE HCG () STAT 01/12/2025 10:00 AM CDT HEPATITIS PANEL ACUTE (AHP) 2023 12:00 AM [facility] HAND PATHOLOGY CYTOLOGY COOKER CASING 04/28/2022 12:00 AM KIL[facility] HAND from Last 3 Months or Most Recently Relevant to Health Maintenance Results * (ABNORMAL) Urinalysis (Ua) Macroscopic [id number] (03/20/2025 4:50 PM CDT) SPECIFIC GRAVITY 1.010 1.003 - 1.030 03/20/2025 5:23 PM CDT [facility] URINE PH 6.0 5.0 - 9.0 03/20/2025 5:23 PM CDT [facility] WBC ESTERASE Negative Negative 03/20/2025 5:23 PM CDT [facility] NITRITE Negative Negative 03/20/2025 5:23 PM CDT [facility] PROTEIN, RANDOM URINE 15 mg/dL(A) Negative 03/20/2025 5:23 PM CDT [facility] URINE GLUCOSE, QUAL Negative Negative 03/20/2025 5:23 PM CDT [facility] URINE KETONES Negative Negative 03/20/2025 5:23 PM CDT [facility] UROBILINOGEN Normal Normal mg/dL 03/20/2025 5:23 PM CDT [facility] URINE BLOOD Negative Negative tobi/ul 03/20/2025 5:23 PM CDT [facility] URINALYSIS COLOR Yellow 03/20/20 5:23 PM CDT [facility] URINALYSIS CLARITY Clear 03/20/2025 5:23 PM CDT [facility] Urine Non-Phlebotomy Collection / Unknown 03/20/2025 4:50 PM CDT 03/20/2025 4:50 PM CDT us Ramana Petty DO URINE ORDERABLES Final Result [facility] [address] [place] [address] * XR CHEST SINGLE VIEW PORTABLE (03/20/2025 4:07 PM CDT) Anatomical Region Laterality Modality Chest N/A Computed Radiogr aphy 03/20/2025 4:07 PM CDT Impressions 03/20/2025 5:08 PM CDT IMPRESSION: 1. No acute abnormality identified. Narrative 03/20/2025 5:08 PM CDT DICTATING PHYSICIAN: Markel Mason EXAM: XR CHEST SINGLE VIEW PORTABLE DATE: 03/20/2025 4:07 PM COMPARISON: September 18, 2024 CLINICAL HISTORY: Ordering clinician listed reason for examination Left sided chest pain x 2 months. pt states pain radiates into back. denies SOB. Hx of asthma REFERRING PROVIDER: RAMANA PETTY FINDINGS: Chest single view. Normal heart size. No airspace consolidation, pneumothorax, or pleural effusion. No significant change. Procedure Note Markel Mason MD - 03/20/2025 DICTATING PHYSICIAN: Markel Mason EXAM: XR CHEST SINGLE VIEW PORTABLE DATE: 03/20/2025 4:07 PM COMPARISON: September 18, 2024 CLINICAL HISTORY: Ordering clinician listed reason for examination Leftsided chest pain x 2 months. pt states pain radiates into back. deniesSOB. Hx of asthma REFERRING PROVIDER: RAMANA PETTY FINDINGS: Chest single view. Normal heart size. No airspaceconsolidation, pneumothorax, or pleural effusion. No significant change. IMPRESSION: 1. No acute abnormality identified. us Ramana Petty DO IMG DIAGNOSTIC ORDERABL ES Final Result * TROPONIN I, HIGH SENSITIVITY (HSTRP) (03/20/2025 3:02 PM CDT) TROPONIN I, HIGH SENSITIVITY- MCLEAN <2.7 <=14.0 ng/L 03/20/2025 3:53 PM CDT [facility] Comment: High-sensitivity troponin I results are reported in ng/L making the result appear to be 1,000 times higher than the contemporary troponin I value which is reported in ng/ml. Results from [facility]. Blood Venipuncture / Unknown 03/20/2025 3:02 PM CDT 03/20/2025 3:28 PM CDT us Ramana Borrego Malinda DO CHEMISTRY ORDERABLES Fi nal Result [facility] [address] [place] [address] * CBC with Auto Differential (03/20/2025 3:02 PM CDT) Only the most recent of3 resultswithin the time period is included. WBC 5.00 4.00 - 12.00 10(3)/mcL 03/20/2025 3:32 PM CDT [facility] RBC 3.94 3.80 - 5.30 10(6)/mcL 03/20/2025 3:32 PM CDT [facility] HEMOGLOBIN (HGB) 12.3 12.0 - 15.8 g/dL 03/20/2025 3:32 PM CDT [facility] HEMATOCRIT (HCT) 36.9 36.0 - 47.0 % 03/20/2025 3:32 PM CDT [facility] MCV 93.7 82.0 - 96.0 fL 03/20/2025 3:32 PM CDT [facility] MCH 31.2 26.0 - 34.0 pg 03/20/2025 3:32 PM CDT [facility] MCHC 33.3 31.0 - 36.0 g/dL 03/20/2025 3:32 PM CDT [facility] PLATELET COUNT 176 140 - 440 10(3)/mcL 03/20/2025 3:32 PM CDT [facility] RDW 12.0 11.8 - 15.5 % 03/20/2025 3:32 PM CDT [facility] MPV 11.4 9.7 - 12.4 fL 03/20/2025 3:32 PM CDT [facility] NEUTROPHILS 53.4 47.0 - 73.0 % 03/20/2025 3:32 PM CDT [facility] LYMPHOCYTES 32.2 18.0 - 42.0 % 03/20/2025 3:32 PM CDT [facility] MONOCYTES 8.6 4.0 - 12.0 % 03/20/2025 3:32 PM CDT [facility] EOSINOPHILS 4.6 0.0 - 5.0 % 03/20/2025 3:32 PM CDT [facility] BASOPHILS 1.0 0.0 - 1.0 % 03/20/2025 3:32 PM CDT [facility] IMMATURE GRANULOCYTE 0.2 0.0 - 0.4 % 03/20/2025 3:32 PM CDT [facility] ABSOLUTE NEUTROPHILS 2.67 1.60 - 7.70 10(3)/[facility] 03/20/2025 3:32 PM CDT [facility] ABSOLUTE LYMPHOCYTES 1.61 1.30 - 3.20 10(3)/[facility] 03/20/2025 3:32 PM CDT [facility] ABSOLUTE MONOCYTES 0.43 0.20 - 1.00 10(3)/[facility] 03/20/2025 3:32 PM CDT [facility] ABSOLUTE EOSINOPHIL 0.23 0.00 - 0.40 10(3)/[facility] 03/20/2025 3:32 PM CDT [facility] ABSOLUTE BASOPHILS 0.05 0.00 - 0.10 10(3)/[facility] 03/20/2025 3:32 PM CDT [facility] ABSOLUTE IMMATURE GRANULOCYTE 0.01 0.00 - 0.03 10 (3) [facility]. 03/20/2025 3:32 PM CDT [facility] NRBC PER 100 WBC 0 03/20/20 3:32 PM CDT [facility] Blood Venipuncture / Unknown 03/20/2025 3:02 PM CDT 03/20/2025 3:28 PM CDT us Ramana Petty DO HEMATOLOGY ORDERABLES F inal Result [facility] [address] [place] [address] * (ABNORMAL) Comprehensive Metabolic Panel (Cmp) [id number] (03/20/2025 3:02 PM CDT) Only the most recent of3 resultswithin the time period is included. SODIUM 138 136 - 145 mmol/L 03/20/2025 3:48 PM CDT [facility] POTASSIUM 4.0 3.5 - 5.1 mmol/L 03/20/2025 3:48 PM CDT [facility] CHLORIDE 106 98 - 107 mmol/L 03/20/2025 3:48 PM CDT [facility] CO2, VENOUS 25 22 - 30 mmol/L 03/20/2025 3:48 PM CDT [facility] ANION GAP 11.0 <18.0 mmol/L 03/20/2025 3:48 PM CDT [facility] GLUCOSE 86 70 - 99 mg/dL 03/20/2025 3:48 PM CDT [facility] BUN 11 5 - 18 mg/dL 03/20/2025 3:48 PM CDT [facility] CREATININE, BLOOD 0.96 0.60 - 1.00 mg/dL 03/20/2025 3:48 PM CDT [facility] BUN/CREATININE RATIO 11(L) 12 - 20 ratio 03/20/2025 3:48 PM CDT [facility] TOTAL PROTEIN 6.7 6.0 - 8.0 g/dL 03/20/2025 3:48 PM CDT [facility] ALBUMIN 4.2 3.5 - 5.0 g/dL 03/20/2025 3:48 PM CDT [facility] A/G RATIO 1.7 1.0 - 2.2 03/20/2025 3:48 PM CDT [facility] CALCIUM 8.7 8.7 - 10.5 mg/dL 03/20/2025 3:48 PM CDT [facility] T BILI 0.8 0.2 - 1.2 mg/dL 03/20/2025 3:48 PM CDT [facility] SGOT (AST) 22 <43 U/L 03/20/2025 3:48 PM CDT [facility] SGPT (ALT) 9 <56 U/L 03/20/2025 3:48 PM CDT [facility] ALKALINE PHOSPHATASE 57 40 - 150 U/L 03/20/2025 3:48 PM CDT [facility] GFR, ESTIMATED >60 >=60 03/20/2025 3:48 PM CDT [facility] Comment: Creatinine Clearance is the preferred criteria for selecting drug dose adjustments in renally impaired patients. The GFR is provided as additional pertinent clinical information. GFR is reported in mL/min/1.73 sq m. Calculation based on the 2020 Chronic Kidney Disease Epidemiology Collaboration (CKD-EPI) equation refit without adjustment for race. GFR, EST. >60 >=60 025 3:48 PM CDT [facility] Comment: Creatinine Clearance is the preferred criteria for selecting drug dose adjustments in renally impaired patients. The GFR is provided as additional pertinent clinical information. GFR is reported in mL/min/1.73 sq m. Calculation based on the 2009 Chronic Kidney Disease Epidemiology Collaboration (CKD-EPI). GFR, EST. NONAFRICAN >60 >=60 03/20/2025 3:48 PM CDT [facility] Comment: Creatinine Clearance is the preferred criteria for selecting drug dose adjustments in renally impaired patients. The GFR is provided as additional pertinent clinical information. GFR is reported in mL/min/1.73 sq m. Calculation based on the 2009 Chronic Kidney Disease Epidemiology Collaboration (CKD-EPI). Blood Venipuncture / Unknown 03/20/2025 3:02 PM CDT 03/20/2025 3:28 PM CDT us Ramana Petty DO CHEMISTRY ORDERABLES Fi nal Result [facility] [address] [place] [address] * EKG 12 LEAD (03/20/2025 2:52 PM CDT) Ventricular Rate 62 BPM EXTERNAL EKG Atrial Rate 62 BPM EXTERNAL EKG P-R Interval 138 ms EXTERNAL EKG QRS Duration 92 ms EXTERNAL EKG Q-T Duration 392 ms EXTERNAL EKG QTC CALCULATION 397 ms EXTERNAL EKG P [place] 50 degrees EXTERNAL EKG R [place] 96 degrees EXTERNAL EKG T [place] 23 degrees EXTERNAL EKG 03/20/2025 2:52 PM CDT Impressions EXTERNAL EKG - 03/21/2025 4:07 PM CDT Normal sinus rhythm Rightward axis Borderline ECG When compared with ECG of 19-MAY-2023 22:15, Nonspecific T wave abnormality, improved in Inferior leads T wave inversion no longer evident in Anterior leads QT has shortened Confirmed by YAHIR HENNING ([id number]) on 03/21/2025 4:07:54 PM Narrative Procedure Note Yahir Henning MD - 03/21/2025 IMPRESSION: Normal sinus rhythm Rightward axis Borderline ECG When compared with ECG of 19-MAY-2023 22:15, Nonspecific T wave abnormality, improved in Inferior leads T wave inversion no longer evident in Anterior leads QT has shortened Confirmed by YAHIR HENNING ([id number]) on 03/21/2025 4:07:54 PM us Ramana Petty DO IMG ECG ORDERABLES Dominga l Result EXTERNAL EKG * EKG SCAN (03/20/2025 12:00 AM CDT) 03/20/2025 us Provider Scan IMG ECG ORDERABLES Final Result [facility]ULT[facility] * THYROID SCREEN WITH REFLEX (02/23/2025 2:16 PM CDT) TSH 0.949 0.300 - 5.000 mIU/L 02/23/2025 3:51 PM CDT [facility] Blood Venipuncture / Unknown 02/23/2025 2:16 PM CDT 02/23/2025 3:09 PM CDT Alonso Springer APRN, STEPHANIE CHEMISTRY ORDERA BLES Final Result Performing Organization Address City/[facility]/ZIP Co de Phone Number [facility] [address] [place] [address] * VITAMIN B12 (02/23/2025 2:16 PM CDT) VITAMIN B12 495 213 - 816 pg/mL 02/23/2025 4:04 PM CDT [facility] Blood Venipuncture / Unknown 02/23/2025 2:16 PM CDT 02/23/2025 3:08 PM CDT Alonso Springer APRN, STEPHANIE CHEMISTRY ORDERA BLES Final Result Performing Organization Address City/[facility]/ZIP Co de Phone Number [facility] [address] [place] [address] * LIPID PANEL (02/23/2025 2:16 PM CDT) CHOLESTEROL 143 <200 mg/dL 02/23/2025 3:33 PM CDT [facility] TRIGLYCERIDES 50 <150 mg/dL 02/23/2025 3:33 PM CDT [facility] HDL CHOLESTEROL 51 >40 mg/dL 3:33 PM CDT [facility] LDL 82 <130 mg/dL 02/23/2025 3:33 PM CDT [facility] [facility] VLDL 10 10 - 50 mg/dL 02/23/2025 3:33 PM CDT [facility] CHOL/HDL RATIO 2.8 0.0 - 4.4 02/23/2025 3:33 PM CDT [facility] NON-HDL CHOLESTEROL 92 <130 mg/dL 02/23/2025 3:33 PM CDT [facility] IS THE PATIENT REQUIRED TO BE FASTING? No 02/23/2025 3:33 PM CDT [facility] Blood Venipuncture / Unknown 02/23/2025 2:16 PM CDT 02/23/2025 3:08 PM CDT Alonso Springer APRN, STEPHANIE CHEMISTRY ORDERA BLES Final Result Performing Organization Address [facility]/ZIP Co de Phone Number [facility] [address] [place] [address] * FOLIC ACID (FOLATE) (02/23/2025 2:16 PM CDT) [facility] FOLATE 7.7 7.0 - 31.4 ng/mL 02/23/2025 4:04 PM CDT [facility] IS THE PATIENT REQUIRED TO BE FASTING? No 02/23/2025 4:04 PM CDT [facility] Blood Venipuncture / Unknown 02/23/2025 2:16 PM CDT 02/23/2025 3:08 PM CDT Alonso Springer APRN, STEPHANIE CHEMISTRY ORDERA BLES Final Result Performing Organization Address [facility] de Phone Number [facility] [place] [address] * CT ABDOMEN PELVIS W/ CONTRAST (01/12/2025 12:48 PM CDT) Anatomical Region Laterality Modality Abdomen N/A Computed Tomogra phy 01/12/2025 1:40 PM CDT Impressions 01/12/2025 1:43 PM CDT IMPRESSION: 1. Mild thickening of the urinary bladder wall may be related to underdistention. Correlate with urinalysis to exclude cystitis. 2. Rim enhancing centrally cystic focus in the right ovary is likely a corpus luteum cyst. Narrative 01/12/2025 1:43 PM CDT EXAM DESCRIPTION: CT ABDOMEN PELVIS W/ CONTRAST REASON FOR STUDY: Urinary pain, lower abdominal cramps that has been ongoing since seen here last month. TECHNIQUE: CT scan of the abdomen and pelvis performed with intravenous and without oral contrast using helical scanning technique with dynamic intravenous contrast injection. Reconstructed coronal and sagittal MPR images reviewed. All images stored on PACS. Automated exposure control was used as a dose optimization technique for this examination. CONTRAST TYPE/DOSE: 100mL of IOPAMIDOL 76 % IV SOLN injected via Intravenous COMPARISON: 09/13/2022. FINDINGS: LOWER CHEST: No significant pulmonary abnormalities. No effusion. LIVER: Normal size. No identified cystic or solid masses. GALLBLADDER: Unremarkable BILE DUCTS: No intrahepatic or extrahepatic ductal dilatation. SPLEEN: Normal size. No focal lesions. PANCREAS: No identified cystic or solid masses. No significant calcifications. No adjacent inflammation or peripancreatic fluid collections. Pancreatic duct not dilated. ADRENALS: Normal. KIDNEYS/URINARY TRACT: No identified significant cystic or solid masses. No visualized stones. No hydronephrosis or hydroureter. Mild prominence of the extrarenal pelves without obstructing lesion seen.. Symmetric enhancement. Mild thickening of the urinary bladder wall may be related to underdistention. Correlate with urinalysis to exclude cystitis. GI: Colonic course and caliber are normal. No wall thickening or evidence of obstruction is seen. The appendix is normal. The visualized distal esophagus is unremarkable. The stomach appears unremarkable. The small bowel is normal in course and in caliber and without wall thickening or evidence of obstruction PERITONEUM: No ascites or free air. RETROPERITONEUM: No mass or adenopathy. REPRODUCTIVE: Rim enhancing centrally cystic focus in the right ovary may be a corpus luteum cyst. There are multiple follicles in both ovaries. No gross suspicious findings in the uterus or adnexa VASCULATURE: No venous thrombosis is seen. No aneurysm or gross evidence of flow-limiting stenosis identified MUSCULOSKELETAL: Chronic bilateral L5 pars defects without anterolisthesis at this level. No aggressive bone lesion or acute fracture seen. There are multiple small chronic Schmorl's nodes in the visualized spine. OTHER: No other abnormality. THIS IS AN ELECTRONICALLY VERIFIED FINAL REPORT 01/12/2025 1:40 PM - Electronically signed by Jonah Fong M.D. MZ: PRAVEEN Report ID: [id number] Reading Location: [id number] Procedure Note Jonah Fong MD - 01/12/2025 EXAM DESCRIPTION: CT ABDOMEN PELVIS W/ CONTRAST REASON FOR STUDY: Urinary pain, lower abdominal cramps that has been ongoing since seen here last month. TECHNIQUE: CT scan of the abdomen and pelvis performed with intravenous and without oral contrast using helical scanning technique with dynamic intravenous contrast injection. Reconstructed coronal and sagittal MPR images reviewed. All images stored on PACS. Automated exposure control was used as a dose optimization technique for this examination. CONTRAST TYPE/DOSE: 100mL of IOPAMIDOL 76 % IV SOLN injected via Intravenous COMPARISON: 09/13/2022. FINDINGS: LOWER CHEST: No significant pulmonary abnormalities. No effusion. LIVER: Normal size. No identified cystic or solid masses. GALLBLADDER: Unremarkable BILE DUCTS: No intrahepatic or extrahepatic ductal dilatation. SPLEEN: Normal size. No focal lesions. PANCREAS: No identified cystic or solid masses. No significant calcifications. No adjacent inflammation or peripancreatic fluid collections. Pancreatic duct not dilated. ADRENALS: Normal. KIDNEYS/URINARY TRACT: No identified significant cystic or solid masses. No visualized stones. No hydronephrosis or hydroureter. Mild prominence of the extrarenal pelves without obstructing lesion seen.. Symmetric enhancement. Mild thickening of the urinary bladder wall may be related to underdistention. Correlate with urinalysis to exclude cystitis. GI: Colonic course and caliber are normal. No wall thickening or evidence of obstruction is seen. The appendix is normal. The visualized distal esophagus is unremarkable. The stomach appears unremarkable. The small bowel is normal in course and in caliber and without wall thickening or evidence of obstruction PERITONEUM: No ascites or free air. RETROPERITONEUM: No mass or adenopathy. REPRODUCTIVE: Rim enhancing centrally cystic focus in the right ovary may be a corpus luteum cyst. There are multiple follicles in both ovaries. No gross suspicious findings in the uterus or adnexa VASCULATURE: No venous thrombosis is seen. No aneurysm or gross evidence of flow-limiting stenosis identified MUSCULOSKELETAL: Chronic bilateral L5 pars defects without anterolisthesis at this level. No aggressive bone lesion or acute fracture seen. There are multiple small chronic Schmorl's nodes in the visualized spine. OTHER: No other abnormality. THIS IS AN ELECTRONICALLY VERIFIED FINAL REPORT 01/12/2025 1:40 PM - Electronically signed by Jonah Fong M.D. MZ: MZ Report ID: [id number] Reading Location: [place] [id number] IMPRESSION: 1. Mild thickening of the urinary bladder wall may be related to underdistention. Correlate with urinalysis to exclude cystitis. 2. Rim enhancing centrally cystic focus in the right ovary is likely a corpus luteum cyst. Ita Kwan APRN, CNP IMG CT ORDERABLES Final Result * Molecular, Vaginitis Screen (01/12/2025 10:52 AM CDT) TRICHOMONAS NOT DETECTED NOT DETECTED 01/12/2025 11:08 PM CDT [facility] BACTERIAL VAGINOSIS NOT DETECTED NOT DETECTED 01/12/2025 11:08 PM CDT [facility] MARLEY NOT DETECTED NOT DETECTED 01/12/2025 11:08 PM CDT [facility] Comment: Marley group Not detected with the following possible Marley species: Marley albicans and/or Marley tropicalis and/or Marley parapsilosis and/or Marley dubliniensis MARLEY GLABRATA NOT DETECTED NOT DETECTED 01/12/2025 11:08 PM CDT [facility] MARLEY KRUSEI NOT DETECTED NOT DETECTED 01/12/2025 11:08 PM CDT [facility] Other VAGINAL STRUCTURE / Unknown Non-Phlebotomy Collection / Unknown 01/12/2025 10:52 AM CDT 01/12/2025 11:26 AM CDT Ita Kwan APRN, CNP MICROBIOLOGY - GEN ERAL ORDERABLES Final Result [facility] [address] [place] [address], [place] * Gold Top Tube (01/12/2025 10:07 AM CDT) Blood No Phlebotomy Charged / Unknown 01/12/2025 10:07 AM CDT 01/12/2025 10:26 AM CDT us Ita Kwan APRN, CNP CHEMISTRY ORDERABL ES Final Result Performing Organization Address [facility]/[place] Co de Phone Number [facility] [address] [place] [address] * Blue Top Tube (01/12/2025 10:07 AM CDT) Blood No Phlebotomy Charged / Unknown 01/12/2025 10:07 AM CDT 01/12/2025 10:26 AM CDT us Ita Kwan APRN, CNP HEMATOLOGY ORDERAB LES Final Result Performing Organization Address [facility] Phone Number [facility] [address] [place] [address] * CHLAMYDIA & GC DNA PROBE ADULT (01/12/2025 10:02 AM CDT) CHLAMYDIA DNA NEGATIVE NEGATIVE 01/13/2025 3:35 AM CDT [facility] Comment: Presumed negative for C. trachomatis. A negative result does not preclude C. trachomatis infection because results are dependent on adequate specimen collection, absence of inhibitors, and sufficient DNA to be detected. This test was performed using GURPREET 5800 Real Time PCR. GC DNA NEGATIVE NEGATIVE 01/13/2025 3:35 AM CDT [facility] Comment: Presumed negative for N. gonorrhoeae. A negative result does not preclude N. gonorrhoeae infection because results are dependent on adequate specimen collection, absence of inhibitors, and sufficient DNA to be detected. This test was performed using GURPREET 5800 Real Time PCR. Other URINE / Unknown Non-Phlebotomy Collection / Unknown 01/12/2025 10:02 AM CDT 01/12/2025 11:42 AM CDT us Ita Kwan APRN, CNP MICROBIOLOGY - GEN ERAL ORDERABLES Final Result [facility] [address] [place] [address], * URINALYSIS REFLEX IF INDICATED BY ABNORMAL RESULTS (01/12/2025 10:02 AM CDT) SPECIFIC GRAVITY 1.010 1.003 - 1.030 01/12/2025 11:08 AM CDT [facility] URINE PH 7.0 5.0 - 9.0 01/12/2025 11:08 AM CDT [facility] WBC ESTERASE Negative Negative 01/12/2025 11:08 AM CDT [facility] NITRITE Negative Negative 01/12/2025 11:08 AM CDT [facility] PROTEIN, RANDOM URINE Negative Negative 01/12/2025 11:08 AM CDT [facility] URINE GLUCOSE, QUAL Negative Negative 01/12/2025 11:08 AM CDT [facility] URINE KETONES Negative Negative 01/12/2025 11:08 AM CDT [facility] UROBILINOGEN Normal Normal mg/dL 01/12/2025 11:08 AM CDT [facility] URINE BLOOD Negative Negative tobi/ul 01/12/2025 11:08 AM CDT [facility] URINALYSIS COLOR Yellow 01/13/20 11:08 AM CDT [facility] URINALYSIS CLARITY Slightly Cloudy 01/12/2025 11:08 AM CDT [facility] Urine URINE SPECIMEN OBTAINED BY CLEAN CATCH PROCEDURE / Unknown Non-Phlebotomy Collection / Unknown 01/12/2025 10:02 AM CDT 01/12/2025 10:25 AM CDT us Martinez Dewey MD URINE ORDERABLES Final R esult [facility] [address] [place] [address] * POCT Urine HCG () (01/12/2025 10:00 AM CDT) POC URINE Negative POC URINE CONTROL Continuous Improvement Director Pass Urine 01/12/2025 10:0 0 AM CDT Martinez Dewey MD POINT OF CARE TESTING (M ANUAL) Final Result * HEPATITIS PANEL ACUTE (AHP) (2023 12:00 AM KILN HAND) 2023 us Provider Scan HEMATOLOGY ORDERABLES Final Resu lt SCAN * PATHOLOGY CYTOLOGY COOKER CASING (04/28/2022 12:00 AM KILN HAND) 04/28/2022 Provider Scan PATHOLOGY/CYTOLOGY ORDERABLES Fi nal Result SCAN from Last 3 Months or Most Recently Relevant to Health Maintenance Insurance MEDICAID [place] MED[place] [employer] Care Teams Shaker Washer Relationship Specialty Start Date End Date Alonso Springer APRN, STEPHANIE [address] [address] PCP - General Advanced Practice Nurse 02/23/25
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
--- OUTSIDE RECORDS SUMMARY | 2025-03-26 10:18 | XMS_ITS | Encounter Summary ---
Author Organization [facility] Address [address] [facility] [place] [address] Phone Care Team Providers Care [employer] Founder Name Role Phone Ant Gtz MD Primary Care Provider [phone] Alonso Springer APRN, CNP Primary Care Pr ovider Reason for Visit * Reason Comments Medication Refill Encounter Details Date Type Department Care Team (Late st Contact Info) Description 12/14/2023 Refill [facility] [address]2 [place] [id number] Ant Gtz MD [address] [address] Medication Refill Social History Tobacco Use Types Packs/Day Years Used Date Smoking Tobacco: Never Smokeless Tobacco: Never Alcohol Use Standard Drinks/Week Comments Yes 0 (1 standard drink = 0.6 oz pur e alcohol) Couple times a year [facility] Utilities Answer Date Recorded In the past 12 months has [employer], gas, oil, or water company threatened to [...] often do you attend chur ch or confucianist services? More than 4 times per year 09/09/2023 Do you belong to any clubs o r organizations such as muslim groups, unions, fraternal or athletic groups, or [...] Total Score - Questions 1-9 0 09/20 [facility] of Occupat ional Health - Occupational Stress [...] place to sleep or slept in a detention (including now)? No 09/09/2023 Sexually Active Control [...] Telephone Encounter - Manisha Spencer RN - 12/14/2023 11:58 AM CDT PDMP 11/04/23 - 10 days Medication failed the protocol, provider to review and approve the medication order if appropriate. Requested Prescriptions Pending Prescriptions Disp Refills LORazepam (ATIVAN) 1 MG Tablet [Pharmacy Med Name: LORAZEPAM 1 MG TABLET] 30 Tablet 0 Sig: TAKE 1 TABLET BY MOUTH THREE TIMES A DAY NEEDED FOR ANXIETY Not Delegated - Benzodiazepines Protocol Failed - 12/14/2023 9:14 AM Failed - This refill cannot be delegated Passed - Visit with relevant provider in past 12 months or upcoming 90 days Recent Visits Date Type Provider Dept 10/08/23 Office Visit Ant Gtz MD [facility] 09/09/23 Office Visit Momo Wilks MD [facility] 08/07/23 Office Visit Nikki Cleary APRN, [facility] 06/26/23 Office Visit Alonso Springer APRN, [facility] 05/21/23 Office Visit Ant Gtz MD [facility] 04/23/23 Office Visit Ant Gtz MD [facility] 02/11/23 Office Visit Ant Gtz MD [facility] 01/30/23 Office Visit Alonso Springer APRN, CNP [facility] 01/27/23 Office Visit Ant Gtz MD [facility] Showing recent visits within past 365 days and meeting all other requirements Future Appointments No visits were found meeting these conditions. Showing future appointments within next 90 days and meeting all other requirements Refused Prescriptions Disp Refills escitalopram (LEXAPRO) 10 MG Tablet [Pharmacy Med Name: ESCITALOPRAM 10 MG TABLET] 90 Tablet 1 Sig: TAKE 1 TABLET BY MOUTH EVERY DAY SSRI (6 Month Refill Only) Protocol Failed - 12/14/2023 9:14 AM Failed - Active on medication list Passed - No test in the past 12 months or most recent test was negative Passed - No active on record Passed - Visit with relevant provider in past 6 months or upcoming 90 days Recent Visits Date Type Provider Dept 10/08/23 Office Visit Ant Gtz MD [facility] 09/09/23 Office Visit Momo Wilks MD [facility] 08/07/23 Office Visit Nikki Cleary APRN, [facility] 06/26/23 Office Visit Alonso Springer APRN, CNP [facility] Showing recent visits within past 182 days and meeting all other requirements Future Appointments No visits were found meeting these conditions. Showing future appointments within next 90 days and meeting all other requirements Passed - Patient has established therapy with SSRI for at least 6 months Passed - Has an encounter in the past 6 months with a depression, anxiety, adjustment disorder, OCD, or PTSD visit diagnosis * Telephone Encounter - Manisha Spencer RN - 12/14/2023 11:58 AM CDT Images from the original note were not included. Escitalopram Oxalate Dispensed Days Supply Quantity Provider Pharmacy ESCITALOPRAM 20 MG TABLET 10/26/2023 90 90 Each Ant Gtz MD [facility]/pharmacy #[id number] - W... documented in this encounter Plan of Treatment Upcoming Encounters Date Type Department Care Team (Late st Contact Info) Description 05/09/2025 8:45 AM PHYSICIAN SCRIBE Office Visit [facility] - Family [facility] [address] [place] [address] Alonso Springer APRN, STUDENT SUCCESS COUNSELOR [address] [address] documented as of this encounter Visit Diagnoses Diagnosis Depression, unspecified depression type Anxiety Anxiety state, unspecified documented in this encounter Additional Health Concerns Infection Onset Date Last Indicated Resolved Time COVID - 19 06/02/2024 06/02/2024 06/02/2024 9:24 PM PHYSICIAN SCRIBE Assessment Noted Time PHQ-9 Depression Total Score: 0 10/08/19 8:04 AM CDT documented as of this encounter Care Teams [employer] Founder Relationship Specialty Start Date End Date Ant Gtz MD #[address] [address] PCP - General Family Medicine 12/03/21 02/22/25 Alonso Springer APRN, STUDENT SUCCESS COUNSELOR #[address] [address] PCP - General Advanced Practice Nurse 02/23/25 documented as of this encounter
--- OUTSIDE RECORDS SUMMARY | 2025-03-26 10:18 | XMS_ITS | Encounter Summary ---
Author Organization [facility] Address [address] [facility] [place] [address] Phone Care Team Providers Care Director Business Travel Name Role Phone Ant Gtz MD Primary Care Provider [phone] Alonso Springer APRN, CNP Primary Care Pr ovider Reason for Visit * Reason Comments Medication Refill Encounter Details Date Type Department Care Team (Late st Contact Info) Description 10/24/2023 Refill [facility] [address] [place] [phone] Ant Gtz MD #[address] [address] Medication Refill Social History Tobacco Use Types Packs/Day Years Used Date Smoking Tobacco: Never Smokeless Tobacco: Never Alcohol Use Standard Drinks/Week Comments Yes 0 (1 standard drink = 0.6 oz pur e alcohol) Couple times a year [facility] Utilities Answer Date Recorded In the past 12 months has [employer], gas, oil, or water company threatened to [...] often do you attend chur ch or quaker services? More than 4 times per year [...] Total Score - Questions 1-9 0 09/20 [facility] of Occupat ional Health - Occupational Stress [...] place to sleep or slept in a skilled nursing (including now)? No 09/09/2023 Sexually Active Control [...] Patel RN - 10/25/2023 10:05 AM CDT Duplicate documented in this encounter Plan of Treatment Upcoming Encounters Date Type Department Care Team (Late st Contact Info) Description 05/09/2025 8:45 AM EPIC PROFESSIONAL Office Visit [facility] Medical Group - Family Medicine - [place] [address] [place] [address] Alonso Springer, MANAGER STATE, FISHING ROD MECHANIC [address] [address] documented as of this encounter Visit Diagnoses Diagnosis Depression, unspecified depression type Anxiety Anxiety state, unspecified documented in this encounter Additional Health Concerns Infection Onset Date Last Indicated Resolved Time COVID - 19 06/02/2024 06/02/2024 06/02/2024 9:24 PM EPIC PROFESSIONAL Assessment Noted Time PHQ-9 Depression Total Score: 0 10/08/19 8:04 AM CDT documented as of this encounter Care Teams Director Business Travel Relationship Specialty Start Date End Date Ant Gtz MD #[address] [address] PCP - General Family Medicine 12/03/21 02/22/25 Alonso Springer APRN, FISHING ROD MECHANIC #[address] [address] PCP - General Advanced Practice Nurse 02/23/25 documented as of this encounter
--- OUTSIDE RECORDS SUMMARY | 2025-03-26 10:18 | XMS_ITS | Encounter Summary ---
Author Organization [facility] Address [address] [place] [address] Phone Care Team Providers Care Merchant Tailor Name Role Phone Ant Gtz MD Primary Care Provider [phone] Alonso Springer APRN, GROUND SUPPORT EQUIPMENT FITTER Primary Care Pr ovider Reason for Visit * Reason Comments Medication Refill Encounter Details Date Type Department Care Team (Late st Contact Info) Description 10/09/2022 Refill [facility] [address] [place] [address] Tiffanie Carrington APRN, GROUND SUPPORT EQUIPMENT FITTER [address] [place] [address] Medication Refill Social History Tobacco Use Types [...] file Not on file Not on file COVID-19 Exposure Response Date Recorded In the last 10 days, have chel u been in contact with someone who was confirmed or suspected to have Coronavirus/COVID-19? No / Unsure 09/15/2022 2:44 PM CDT documented as of this encounter Miscellaneous Notes * Telephone Encounter - Manisha Spencer RN - 10/09/2022 1:31 PM CDT Medication failed the protocol, provider to review and approve the medication order if appropriate. Requested Prescriptions Pending Prescriptions Disp Refills escitalopram (LEXAPRO) 10 MG Tablet [Pharmacy Med Name: ESCITALOPRAM 10 MG TABLET] 90 Tablet 1 Sig: TAKE 1 TABLET BY MOUTH EVERY DAY SSRI (6 Month Refill Only) Protocol Failed - 10/09/2022 7:58 AM Failed - Patient has established therapy with SSRI for at least 6 months Passed - No test in the past 12 months or most recent test was negative Passed - No active on record Passed - Visit with relevant provider in past 6 months or upcoming 90 days Recent Visits Date Type Provider Dept 09/15/22 Office Visit Ant [facility] MD [facility] 08/22/22 Office Visit Alonso Springer APRN, CNP [facility] 07/28/22 Telemedicine Ant Gtz MD [facility] 07/11/22 Office Visit Tiffanie Carrington APRN, STEPHANIE [facility] Showing recent visits within past 182 days [...] st Contact Info) Description 05/09/2025 8:45 AM CONTINUOUS MINING MACHINE COAL MINER Office Visit [facility] Medical Group - Family Medicine - [place] [address] [place] [address] Alonso Springer APRN, GROUND SUPPORT EQUIPMENT FITTER #[address] [address] documented as of this encounter Visit Diagnoses Diagnosis Depression, unspecified depression type Anxiety Anxiety state, unspecified documented in this encounter Additional Health Concerns Infection Onset Date Last Indicated Resolved Time COVID - 19 06/02/2024 06/02/2024 06/02/2024 9:24 PM CONTINUOUS MINING MACHINE COAL MINER documented as of this encounter Care Teams Merchant Tailor Relationship Specialty Start Date End Date Ant Gtz MD #[address] [address] PCP - General Family Medicine 12/03/21 02/22/25 Alonso Springer APRN, GROUND SUPPORT EQUIPMENT FITTER #[address] [address] PCP - General Advanced Practice Nurse 02/23/25 documented as of this encounter
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
--- OUTSIDE RECORDS SUMMARY | 2025-03-26 10:19 | XMS_ITS | Data Portability ---
Author Organization [facility] Address [address] [place] [address] [place] [address] Care Team Providers Care Position Classification Manager Name Role Phone NADIYA GUTIERREZ Primary Care Provider [phone] Assessment Encounter Date Assessment Date Assessment LastModified by Organization Details LastModified Time 06/02/2023 06/02/2023 Annual gynecological exam performed. Patient will come back in a year unless there are new symptoms. [email or web address] Not available 06/02/2023 09:40:16 Plan of Treatment Reminders Order Date Submit Date Provider Last Modified By Organization Details Last Modified Time Details Appointments None recorded. Lab urinalysis, dipstick 2022 023 [email or web address] [address], [address], [place], [address], 3 13:02:04 urinalysis, dipstick 2022 023 [email or web address] 1 [address], [address], [place], [address], 3 18:25:52 Referral None recorded. Procedures None recorded. Surgeries None recorded. Imaging US, pelvis 2022 023 [email or web address] [address], [address], [place], [address], 3 23:03:10 US, transvagina l 2022 023 [email or web address] [address], [address], [place], [address], 3 23:03:10 Medication Orders metronidazo le 500 mg tablet 2022 023 [email or web address] [id number], [address] [facility], [place], [address], 09:43:35 Patient TargetsNo targets recorded. Patient InstructionsNo instructions recorded. Reason for Referral None Reported. Results Created Date Observation Date Name Description Value Unit Range Abnormal Flag Note LastModifiedBy Organization Detail LastModifiedTime 11/07/1911/06/2022 URINA LYSIS , WITH MICRO SCOPI C, REFLE X CULTU RE color, urine Light Yellow Not Available [facility] (Lab) [address] [place], [address], 11/08/2022 06:53:47 11/07/19 23 11/06/2022 URINA LYSIS , WITH MICRO SCOPI C, REFLE X CULTU RE clarity, urine Clear Not Available [facility] (Lab) [address] [place], [address], 11/08/2022 06:53:47 11/07/19 23 11/06/2022 URINA LYSIS , WITH MICRO SCOPI C, REFLE X CULTU RE specific gravity, urine 1.010 . 1.005- 1.035 Not Available [facility] (Lab) [address] [place], [address], 11/08/2022 06:53:47 11/07/19 23 11/06/2022 URINA LYSIS , WITH MICRO SCOPI C, REFLE X CULTU RE pH, urine 6.5 . 5.0-7. 0 Not Available [facility] (Lab) [address] [place], [address], 11/08/2022 06:53:47 11/07/19 23 11/06/2022 URINA LYSIS , WITH MICRO SCOPI C, REFLE X CULTU RE protein, UA Negati ve mg/dL negati ve, 10-20 Not Available [facility] (Lab) [address] [facility], [place], [address], 11/08/2022 06:53:47 11/07/19 23 11/06/2022 URINA LYSIS , WITH MICRO SCOPI C, REFLE X CULTU RE glucose, urine Normal mg/dL negati ve Not Available [facility] (Lab) [address] [facility], [place], [address], 11/08/2022 06:53:47 11/07/19 23 11/06/2022 URINA LYSIS , WITH MICRO SCOPI C, REFLE X CULTU RE ketones, urine Negati ve mg/dL negati ve Not Available [facility] (Lab) [address] [facility], [place], [address], 11/08/2022 06:53:47 11/07/19 23 11/06/2022 URINA LYSIS , WITH MICRO SCOPI C, REFLE X CULTU RE bilirubin, urine Negati ve negati ve Not Available [facility] (Lab) [address] [place], [address], 11/08/2022 06:53:47 11/07/19 23 11/06/2022 URINA LYSIS , WITH MICRO SCOPI C, REFLE X CULTU RE blood, urine Negati ve negati ve Not Available [facility] (Lab) [address] [facility], [place], [address], 11/08/2022 06:53:47 11/07/19 23 11/06/2022 URINA LYSIS , WITH MICRO SCOPI C, REFLE X CULTU RE nitrite, urine Negati ve negati ve Not Available [facility] (Lab) [address] [place], [address], 11/08/2022 06:53:47 11/07/19 23 11/06/2022 URINA LYSIS , WITH MICRO SCOPI C, REFLE X CULTU RE leukocyte esterase, urine 75 roland/u L negati ve abnormal Not Available [facility] (Lab) [address] [facility], [place], [address], 11/08/2022 06:53:47 11/07/19 23 11/06/2022 URINA LYSIS , WITH MICRO SCOPI C, REFLE X CULTU RE urobilinogen , urine Normal mg/dL normal , <2.0 Not Available [facility] (Lab) [address] [facility], [place], [address], 11/08/2022 06:53:47 11/07/19 23 11/06/2022 URINA LYSIS , WITH MICRO SCOPI C, REFLE X CULTU RE RBC, urine 0-2 /hpf none, 0-2 Not Available [facility] (Lab) [address] [facility], [place], [address], 11/08/2022 06:53:47 11/07/19 23 11/06/2022 URINA LYSIS , WITH MICRO SCOPI C, REFLE X CULTU RE WBC, urine 0-5 /hpf none, 0-5 Not Available [facility] (Lab) [address] [facility], [place], [address], 11/08/2022 06:53:47 11/07/19 23 11/06/2022 URINA LYSIS , WITH MICRO SCOPI C, REFLE X CULTU RE squamous epithelial cells, urine Trace /hpf none abnormal Not Available [facility] (Lab) [address] [facility], [place], [address], 11/08/2022 06:53:47 11/07/19 23 11/06/2022 URINA LYSIS , WITH MICRO SCOPI C, REFLE X CULTU RE bacteria, urine None /hpf none Not Available [facility] (Lab) [address] [facility], [place], [address], 11/08/2022 06:53:47 11/07/19 23 11/06/2022 URINA LYSIS , WITH MICRO SCOPI C, REFLE X CULTU RE hyaline cast, urine None /lpf none, 0-2 Urine Cultu re to follo w. Not Available [facility] (Lab) [address] [facility], [place], [address], 11/08/2022 06:53:47 11/07/19 23 11/06/2022 CT/GC AND TRICH OMONA S VAGIN ROBERTO (RRNA ), URINE chlamydia trachomatis, PCR Negati ve negati ve Not Available [facility] (Lab) [address] [facility], [place], [address], 11/08/2022 06:53:48 11/07/19 23 11/06/2022 CT/GC AND TRICH OMONA S VAGIN ROBERTO (RRNA ), URINE neisseria gonorrhoeae, PCR Negati ve negati ve Not Available [facility] (Lab) [address] [facility], [place], [address], 11/08/2022 06:53:48 11/07/1911/06/2022 CT/GC AND TRICH OMONA S VAGIN ROBERTO (RRNA ), URINE trichomonas vaginalis ribosomal RNA (rrna) Negati ve negati ve Not Available [facility] (Lab) [address] [facility], [place], [address], 11/08/2022 06:53:48 11/07/1911/06/2022 CULTU RE: URINE result report SEE RESULT S BELOW Test: Cultu re: Urine Speci men Type: Urine Speci men Date: 2022 3:46 PM Resul t Date: 2022 5:48 AM Resul t Statu s: Final resul t Abnor mal: No Resul ting Lab: [facility] [address] [facility] [address] Tel: CULTU RE ----- ----- ----- --- No growt h in 1 day (dete ction level of 10,00 0 colon ies / ml.) Not Available [facility] (Lab) [address] [facility], [place], [address], 11/08/2022 06:53:48 11/07/19 23 11/06/2022 urina lysis , dipst ick Leukocytes + Not Available [facility] [address], [place], [address], 11/06/2022 14:13:25 11/07/19 23 11/06/2022 urina lysis , dipst ick Protein trace Not Available [facility] [address], [place], [address], 11/06/2022 14:13:25 11/07/19 23 11/06/2022 urina lysis , dipst ick pH 6 Not Available [facility] [address], [place], [address], 11/06/2022 14:13:25 11/07/19 23 11/06/2022 urina lysis , dipst ick Blood + Not Available [facility] [address], [place], [address], 11/06/2022 14:13:25 11/07/19 23 11/06/2022 urina lysis , dipst ick Specific [place] 1.005 Not Available [facility] [address], [place], [address], 11/06/2022 14:13:25 11/26/19 23 11/25/2022 urina lysis , dipst ick Leukocytes trace Not Available [facility] [address], [place], [address], 11/25/2022 18:21:49 11/26/19 23 11/25/2022 urina lysis , dipst ick Protein trace Not Available [address], [place], [address], 11/25/2022 18:21:49 11/26/19 23 11/25/2022 urina lysis , dipst ick pH 5 Not Available [facility], [place], [address], 11/25/2022 18:21:49 11/26/19 23 11/25/2022 urina lysis , dipst ick Blood + Not Available [address], [place], [address], 11/25/2022 18:21:49 11/26/19 23 11/25/2022 urina lysis , dipst ick Specific [place] 1.015 Not Available [facility] [address], [place], [address], 11/25/2022 18:21:49 12/20/19 23 12/19/2022 URINA LYSIS , WITH MICRO SCOPI C, REFLE X CULTU RE color, urine Yellow Not Available [facility] (Lab) [address] [place], [address], 12/20/2022 12:43:46 12/20/19 23 12/19/2022 URINA LYSIS , WITH MICRO SCOPI C, REFLE X CULTU RE clarity, urine Turbid abnormal Not Available [facility] (Lab) [address], [place], [address], 12/20/2022 12:43:46 12/20/19 23 12/19/2022 URINA LYSIS , WITH MICRO SCOPI C, REFLE X CULTU RE specific gravity, urine 1.026 . 1.005- 1.035 Not Available [facility] (Lab) [address] [facility], [place], [address], 12/20/2022 12:43:46 12/20/19 23 12/19/2022 URINA LYSIS , WITH MICRO SCOPI C, REFLE X CULTU RE pH, urine 6.0 . 5.0-7. 0 Not Available [facility] (Lab) [address] [place], [address], 12/20/2022 12:43:46 12/20/19 23 12/19/2022 URINA LYSIS , WITH MICRO SCOPI C, REFLE X CULTU RE protein, UA 20 mg/dL negati ve, 10-20 Not Available [facility] (Lab) [address] [facility], [place], [address], 12/20/2022 12:43:46 12/20/19 23 12/19/2022 URINA LYSIS , WITH MICRO SCOPI C, REFLE X CULTU RE glucose, urine Normal mg/dL negati ve Not Available [facility] (Lab) [address] [facility], [place], [address], 12/20/2022 12:43:46 12/20/19 23 12/19/2022 URINA LYSIS , WITH MICRO SCOPI C, REFLE X CULTU RE ketones, urine Negati ve mg/dL negati ve Not Available [facility] (Lab) [address] [facility], [place], [address], 12/20/2022 12:43:46 12/20/19 23 12/19/2022 URINA LYSIS , WITH MICRO SCOPI C, REFLE X CULTU RE bilirubin, urine Negati ve negati ve Not Available [facility] (Lab) [address] [facility], [place], [address], 12/20/2022 12:43:46 12/20/19 23 12/19/2022 URINA LYSIS , WITH MICRO SCOPI C, REFLE X CULTU RE blood, urine Negati ve negati ve Not Available [facility] (Lab) [address] [facility], [place], [address], 12/20/2022 12:43:46 12/20/19 23 12/19/2022 URINA LYSIS , WITH MICRO SCOPI C, REFLE X CULTU RE nitrite, urine Negati ve negati ve Not Available [facility] (Lab) [address] [place], [address], 12/20/2022 12:43:46 12/20/19 23 12/19/2022 URINA LYSIS , WITH MICRO SCOPI C, REFLE X CULTU RE leukocyte esterase, urine Negati ve roland/u L negati ve Not Available [facility] (Lab) [address] [facility], [place], [address], 12/20/2022 12:43:46 12/20/19 23 12/19/2022 URINA LYSIS , WITH MICRO SCOPI C, REFLE X CULTU RE urobilinogen , urine Normal mg/dL normal , <2.0 Not Available [facility] (Lab) [address] [facility], [place], [address], 12/20/2022 12:43:46 12/20/19 23 12/19/2022 URINA LYSIS , WITH MICRO SCOPI C, REFLE X CULTU RE RBC, urine 0-2 /hpf none, 0-2 Not Available [facility] (Lab) [address] [facility], [place], [address], 12/20/2022 12:43:46 12/20/19 23 12/19/2022 URINA LYSIS , WITH MICRO SCOPI C, REFLE X CULTU RE WBC, urine 0-5 /hpf none, 0-5 Not Available [facility] (Lab) [address] [facility], [place], [address], 12/20/2022 12:43:46 12/20/19 23 12/19/2022 URINA LYSIS , WITH MICRO SCOPI C, REFLE X CULTU RE squamous epithelial cells, urine Few /hpf none abnormal Not Available [facility] (Lab) [address] [facility], [place], [address], 12/20/2022 12:43:46 12/20/19 23 12/19/2022 URINA LYSIS , WITH MICRO SCOPI C, REFLE X CULTU RE bacteria, urine None /hpf none Not Available [facility] (Lab) [address] [facility], [place], [address], 12/20/2022 12:43:46 12/20/19 23 12/19/2022 URINA LYSIS , WITH MICRO SCOPI C, REFLE X CULTU RE hyaline cast, urine None /lpf none, 0-2 Not Available [facility] (Lab) [address] [facility], [place], [address], 12/20/2022 12:43:46 12/20/19 23 12/19/2022 URINA LYSIS , WITH MICRO SCOPI C, REFLE X CULTU RE transitional epithelial cells 0-2 /hpf none abnormal Not Available [facility] (Lab) [address] [facility], [place], [address], 12/20/2022 12:43:46 12/20/19 23 12/19/2022 URINA LYSIS , WITH MICRO SCOPI C, REFLE X CULTU RE mucus, urine TNTC /hpf none, trace, few abnormal Urine Cultu re not perfo rmed per refle x harinder col. Not Available [facility] (Lab) [address] [facility], [place], [address], 12/20/2022 12:43:46 12/20/19 23 12/19/2022 CT/GC AND TRICH OMONA S VAGIN ROBERTO (RRNA ), SWAB chlamydia trachomatis, PCR NEGATI VE negati ve Not Available [facility] (Lab) [address] [facility], [place], [address], 12/20/2022 12:43:47 12/20/19 23 12/19/2022 CT/GC AND TRICH OMONA S VAGIN ROBERTO (RRNA ), SWAB neisseria gonorrhoeae, PCR NEGATI VE negati ve Not Available [facility] (Lab) [address] [facility], [place], [address], 12/20/2022 12:43:47 12/20/19 23 12/19/2022 CT/GC AND TRICH OMONA S VAGIN ROBERTO (RRNA ), SWAB trichomonas vaginalis ribosomal RNA (rrna) NEGATI VE negati ve Not Available [facility] (Lab) [address] [facility], [place], [address], 12/20/2022 12:43:47 12/20/19 23 12/19/2022 urina lysis , dipst ick Leukocytes trace Not Available [facility] [address], [place], [address], 12/19/2022 13:01:28 12/20/19 23 12/19/2022 urina lysis , dipst ick Urobilinogen + Not Available [facility] [address], [place], [address], 12/19/2022 13:01:28 12/20/19 23 12/19/2022 urina lysis , dipst ick Protein trace Not Available [facility] [address], [place], [address], 12/19/2022 13:01:28 12/20/19 23 12/19/2022 urina lysis , dipst ick pH 5 Not Available [facility] [address], [place], [address], 12/19/2022 13:01:28 12/20/19 23 12/19/2022 urina lysis , dipst ick Blood trace Not Available [facility] [address], [place], [address], 12/19/2022 13:01:28 12/20/19 23 12/19/2022 urina lysis , dipst ick Specific [place] 1.020 Not Available [facility] [address], [place], [address], 12/19/2022 13:01:28 05/22/20 23 05/22/2023 CT/GC AND TRICH OMONA S VAGIN ROBERTO (RRNA ), SWAB chlamydia trachomatis, PCR Negati ve negati ve Not Available [facility] (Lab) [address], [place], [address], 05/25/2023 12:39:33 05/22/20 23 05/22/2023 CT/GC AND TRICH OMONA S VAGIN ROBERTO (RRNA ), SWAB neisseria gonorrhoeae, PCR Negati ve negati ve Not Available [facility] (Lab) [address] [facility], [place], [address], 05/25/2023 12:39:33 05/22/20 23 05/22/2023 CT/GC AND TRICH OMONA S VAGIN ROBERTO (RRNA ), SWAB trichomonas vaginalis ribosomal RNA (rrna) Negati ve negati ve Not Available [facility] (Lab) [address] [facility], [place], [address], 05/25/2023 12:39:33 05/22/20 23 05/22/2023 VAGIN ITIS/ VAGIN OSIS, DNA PROBE brodie sp. detection, direct probe Negati ve negati ve Not Available [facility] (Lab) [address] [facility], [place], [address], 05/25/2023 12:39:33 05/22/20 23 05/22/2023 VAGIN ITIS/ VAGIN OSIS, DNA PROBE gardnerella vag. detection, direct probe Positi ve negati ve abnormal Not Available [facility] (Lab) [address] [facility], [place], [address], 05/25/2023 12:39:33 05/22/20 23 05/22/2023 VAGIN ITIS/ VAGIN OSIS, DNA PROBE trichomonas vag. detection, direct probe Negati ve negati ve Not Available [facility] (Lab) [address] [facility], [place], [address], 05/25/2023 12:39:33 06/02/20 23 06/02/2023 IMAGE GUIDE D PAP, REFLE X HPV IF ASCUS ONLY image guided Pap, reflex HPV ASCUS only SEE RESULT S BELOW CASE REPOR T: Cytol ogy Gynec ologi charo Repor t Case: [id number] Autho kathy marquis Provi lo: Quan Self Colle cted: 06/02 1240 CREDENTIALER Order ing Locat ion: [place] Patho lognate Recei dave: 06/03 0809 First Scree n: Truong chew, Rekha mcelroy, CT Speci men: Scree leidy Pap - Image d, Cervi x STATE MENT OF ADEQU ACY: Satis facto ry for evalu ation Trans forma tion zone compo nent prese nt Parti ally obscu ring lubri cant prese nt. FINAL DIAGN OSIS: Negat america for Intra epith elial Lesio n or Lucian gonzalez (NIL) . Elect jonathanjesse sinclair marly d by Truong chew, Rekha mcelroy, CT on 06/04 at 9:51 PM ----- ----- ----- ----- ----- ----- ----- ----- ----- ----- ----- ----- ----- ----- ----- ----- ----- ---- COMME NT: This speci men was revie wed by a Cytot echno logis t and/o r Patho logis t (as indic ated in this repor t) after evalu ation using the Thinp rep Imagi ng Syste m. CLINI CHARO INFOR MATIO N: Menst rual Statu s: LMP (if appli cable ): 05/12 Clini charo Histo ry/Pr celestinou s Pap: Type of Neopl toby (if appli cable ): Signi fican t Clini charo Findi ngs: Other Histo ry: Hormo trevor (if appli cable ): PAP EDUCA GARTH L NOTE: The Pap Test is a scree leidy test with an inher ent false negat america rate. Liqui d-bas ed sampl ing may decre ase, but will not elimi augustin, false negat america resul ts. A negat america resul t does not precl ude the prese nce and/o r devel opmen t of disea se, since the prese nce of abnor mal cells in the sampl e depen ds on the locat ion of the lesio n and sampl ing techn ique. Magnus nued regul ar scree leidy is the best metho d of cance r preve ntion . If repor dell cytol ogic findi ng do not corre late with physi charo and/o r histo rical findi ngs, furth er inves tigat ion is recom kilo d, as clini guzman carlos nted. Not Available [facility] (Lab) [address], [place], [address], 06/04/2023 22:55:23 12/27/19 23 12/26/2022 US, pelvi s No observ ation record ed. [address], [place], [address], 05/22/2023 13:43:40 12/27/19 23 12/26/2022 US, trans vagin al No observ ation record ed. [address], [place], [address], 05/22/2023 13:43:40 12/27/19 23 12/26/2022 US, pelvi s No observ ation record ed. [place] [address] [address], [place], [address], 05/22/2023 13:43:40 Result Notes None recorded. Problems Name Problem SNOMED Code Status Onset Date Resolution Date Notes Provider Name and Address Organization Details Recorded Time Asthma 355209614 Completed Albutero l 2x/wk Bridget santos [facility] 0 17:28:06 Nausea and vomiting 40841364 Completed Severe Bridget santos [facility] 0 17:28:06 Gestatio nal diabetes mellitus 16186602 Completed 5 mg gllyburi de qhs Bridget santos [facility] 0 17:28:06 Educatio n Completed 201207/25/2020 Other general counseli ng and advice on contrace ptive manageme nt;Recor ded Elsewher e: No Locat ion: [facility] S ource: EHR Word Processing Operator comfort: N Practi ce ID: [id number] Howard lable Time: 02:30:00 PM Bridget [facility], [facility] 21:26:45 Family planning surveill ance Completed 201207/25/2020 Surveill ance of other contrace ptive method;R ecorded Elsewher e: No Locat ion: [facility] S ource: EHR Word Processing Operator comfort: N Practi ce ID: [id number] Howard lable Time: 02:00:00 PM Bridget [facility], [facility] 21:26:49 Speciali zed medical examinat ion Completed 201307/25/2020 Other specifie d chlamydi al diseases ;Recorde d Elsewher e: No Locat ion: [facility] S ource: EHR Word Processing Operator comfort: N Practi ce ID: [id number] Howard lable Time: 03:30:00 PM Br[facility], [facility] 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 21:28:02 Venereal disease screenin g Completed 201307/25/2020 Screenin g examinat ion for venereal disease; Recorded Elsewher e: No Locat ion: [facility] S ource: EHR Word Processing Operator comfort: N Practi ce ID: [id number] Howard lable Time: 03:30:00 PM Bridget Britni tom [facility] 21:28:21 Adult health examinat ion Completed 201407/25/2020 Routine Medical Exam;Rec orded Elsewher e: No Locat ion: Mauricio jo [facility] S ource: EHR Word Processing Operator comfort: N Conradti ce ID: [id number] Howard lable Time: 10:30:00 AM Bridget Ryder tom [facility] 21:26:28 Vaginiti s and vulvovag initis Completed 201407/25/2020 Vaginiti s;Record ed Elsewher e: No Locat ion: [facility] S ource: EHR Word Processing Operator comfort: N Conradti ce ID: [id number] Howard lable Time: 10:30:00 AM Bridget Ryder tom [facility] 21:28:16 Leukorrh ea [id number] Completed 201407/25/2020 Leukorrh ea, not specifie d as infectiv e;Record ed Elsewher e: No Locat ion: [facility] S ource: EHR Word Processing Operator comfort: N Conradti ce ID: [id number] Howard lable Time: 10:30:00 AM Bridget Ryder tom [facility] 21:27:24 Well child [id number] Completed 201407/25/2020 ROUTIN CHILD HEALTH EXAM;Rec orded Elsewher e: No Locat ion: [facility] S ource: EHR Word Processing Operator comfort: N Conradti ce ID: [id number] Howard lable Time: 09:00:00 AM Bridget Ryder tom [facility] 21:28:23 Implanta tion of subcutan eous contrace ptive Completed 201407/25/2020 Insertio n of implanta ble subderma l contrace ptive;Re corded Elsewher e: No Locat ion: [facility] S ource: EHR Word Processing Operator comofrt: N Conradti ce ID: [id number] Howard lable Time: 03:15:00 PM Bridget Ryder tom [facility] 21:27:[address] Concept Completed 201407/25/2020 Encounte r for surveill ance of other contrace ptives;R ecorded Elsewher e: No [facility]: [facility] Word Processing Operator comfort: N Conradti ce ID: [id number] Howard lable Time: 03:15:00 PM Bridget Ryder tom [facility] 21:28:00 Procedur e by method Completed 201507/25/2020 Encounte r for other general counseli ng and advice on contrace ption;Re corded Elsewher e: No Locat ion: Parag osorio [facility] S ource: EHR Word Processing Operator comfort: N Conradti ce ID: [id number] Howard lable Time: 03:30:00 PM Bridget Ryder tom [facility] 21:26:43 Female genitali a finding Completed 201507/25/2020 Foreign body in vagina, initial encounte r;Record ed Elsewher e: No [facility]: EHR Word Processing Operator comfort: N Conradti ce ID: [id number] Howard lable Time: 09:00:00 AM Bridget Ryder tom [facility] 21:26:51 Microsco pic hematuri a [id number] Completed 201507/25/2020 Other microsco pic hematuri a;Record ed Elsewher e: No Locat ion: [facility] S ource: EHR Word Processing Operator comfort: N Conradti ce ID: 0001 Howard lable Time: 09:00:00 AM Bridget Ryder tom [facility] 21:27:29 Vaginola bial hernia Completed 201507/25/2020 Other specifie d noninfla mmatory disorder s of vagina;R ecorded Elsewher e: No Locat ion: [facility] S ource: EHR Word Processing Operator comfort: N Conradti ce ID: 0001 Howard lable Time: 09:00:00 AM Bridget santos, [facility] 21:28:19 Pelvic and perineal pain [id number] Completed 201507/25/2020 Pelvic pain;Rec orded Elsewher e: No Locat ion: [facility] Conradti ce ID: 0001 Howard lable Time: 10:00:00 AM Bridget Ryder [facility] 21:27:33 Contrace ptive sheath status [id number] Completed 201507/25/2020 Encounte r for initial rx of other contrace ptive;Re corded Elsewher e: No Locat ion: [facility] N Conradti ce ID: 0001 Howard lable Time: 06:15:00 PM [facility] 21:26:38 Secondar y amenorrh ea [id number] Completed 201507/25/2020 Secondar y amenorrh ea;Recor ded Elsewher e: No [facility]: EHR Word Processing Operator comfort: N Conradti ce ID: 0001 Howard lable Time: 03:00:00 PM [facility] 21:27:50 Syphilis test finding [id number] Completed 201507/25/2020 Encntr screen for infectio ns w sexl mode of transmis s;Record ed Elsewher e: No Locat ion: [facility] S ource: [facility] Word Processing Operator comfort: N Practi ce ID: 0001 Howard lable Time: 03:00:00 PM Bridget santos [facility] 21:28:06 Pregnanc y, childbir th and puerperi um finding Completed 201607/25/2020 Encounte r for supervis ion of normal 1st pregnanc y, 1st trimeste r;Record ed Elsewher e: No Locat ion: [facility] S ource: EHR Word Processing Operator comfort: N Celeste ce ID: 0001 Howard lable Time: 02:00:00 PM Bridget santos, [facility] 21:27:40 Pregnanc y, childbir th and puerperi um finding Completed 201607/25/2020 Encntr for suprvsn of normal first preg, second trimeste r;Record ed Elsewher e: No [facility]ce: EHR Word Processing Operator comfort: N Celeste ce ID: 0001 Howard lable Time: 10:45:00 AM Bridget santos, [facility] 21:27:42 finding Completed 201607/25/2020 Matern care for oth or susp poor fetl grth, third tri, unsp;Rec orded Elsewher e: No Locat ion: [facility] S ource: EHR Word Processing Operator comfort: N Celeste ce ID: 0001 Howard lable Time: 11:30:00 AM Bridget santos, [facility] 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 21:27:03 Pregnanc y, childbir th and puerperi um finding Completed 201607/25/2020 Encounte r for supervis ion of normal first pregnanc y, third trimeste r;Record ed Elsewher e: No Locat ion: Parag osorio [facility] S ource: EHR Word Processing Operator comfort: N Practi ce ID: 0001 Howard lable Time: 04:00:00 PM Bridget santos, [facility] 21:27:[address] Concept Completed 201607/25/2020 Decrease d movement s, third trimeste r, unsp;Pra ctice ID: 0001 Bridget santos, [facility] 21:27:55 Gestatio n period, 36 weeks [id number] Completed 201607/25/2020 36 weeks gestatio n of pregnanc y;Practi ce ID: 0001 Bridget santos, [facility] 21:27:06 Uterine size for dates discrepa ncy Completed 201607/25/2020 Uterine size-makayla e discrepa ncy, third trimeste r;Practi ce ID: 0001 Bridget santos, [facility] 21:28:14 Gestatio n period, 37 weeks [id number] Completed 201607/25/2020 37 weeks gestatio n of pregnanc y;Practi ce ID: 0001 Bridget santos, [facility] 21:27:08 Term pregnanc y delivere d [id number] Completed 201607/25/2020 Encounte r for full-ter m uncompli cated delivery ;Practic e ID: 0001 Bridget santos, [facility] 21:28:08 Single live from singleto n pregnanc y [id number] Completed 201607/25/2020 Single live ;Pr actice ID: 0001 Bridget santos, [facility] 21:27:53 Gestatio n period, 39 weeks [id number] Completed 201607/25/2020 39 weeks gestatio n of pregnanc y;Practi ce ID: 0001 Bridget santos, [facility] 21:27:10 Lochia finding Completed 201607/25/2020 Encounte r for routine postpart um follow-u p;Practi ce ID: 0001 Bridget santos, [facility] 21:27:26 Procedur e Completed 201607/25/2020 Enctr srvlnc implanta ble subderma l contrace ptive;Pr actice ID: 0001 [facility], [facility] 21:27:46 Pregnanc y test negative [id number] Completed 201607/25/2020 Encounte r for pregnanc y test, result negative ;Practic e ID: 0001 Bridget santos, [facility] 21:27:37 Noninfec tious enteriti s of intestin e Completed 201707/25/2020 Gastroen teritis; Recorded Elsewher e: No Locat ion: Parag osorio [facility] S ource: EHR Word Processing Operator comfort: N Practi ce ID: 0001 Howard lable Time: 05:15:00 PM Bridget santos, [facility] 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 21:27:58 Screenin g for malignan t neoplasm of cervix Completed 201707/25/2020 Encounte r for screenin g for malignan t neoplasm of cervix;R ecorded Elsewher e: No [facility]ce: EHR Word Processing Operator comfort: N Practi ce ID: 0001 Howard lable Time: 05:15:00 PM Bridget Ryder tom, [facility] 21:27:48 Atypical squamous cells of undeterm ined signific ance on cervical Papanico laou smear [id number] Completed 201701/16/2021 Atyp squam cell of undet signfc cyto smr crvx (ASC-US) ;Practic e ID: 0001 [facility], [facility] 09:50:16 Dysuria [id number] Completed 201707/25/2020 Dysuria; Practice ID: 0001 [facility], [facility] 21:26:41 Infectio n screenin g Completed 201807/25/2020 Encounte r for screenin g for oth infec/pa rastc diseases ;Recorde d Elsewher e: No Locat ion: [facility] S ource: EHR Word Processing Operator comfort: N Practi ce ID: 0001 Howard lable Time: 11:00:00 AM Bridget Ryder tom [facility] 21:27:14 Acute vaginiti s [id number] Completed 201807/25/2020 Acute vaginiti s;Practi ce ID: 0001 [facility], [facility] 21:26:26 Pregnanc y detectio n examinat ion Completed 201807/25/2020 Encounte r for pregnanc y test, result positive ;Recorde d Elsewher e: No Locat ion: [facility] S ource: EHR Word Processing Operator comfort: N Practi ce ID: 0001 Howard lable Time: 03:00:00 PM [facility] 21:27:35 Uterine size for dates discrepa ncy Completed 201807/25/2020 Uterine size-makayla e discrepa ncy, first trimeste r;Conradti ce ID: 0001 Bridget Ryder [facility] 21:28:12 Amenorrh ea [id number] Completed 201807/25/2020 Amenorrh ea, unspecif ied;Prac noble ID: 0001 Bridget Ryder [facility] 21:26:[address] Concept Completed 201807/25/2020 Encntr for general adult medical exam w/o abnormal findings ;Practic e ID: 0001 Bridget Ryder [facility] 21:27:57 Gestatio n less than 9 weeks [id number] Completed 201807/25/2020 Less than 8 weeks gestatio n of pregnanc y;Record ed Elsewher e: No Locat ion: Parag osorio [facility] S ource: EHR Word Processing Operator comfort: N Practi ce ID: 0001 Howard lable Time: 11:30:00 [facility] 21:27:02 Finding of viabilit y of pregnanc y [id number] Completed 201807/25/2020 Pregnanc y w inconclu sive viabilit y, unsp;Pra ctice ID: 0001 Bridget Ryder [facility] 21:26:58 Finding of contents of cervix [id number] Completed 201807/25/2020 Weeks of gestatio n of pregnanc y not specifie d;Practi ce ID: 0001 Bridget Ryder [facility] 21:26:56 Evaluati on finding Completed 201807/25/2020 Hematuri a, unspecif ied;Boris rded Elsewher e: No Locat ion: Parag osorio [facility] S ource: EHR Word Processing Operator comfort: N Practi ce ID: 0001 Howard lable Time: 02:45:00 PM Bridget Ryder tom, [facility] 21:26:47 Urinary tract infectio us disease [id number] Completed 201807/25/2020 Urinary tract infectio n, site not specifie d;Record ed Elsewher e: No Locat ion: Parag osorio [facility] S ource: EHR Word Processing Operator comfort: N Practi ce ID: 0001 Howard lable Time: 02:45:00 PM Bridget Ryder tom, [facility] 21:28:10 Gestatio n period, 8 weeks [id number] Completed 201807/25/2020 8 weeks gestatio n of pregnanc y;Practi ce ID: 0001 Bridget santos, [facility] 21:27:12 Normal pregnanc y in multigra lisa [id number] 40974 Completed 201907/25/2020 Encounte r for supervis ion of other normal pregnanc y, 2nd trimeste r;Record ed Elsewher e: No [facility] S ource: EHR Word Processing Operator comfort: N Practi ce ID: 0001 Howard lable Time: 04:00:00 PM Bridget santos [facility] 21:27:31 Antenata l screenin g Completed 201907/25/2020 Encounte r for antenata l screenin g for nuchal transluc ency;Rec orded Elsewher e: No Locat ion: Parag osorio [facility] S ource: EHR Word Processing Operator comfort: N Practi ce ID: 0001 Howard lable Time: 03:00:00 PM Bridget santos [facility] 21:26:33 Antenata l screenin g for malforma tion Completed 201907/25/2020 Encounte r for antenata l screenin g for malforma tions;Pr actice ID: 0001 [facility], [facility] 1 21:26:35 Pregnanc y [id number] Completed 201906/05/2020 [facility], [facility] 0 17:28:12 Syncope [id number] Completed 201911/25/2019 Sarahy Castro null, [facility] 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 2 14:16:18 Mixed anxiety and depressi ve disorder 403015724 Active 2022 Bonita Farris MD [address], [place], [address], [facility] 3 13:11:31 Pain in pelvis 27112858 Active 2022 Bonita Farris MD [address], [place], [address], [facility] 3 13:11:35 Problem Notes None recorded. Procedures Surgical History Date Name Laterality Status Provider Name and Address Organization Details Recorded Time 2 Date of Last Pap Smear completed Alanna Fitzgerald [facility] 11/25/2022 18:18:38 0 Tubal Ligation completed Bridget Ryder [facility] 02/20/2020 10:23:07 8 Colposcopy completed Bridget Ryder [facility] 12/18/2020 10:30:00 8 Colposcopy completed Bridget Ryder [facility] 06/10/2021 16:21:56 0 hernia repair completed Bridget Ryder [facility] 01/16/2021 09:51:20 Imaging Results None recorded. Procedure Notes None recorded. Medical Equipment None Reported. Allergies Allergen ID Allergen Name Allergen Category Reaction Reaction Severity Criticality Documentation Date Start Date Code Code System Note Provider Name and Address Organization Details Recorded Time 2957 Reglan medicatio n Not available Not available Not available 06/04/2020 9230 RxNorm Bridget santos, [facility] 0 10:24:10 580 acetamino phen medicatio n Not available Not available Not available 11/03/2019 161 RxNorm Edwige santos [facility] 0 12:35:19 581 hydrocodo ne Not available Not available Not available Not available 11/03/2019 5489 RxNorm Edwige santos, [facility] 0 12:35:27 Medications Name Sig Start Date Stop Date Status Note LastModified by Organization Details LastModified Time fluoxetin e 40 mg capsule take 1 capsule by oral route every day in the morning 05/18 completed Prescrib ed Elsewher e: Yes Loca tion: [facility] M odify By: cherie quach DateTime : 03/02/20 05:15:00 PM Not Available Not Available Not Available cyclobenz aprine 10 mg tablet TAKE 1 TABLET BY MOUTH AT BEDTIME NEEDED FOR MUSCLE SPASM 05/22 completed Not Available Not Available Not Available amoxicill in 500 mg capsule TAKE ONE CAPSULE BY MOUTH TWICE DAILY FOR 10 DAYS 07/18 completed Not Available Not Available Not Available metformin 500 mg tablet TAKE 1 TABLET BY MOUTH EVERY DAY 11/06 completed Not Available Not Available Not Available nystatin 100,000 unit/mL oral suspensio n 11/02 completed Not Available Not Available Not Available clindamyc in HCl 300 mg capsule TAKE 1 CAPSULE BY MOUTH EVERY 12 HOURS WITH MEALS FOR 7 DAYS 05/22 completed Not Available Not Available Not Available cetirizin e 10 mg tablet 11/02 completed Not Available Not Available Not Available glyburide 5 mg tablet TAKE 1 TABLET BY MOUTH AT BEDTIME 06/01 completed Not Available Not Available Not Available ibuprofen 800 mg tablet 11/02 completed Not Available Not Available Not Available Lidocaine Viscous 2 % mucosal solution 10/24 completed Not Available Not Available Not Available fluconazo le 150 mg tablet take 1 tablet by oral route once 11/02 completed Not Available Not Available Not Available hydrocodo ne 5 mg-acetam inophen 325 mg tablet 06/01 completed Not Available Not Available Not Available promethaz ine 25 mg rectal supposito ry Insert 1 supposit ory every 6 hours by rectal route. 06/01 completed Not Available Not Available Not Available prochlorp erazine maleate 5 mg tablet 11/02 completed Not Available Not Available Not Available sucralfat e 1 gram tablet TAKE 1 TABLET BY MOUTH EVERY 6 HOURS 06/01 completed Not Available Not Available Not Available phenazopy ridine 200 mg tablet TAKE 1 TABLET BY MOUTH 3 TIMES A DAY NEEDED FOR BLADDER SPASMS FOR UP TO 2 DAYS. 10/24 completed Not Available Not Available Not Available metronida zole 0.75 % (37.5 mg/5 gram) vaginal gel INSERT 1 APPLICAT ORFUL VAGINALL Y EVERY DAY AT BEDTIME FOR 5 DAYS 06/02 completed Not Available Not Available Not Available ondansetr on HCl 4 mg tablet TAKE 1 TABLET BY MOUTH EVERY 8 HOURS NEEDED FOR NAUSEA FIRST LINE active Not Available Not Available No t Available metronida zole 500 mg tablet TAKE 1 TABLET EVERY 12 HOURS BY ORAL ROUTE WITH MEALS FOR 7 DAYS, FOR BV. 06/02 completed Not Available Not Available Not Available prochlorp erazine maleate 10 mg tablet take 1 tablet by oral route 3 times every day as needed for nausea 11/02 completed Not Available Not Available Not Available acyclovir 400 mg tablet 11/02 completed Not Available Not Available Not Available ciproflox acin 500 mg tablet TAKE 1 TABLET BY MOUTH TWICE A DAY FOR 5 DAYS 09/29 completed Not Available Not Available Not Available sulfameth oxazole 800 mg-trimet hoprim 160 mg tablet TAKE 1 TABLET BY MOUTH TWICE A DAY FOR 7 DAYS 10/24 completed Not Available Not Available Not Available tramadol 50 mg tablet Take 1 tablet every 6 hours by oral route. 06/01 completed Not Available Not Available Not Available amitripty line 50 mg tablet take 1 tablet by oral route every day at bedtime 02/16 completed Prescrib ed Elsewher e: Yes Loca tion: [facility] odify By: [email or web address] trick En counter DateTime : 11/25/19 15 10:30:00 AM Not Available Not Available Not Available ondansetr on 8 mg disintegr ating tablet PLEASE SEE ATTACHED FOR DETAILED DIRECTIO NS 10/24 completed Not Available Not Available Not Available hydrocort isone 2.5 % topical cream with perineal applicato r APPLY 1 APPLICAT ION RECTALLY TWICE DAILY FOR HEMORRHO IDS 07/18 completed Not Available Not Available Not Available alprazola m 0.5 mg tablet TAKE ONE TABLET BY MOUTH 1 HOUR BEFORE APPOINTM ENT. BRING SECOND TAB TO APPOINTM ENT 04/28 completed Not Available Not Available Not Available Microgest in FE 07/11 (28) 1 mg-20 mcg (21)/75 mg (7) tablet take 1 tablet by oral route every day 08/30 completed Prescrib ed Elsewher e: No Locat ion: [facility] odify By: [email or web address] trick En counter DateTime : 03/15/20 15 08:30:00 AM Not Available Not Available Not Available amoxicill in 875 mg tablet TAKE 1 TABLET BY MOUTH TWICE A DAY UNTIL GONE.. DMD NOT COVERED* *.. active Not Available Not Available No t Available famotidin e 20 mg tablet take 1 tablet by oral route 2 times every day 11/02 completed Not Available Not Available Not Available promethaz ine 12.5 mg rectal supposito ry insert 1 supposit ory by rectal route every 4 hours as needed for nausea 11/02 completed Not Available Not Available Not Available Zoloft 50 mg tablet take 1 tablet by oral route every day 10/27 completed Prescrib ed Elsewher e: No Locat ion: [facility] odify By: sonia velasquez DateTime : 09/19/19 17 01:59:00 PM Not Available Not Available Not Available meclizine 25 mg tablet 06/02 completed Not Available Not Available Not Available Singulair 4 mg chewable tablet 02/16 completed Prescrib ed Elsewher e: Yes Loca tion: [facility] odify By: [email or web address] trick En counter DateTime : 11/25/19 15 10:30:00 AM Not Available Not Available Not Available cephalexi n 500 mg capsule TAKE 1 CAPSULE BY MOUTH TWICE A DAY FOR 10 DAYS 07/18 completed Not Available Not Available Not Available oseltamiv ir 75 mg capsule Take one tablet by oral route twice daily 11/02 completed Not Available Not Available Not Available promethaz ine 25 mg tablet TAKE 1 TABLET BY MOUTH EVERY 6 HOURS NEEDED FOR NAUSEA AND VOMITING 03/15 completed Not Available Not Available Not Available Humulin N NPH U-100 Insulin (isophane susp) 100 unit/mL subcutane ous 06/01 completed Not Available Not Available Not Available fluoxetin e 10 mg capsule 11/02 completed Not Available Not Available Not Available omeprazol e 20 mg capsule,d elayed release TAKE 1 CAPSULE BY MOUTH EVERY DAY 04/28 completed Not Available Not Available Not Available Tylenol 325 mg tablet take 1 tablet by oral route every 4 hours as needed 02/02 completed Prescrib ed Elsewher e: Yes Loca tion: [facility] odify By: [email or web address] trick En counter DateTime : 11/06/19 13 02:30:00 PM Not Available Not Available Not Available monteluka st 10 mg tablet 11/02 completed Not Available Not Available Not Available hydroxyzi ne HCl 25 mg tablet TAKE 1 TABLET BY MOUTH EVERY 6 HOURS NEEDED FOR ANXIETY 04/28 completed Not Available Not Available Not Available codeine 10 mg-guaife nesin 100 mg/5 mL oral liquid 11/02 completed Not Available Not Available Not Available lorazepam 1 mg tablet active Not Available Not Available Not Available ibuprofen 600 mg tablet 03/15 completed Not Available Not Available Not Available levofloxa jameel 500 mg tablet TAKE 1 TABLET BY MOUTH EVERY DAY FOR 7 DAYS 06/01 completed Not Available Not Available Not Available albuterol sulfate HFA 90 mcg/actua tion aerosol inhaler 11/02 completed Not Available Not Available Not Available ondansetr on 4 mg disintegr ating tablet DISSOLVE 1 TABLET ON TONGUE EVERY 8 HOURS NEEDED FOR NAUSEA AND VOMITING active Not Available Not Available No t Available fluticaso ne propionat e 50 mcg/actua tion nasal spray,bal pension 11/02 completed Not Available Not Available Not Available dicyclomi ne 10 mg capsule TAKE 1 CAPSULE BY MOUTH EVERY 6 HOURS NEEDED FOR ABDOMINA L PAIN 04/07 completed Not Available Not Available Not Available loratadin e 10 mg tablet take 1 tablet by oral route every day 02/02 completed Prescrib ed Elsewher e: Yes Loca tion: [facility] odify By: [email or web address] trick En counter DateTime : 11/06/19 13 02:30:00 PM Not Available Not Available Not Available metoclopr amide 10 mg tablet take 1 tablet by oral route 4 times every day 30 minutes before meals and at bedtime 11/02 completed Not Available Not Available Not Available hydroxyzi ne pamoate 25 mg capsule 11/06 completed Not Available Not Available Not Available Depo-Prov era 150 mg/mL intramusc ular syringe inject 1 millilit er (150MG) by intramus cular route every 3 months 02/02 completed Prescrib ed Elsewher e: No Locat ion: [facility] odify By: [email or web address] trick En counter DateTime : 05/05/20 13 01:27:15 PM Not Available Not Available Not Available azithromy jameel 500 mg tablet take 2 tablet by oral route once 11/02 completed Not Available Not Available Not Available escitalop chalo 10 mg tablet TAKE 1 TABLET BY MOUTH EVERY DAY active Not Available Not Available No t Available escitalop chalo 20 mg tablet 05/22 completed Not Available Not Available Not Available nitrofura ntoin monohydra te/macroc rystals 100 mg capsule take 1 capsule by oral route every 12 hours with food x 7 days 11/25 completed Not Available Not Available Not Available duloxetin e 30 mg capsule,d elayed release TAKE 1 CAPSULE BY MOUTH EVERY DAY 05/22 completed Not Available Not Available Not Available Clindesse 2 % vaginal cream,ext ended release Insert 1 applicat orful by vaginal route as directed for 1 day. 06/01 completed Not Available Not Available Not Available Benadryl 06/01 completed Not Available Not Available Not Available Humulin N NPH U-100 Insulin 5 units NPH HS 06/01 completed Not Available Not Available Not Available promethaz ine 11/23 completed Not Available Not Available Not Available Vitamin D3 05/22 completed Not Available Not Available Not Available OneTouch Delica Lancets 33 gauge 06/01 completed Not Available Not Available Not Available Triveen-D uo DHA 29 mg-1 mg-400 mg oral pack take 1 by Oral route once for 30 days 07/16 completed Prescrib ed Elsewher e: No [facility] odify By: miguel ángel odonnell DateTime : 06/17/20 16 08:54:54 AM Not Available Not Available Not Available Nexplanon 68 mg subdermal implant 05/05 completed Prescrib ed Elsewher e: Yes Loca tion: [facility] odify By: [email or web address] quach DateTime : 02/27/20 17 01:45:00 PM Not Available Not Available Not Available OneTouch Ultra Blue Test Strip USE TO TEST BLOOD SUGAR FOUR TIMES DAILY, FASTING IN THE MORNING & 1 HR AFTER BREAKFAS T,LUNCH& DINNER 06/01 completed Not Available Not Available Not Available TechLITE Insulin Syringe (half unit) 0.3 mL 30 gauge x 1/2 06/01 completed Not Available Not Available Not Available OneTouch Ultra2 Meter 06/01 completed Not Available Not Available Not Available Vitals Date Recorded Body height Body mass index (BMI) Body weight Systolic And Diastolic Provider Name and Address Organization Details Last Updated DateTime 11/25/2022 177.8 cm 21.8 kg/m2 51876.04 g 108/73 mm[Hg] Alanna Fitzgerald MA - [facility] 11/25/2022 18:18:11 Date Recorded Body height Body mass index (BMI) Body weight Systolic And Diastolic Provider Name and Address Organization Details Last Updated DateTime 12/19/2022 177.8 cm 21.4 kg/m2 04425.26 g 107/71 mm[Hg] Alannaaugustus Aguilarer [facility] 12/19/2022 12:36:50 Date Recorded Body height Body mass index (BMI) Body weight Systolic And Diastolic Provider Name and Address Organization Details Last Updated DateTime 05/22/2023 177.8 cm 20.4 kg/m2 91202.12 g 115/82 mm[Hg] Christiana Anderson [facility] 05/22/2023 10:44:28 Date Recorded Body height Body mass index (BMI) Body weight Systolic And Diastolic Provider Name and Address Organization Details Last Updated DateTime 06/02/2023 177.8 cm 20.9 kg/m2 77726.49 g 116/74 mm[Hg] Alanna Amilcar [facility] 06/02/2023 09:42:34 Social History Question Answer Notes LastModified by Organizat ion Details LastModified Time Tobacco Smoking Status Never Smoker [facility] 11/03/2019 13:59:48 Are You Blind Or Do You Have Difficulty Seeing? No [email or web address] Information n ot available 01/16/2021 What Is Your Level Of Caffeine Consumption? Occasional [email or web address] Information not available 01/16/2021 In The 14 Days Before Symptom Onset, Have You Had Close Contact With A Laboratory-confirm ed COVID-19 While That Case Was Ill? No [email or web address] Information n ot available 01/16/2021 In The 14 Days Before Symptom Onset, Have You Had Close Contact With A Person Who Is Under Investigation For COVID-19 While That Person Was Ill? No [email or web address] Information not available 01/16/2021 Have You Been To An Area Known To Be High Risk For COVID-19? No Information not available 01/16/2021 Are You Deaf Or Do You Have Serious Difficulty Hearing? No [email or web address] Information not available 01/16/2021 What Type Of Diet Are You Following? REGULAR [email or web address] Information n ot available 01/16/2021 What Was The Date Of Your Most Recent Tobacco Screening? 10/24/2021 [email or web address] Information not available 10/24/2021 Do You Use Your Seat Belt Or Car Seat Routinely? Yes [email or web address] Information not available 01/16/2021 Do You Have Smoke And Carbon Monoxide Detectors In Your Home? Yes Information not available 01/16/2021 How Much Tobacco Do You Smoke? No Information not available 02/20/2020 Do You Use Sunscreen Routinely? Yes [email or web address] Information not available 01/16/2021 Do You Have Difficulty Walking Or Climbing Stairs? No [email or web address] Information not available 10/24/2021 Sex: Unknown Functional Status Question Answer Note LastModified by Organizat ion Details LastModified Time What is your level of alcohol consumption? Occasional [email or web address] Information not available 02/20/2020 Do you or have you ever used smokeless tobacco? Never used smokeless tobacco [email or web address] Information not available 02/20/2020 Are you able to walk independently without assistance or assistive devices? YESWOREST [email or web address] Information not available 01/16/2021 Do you or have you ever used e-cigarettes or vape? Never used electronic cigarettes Information not available 02/20/2020 What is your exercise level? Occasional [email or web address] Information not available 02/20/2020 Mental Status Question Answer Note LastModified by Organization D etails LastModified Time Do you feel stressed (tense, restless, nervous, or anxious, or unable to sleep at night)? [id number] [email or web address] Information not available 01/16/2021 Family History Relationship Description Onset Age of this Age Resolved Age Notes LastModified by Organization Details LastModified Time Brother Carcinoma in situ of lung [email or web address] Not available 14:01:07 Paternal Grandmother Carcinoma in situ of breast [email or web address] Not available 2019 14:01:40 Paternal Grandmother Disorder of thyroid gland [email or web address] Not available 2019 14:02:32 Paternal Grandfather Carcinoma in situ of lung [email or web address] Not available 14:02:49 Paternal Grandfather Asthma [email or web address] Not available 2019 14:03:01 Paternal Grandfather Diabetes mellitus [email or web address] Not available 2019 14:03:29 Paternal Grandfather Carcinoma in situ of colon [email or web address] Not available 2019 14:03:45 Maternal Uncle Carcinoma in situ of colon [email or web address] Not available 2019 14:03:52 Maternal Aunt Diabetes mellitus [email or web address] Not available 2019 14:04:03 Mother Carcinoma in situ of skin [email or web address] Not available 14:04:45 Father Hypertensive disorder [email or web address] Not available 02/19 10:14:31 Notes:Brother: Cancer, lung Father: Hypertension Maternal aunt: Diabetes mellitus Maternal uncle: Cancer, colon Mother: Cancer, skin Paternal grandfather: Asthma, Cancer, colon, Diabetes mellitus Paternal grandmother: Thyroid disease, Cancer, lung, Cancer, breast Medical History Condition Response Allergies (Food, seasonal, environmental ) Y Other N Breast Cancer N Drug/Latex Allergies/Reactions Y Blood Transfusion N Lung Disease N Dermatologic Disorders N Defects or Inherited Disease N Breast Problem N Gestational Diabetes Y Hematologic disorders N Anesthesia Complications N History of STI Y Deep Vein Thrombosis N Polycystic ovary syndrome N Anxiety Disorder Y Autoimmune disease N Arthritis N Polyps N Infertility N History of abnormal pap Y Acid Reflux (GERD) N Cancer N Varicosities N Stroke N Neurologic/Epilepsy N Endometriosis N High Cholesterol N Fibromyalgia N Headaches N Kidney Disease N Heart Problems N Kidney or Bladder Problems N Thyroid Problems N GI Problems Y Eating Disorder N Anemia N Art (IVF or FET) N Psychiatric Illness Y Ovarian Cancer N Diabetes Y Pulmonary (TB, Asthma) N Hepatitis/Liver Disease N No Past Medical History N Eczema N Urinary Tract Infection N Abuse/Domestic Violence N Asthma Y Trauma/Violence N Depression/ depression Y Heart Disease N Pre-Eclampsia N Hypertension N Osteoporosis N Thrombophilias N Gynecological History Statement/Question Response Abnormal Pap Y Flow Light Date of Last Mammogram Date of LMP 05/12/2023 STIs/STDs Yes HPV Vaccine Y Colposcopy 09/07/2017 Duration of Flow (days) 4 Current Control Method Tubal Ligat ion Most Recent Bone Density Sexually Active? Y Menses Monthly Y Date of Last Pap Smear 04/28/2022 Sexual Problems? N LMP Approximate 08/11/2017 Obstetrics History GPAL:G 2 P 2 0 0 2 Type Value Full Term 2 Living 2 Total 2 Past Encounters Encounter ID Performer Location Encounter Start Date Encounter Closed Date Diagnosis/Indication Diagnosis SNOMED-CT Code Diagnosis ICD10 Code Diagnosis IMO Codes Diagnosis Note [id number] Titus Theodore MD [facility] [address],[place] [address] 11/03/2019 11:53:40 11/03/2019 13:00:56 Routine care 571394444 Z34.83 Nausea and vomiting 1693 1999 R11.2 [id number] Shruthi Torres [facility] [address],[place] [address] 11/10/2019 14:21:54 11/15/2019 00:08:35 [id number] [place] [id number],[place] [address] 11/16/2019 12:14:43 11/17/2019 11:55:46 Gestational diabetes mellitus 30533817 O24.419 GDM diet teaching. Discussed carb counting, meal planning, bs logging, and handout given. Discussed risks to of uncontroll ed GDM to mom and baby. RTC in 1 week to evaluate bs. testing to be scheduled. Routine an tenatal care 522115467 Z34.93 [id number] Shruthi Torres [facility] [address],[place] [address] 11/24/2019 11:45:53 12/14/2019 10:04:38 Gestational diabetes mellitus 69275296 O24.419 [id number] Titus Theodore MD [facility] [address],[place] [address] 11/28/2019 15:01:08 11/28/2019 18:09:05 Gestational diabetes mellitus class A2 16700067 O24.414 [id number] Titus Theodore MD [facility] [address],[place] [address] 11/28/2019 15:02:03 11/28/2019 18:07:11 Gestational diabetes mellitus complicating 1054702275 9106 O24.414 Z3A.32 [id number] MD Mare Ornelas [address],[place] [address] 11/28/2019 15:02:25 11/30/2019 22:00:23 [id number] Julia Patterson MD [facility] [address],[place] [address] 11/29/2019 16:05:37 12/02/2019 14:01:42 Normal 27955701 Z34.93 [id number] MD Mare Or[facility] [address],[place] [address] 12/01/2019 16:02:00 12/01/2019 16:57:29 Gestational diabetes mellitus class A2 50467420 O24.414 [id number] MD Mare Or[facility] [address],[place] [address] 12/01/2019 16:36:51 12/01/2019 17:18:18 condition affecting obstetrical care of mother 926144805 O36.8330 [id number] Julia Patterson MD [facility] [address],[place] [address] 12/05/2019 09:18:19 12/05/2019 09:46:37 Normal 32065950 Z34.93 Vaginitis 94058754 N76.0 [id number] MD Mare Ornelas [address],[place] [address] 12/05/2019 09:42:14 12/05/2019 11:52:14 Gestational diabetes mellitus 28012729 O24.419 [id number] MD Mare Ornelas [address],[place] [address] 12/05/2019 10:23:17 12/05/2019 12:10:07 condition affecting obstetrical care of mother 859699755 O36.8330 Z3A.33 [id number] MD Mare Or[facility] [address],[place] [address] 12/08/2019 16:06:31 12/10/2019 16:42:32 Gestational diabetes mellitus class A2 28680725 O24.414 [id number] MD Mare Or[facility] [address],[place] [address] 12/12/2019 16:05:25 12/12/2019 17:53:18 Gestational diabetes mellitus class A2 26241769 O24.414 [id number] Shruthi Torres [facility] [address],[place] [address] 12/12/2019 16:05:38 12/12/2019 17:46:35 [id number] MD Mare Or[facility] [address],[place] [address] 12/12/2019 16:40:00 12/12/2019 17:46:25 Gestational diabetes mellitus 99804868 O24.419 Z3A.34 [id number] MD Mare [facility] [address],[place] [address] 12/15/2019 12:26:55 12/15/2019 13:25:07 Gestational diabetes mellitus class A2 67277884 O24.414 [id number] MD Mare Ornel[facility] [address],[place] [address] 12/29/2019 10:28:04 12/29/2019 11:28:00 Gestational diabetes mellitus class A1 53549112 O24.410 Z3A.36 [id number] Shruthi Torres [facility] [address],[place] [address] 12/29/2019 10:28:25 12/29/2019 14:48:36 Routine care 834641341 Z34.93 [id number] MD Mare Or[facility] [address],[place] [address] 12/29/2019 10:28:58 10/29/2020 13:46:01 [id number] MD Mare Ornelas [address],[place] [address] 01/02/2020 11:06:23 01/02/2020 11:44:43 Routine care 941683122 Z34.83 [id number] MD Mare Ornelas [address],[place] [address] 01/02/2020 11:48:16 01/02/2020 13:17:00 condition affecting obstetrical care of mother 034958401 O36.8130 [id number] MD Mare Ornelas [address],[place] [address] 01/02/2020 12:24:05 01/02/2020 13:55:31 Gestational diabetes mellitus 58378479 O24.410 Z3A.37 [id number] MD Mare Ornelas [address],[place] [address] 01/05/2020 10:42:56 01/05/2020 12:22:54 Gestational diabetes mellitus class A2 73385442 O24.414 [id number] MD Mare Ornelas [address],[place] [address] 01/05/2020 10:43:19 01/05/2020 12:09:02 Gestational diabetes mellitus 63071420 O24.414 O36.8330 Z3A.37 [id number] Titus Theodore MD [facility] [address],[place] [address] 01/05/2020 10:44:19 01/05/2020 13:56:57 Gestational diabetes mellitus class A2 52776857 O24.414 [id number] MD Mare Ornelas [address],[place] [address] 01/12/2020 10:28:45 01/12/2020 11:37:24 Gestational diabetes mellitus class A2 65447044 O24.414 [id number] MD Mare [facility] [address],[place] [address] 01/12/2020 10:29:19 01/12/2020 12:04:12 Gestational diabetes mellitus complicating 1457678020 9106 O24.414 Z3A.38 [id number] MD Mare [facility] [address],[place] [address] 01/12/2020 10:29:48 01/12/2020 14:06:16 Routine care 867219441 Z34.83 [id number] [facility] [address],[place] [address] 02/17/2020 16:10:00 02/19/2020 12:57:01 care 087052261 Z39.2 [id number] Titus Theodore MD [facility] [address],[place] [address] 03/02/2020 09:31:25 03/04/2020 22:15:21 [id number] Gissel Garza CNM [facility] [address],[place] [address] 06/01/2020 09:33:49 06/01/2020 10:34:27 Dysuria 85677849 R30.9 [id number] Titus Theodore MD [facility] [address],[place] [address] 06/29/2020 12:33:04 06/29/2020 14:27:11 Pain in pelvis 53200810 R10.2 [id number] [facility] [address],[place] [address] 12/18/2020 10:13:52 12/18/2020 10:57:05 Pain in pelvis 75234507 R10.2 Irregular periods 445265 07 N92.6 [id number] Titus Theodore MD [facility] [address],[place] [address] 12/31/2020 16:57:43 12/31/2020 17:25:19 Pain in pelvis 57166983 R10.2 [id number] [facility] [address],[place] [address] 01/16/2021 09:41:51 01/16/2021 10:21:08 Urinary tract infectious disease 97859960 N39.0 macrobid x 5 days Cyst of ovary 19166691 N 83.209 rpt us, nausea meds, ibuprofen f.u us scheduled Abnormal prolactin 60394 7009 R94.7 R79.89 rpt today [id number] Titus Theodore MD [facility] [address],[place] [address] 02/22/2021 10:00:21 02/22/2021 12:02:19 Pain in pelvis 14733848 R10.2 [id number] [facility] [address],[place] [address] 10/24/2021 14:00:49 10/25/2021 16:09:53 Abnormal uterine bleeding 0672113417 9100 N93.9 Follow up labs. Nausea 128154548 R11.0 Desires GI referral. Urinary symptoms 0098051 08 R39.9 Increase water and decrease caffeine. Will send culture. Need to repeat dip if normal culture. [id number] [facility] [address],[place] [address] 04/07/2022 11:46:06 04/08/2022 17:09:23 Pain in pelvis 81215986 R10.2 Schedule u/s with follow up. Also will schedule wwe with pap jane. [id number] Bonita Farris MD [facility] [address],[place] [address] 04/28/2022 16:34:41 04/29/2022 15:34:39 Irregular periods 67260434 N92.6 Polycystic ovary syndrome 197062484 E28.2 Abnormal body odor 37441 6001 R68.89 Gynecologi c examination 07727340 Z01.419 [id number] Bonita Farris MD [facility] [address],[place] [address] 05/01/2022 16:39:34 05/01/2022 17:22:15 Irregular periods 69634978 N92.6 E28.2 [id number] MD Mare Cerda [address],[place] [address] 05/05/2022 14:03:35 05/07/2022 14:51:55 Polycystic ovary syndrome 576861953 E28.2 [id number] MD Mare Cerda [address],[place] [address] 07/18/2022 12:51:49 07/18/2022 14:19:17 Malaise and fatigue 504054232 R53.83 Pain in pelvis 13537056 R10.2 Polycystic ovary syndrome 047506684 E28.2 Mixed anxi 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 Counseled on: Provera q3mos regimen Counseled on medication R/B's, Most common side effects, & use. All questions were answered to patient satisfacti on. Possible trial of extended version of Metformin at night with last meal to see if this helps her avoid the GI side effects that caused to stop this therapy which was working well to produce monthly cycles. She will reach out with her decision.W ill need f/u 3mos for either choice. [id number] Meghan Mccollum [facility] [address],[place] [address] 11/06/2022 13:58:50 11/06/2022 16:00:44 Urinary symptoms 826660873 R39.9 Suspect UTIUrine cx sentSTD screen sent (broke with partner--s uspect unfaithful )Rx sent to treat Will reach out with results Time spent in visit is a total of 15 mins with at least 50% of visit consisting of counseling and review of plan of care. Urinary tr act infectious disease 36877258 N39.0 [id number] Meghan Mccollum [facility] [address],[place] [address] 11/25/2022 18:04:56 11/26/2022 10:14:53 Vaginitis 62354667 N76.0 Today we agreed to await return of vaginitis panel before Rx'ing any further medication .Her recent STD screen was neg.Hx of BVAgreeabl e to plan of care. Time spent in visit is a total of 15 mins with at least 50% of visit consisting of counseling and review of plan of care. Urinary symptoms 0845547 08 R39.9 Suspect UTIUrine cx sentSTD screen sent (broke with partner--s uspect unfaithful )Rx sent to treat Will reach out with results Time spent in visit is a total of 15 mins with at least 50% of visit consisting of counseling and review of plan of care. [id number] Meghan Mccollum [facility] [address],[place] [address] 12/19/2022 12:26:24 12/19/2022 15:39:23 Pain in pelvis 22948450 R10.2 Questionab le left adnexal pain on exam today.Will update TVUSSTD swab sentUrine sent Patient is to contact office or go to nearest ED/Urgent care if fever >/= 100.1, pain, excessive bleeding, unusual drainage or swelling in area of concern; or experienci ng worsening sx's or new onset of concerning sx's. Understand ing verbalized . All questions answered to patient satisfacti on. Time spent in visit is a total of 22 mins with at least 50% of visit consisting of counseling and review of plan of care. [id number] Titus Theodore MD [facility] [address],[place] [address] 12/26/2022 12:34:56 12/26/2022 14:14:07 Pain in pelvis 18463598 R10.2 [id number] Meghan Mccollum [facility] [address],[place] [address] 05/22/2023 10:40:15 05/23/2023 08:57:21 Vaginitis 86560450 N76.0 Today suspect possible BV or trich.Sinc e they are treated with the same regimen we agreed to start this Rx now.We will send swabs and update her on results once returned. Counseled on medication R/B's, Most common side effects, & use. All questions were answered to patient satisfacti on. Time spent in visit is a total of 18 mins with at least 50% of visit consisting of counseling and review of plan of care. [id number] Meghan Mccollum , [facility] [address],[place] [address] 06/02/2023 09:28:30 06/02/2023 10:05:11 Gynecologic examination 37403865 Z01.419 Take Calcium with Vitamin D 1200mg daily if not receiving in daily diet. It is strongly advised to have an annual flu shot and up can obtain at most pharmacies . If you have not had a TDap shot in the last 10 years you should obtain one as well. Discussed with patient & provided with informatio n regarding Gardisil vaccine to prevent the 4 strains for HPV that cause cervical cancer if under age 26. Encourage safe sexual practices, to use condoms and limit partners if not already in a monogamous relationsh ip. Do monthly self breast exams. Have mammogram yearly or every other year depending on family history. BRCA testing is now available for patients with strong genetic history of female cancer. If interested contact the office. Engage in daily exercise of low impact aerobic exercise 45-60 minutes 4-5 times weekly. Avoid tobacco and illicit drugs as well as using moderation with alcohol intake less than 1-2 8 oz beverages daily. This lifestyle behavior pattern will lead to less health conditions and longer life span. If BMI greater than 25 weight watchers or dietary consult advised. Patient received above instructio ns, and questions have been answered. If you have any questions please call or respond to this email. Patient was made aware of the patient portal and may obtain a paper copy of today's plan if desired. Pap sent STD Screen UTD 05/2023 Genetic Screen discussed Colon Screen na Dexa Screen na Routine Labs done Health Concerns Section Related Observation LastModified by Organization Detai ls LastModified Time None Recorded Concern Status LastModified by Organization Details LastModified Time None Recorded Advance Directives Directive None Recorded Payers Insurance Date Sequence Insurance Name Policy Number Policy Mantilla Covered Member ID Mantilla Member ID Guarantor Name 07/25/2023 1 [facility] (MEDICAID HMO) [id number] Bridget Hendrix [id number] Bridget Hendrix 05/08/2022 PAYMENT PLAN Bridget Hendrix 08/20/2022 PAYMENT PLAN Bridget Hendrix 07/31/2022 PAYMENT PLAN Bridget Hendrix 07/25/2022 PAYMENT PLAN Bridget Hendrix Notes Date Note Type Note Provider Name and Address Organization Details Recorded Time 11/26/19 23 text/htm l ROS as noted in the HPI Here today for possible Vaginitis vs UTI?Sx's include vag d/c, an irritated feeling; Recent STD screen is neg.Hx of BV Neg pain of abd/pelvis/flankNeg urinary sx'sNeg GI sx'sNeg N/V/F/C/DNeg Vag odor or itching. RIO Alston- [address], [place], [address], [facility] 11/25/2022 18:26:19 12/20/19 23 text/htm l Vaginal/Vulvar ProblemReported by PatientHere today for pelvic pain.Mainly left lower pelvisRandomDoesn't last more than 1hrCramping+vag d/cNeg AUBNeg pain of abd/flankNeg urinary sx'sNeg GI sx'sNeg N/V/F/C/DNeg Vag odor, itching, irritation.ROS as noted in the HPI RIO Alston- [address], [place], [address], [facility] 12/19/2022 15:35:30 05/22/20 23 text/htm l Vaginal/Vulvar ProblemReported by PatientHPIFor associated symptoms, patient reportsvaginal itching,vaginal irritation, andvulvar itching/irritationbut reportsno vulvar swelling/erythema,no vulvar pain,no vulvar lesions,no pelvic pain,no dyspareunia,no dysuria,no fever, andno abdominal pain. For location, patient reportsvagina. For onset/timing, patient reportsabrupt. For duration, patient reportspresent for 1-7 days. For quality, patient reportsitchingandirritation(+o yunior & + d/c). For severity, patient reportsmild. For context, patient reportssexually active (recently broke up with boyfriend of 4yrs but is concerned that he had been unfaithful. would like std screening). For alleviating factors, patient reportsnone. For aggravating factors, patient reportsnone.ROS as noted in the HPI Neg pain of abd/pelvis/flankNeg urinary sx'sNeg GI sx'sNeg N/V/F/C/D Meghan Mccollum [facility] [address], [place], [address], [facility] 05/22/2023 16:30:18 06/02/20 23 text/htm l Annual GYNReported by PatientHistoryFor history, patient reportsno gynecologic complaints.Genitourinary symptomsFor menstrual cycle, patient reportsnormal menses. For urinary symptoms, patient reportsno hematuriaandno incontinence. For vulva, patient reportsno genital lesion. For vagina, patient reportsnormal vaginal discharge.Breast symptomsFor breast, patient reportsno breast pain,no breast lump, andno nipple discharge.ContraceptionFor current contraception, patient reportssatisfied with current contraceptionandtubal ligation.Endocrine symptomsFor sexual complaints, patient reportsno sexual complaints,no pain during intercourse, andnormal libido. For menopausal symptoms, patient reportsno menopausal symptomsandnormal vaginal lubrication.Psychological symptomsFor psychological symptoms, patient reportsno depression,no anxiety, andno pmdd.Preventative measuresFor preventive measures, patient reportsencourage self breast examination,encourage regular exercise,encourage no tobacco use,encourage regular mammograms starting age 40, andfollowed with yearly pap smears. Meghan Mccollum [facility] [address], [place], [address], [facility] 06/02/2023 10:04:46 OBGyn Episode Ob Episode Information Episode Created Date Number of Fetuses Patient Bloodtype Patient rh Status Prepregnancy Weight lbs Domestic Partner Domestic Partner Phone Father Name Environmental Remediation Consultant Status 11/03/19 20 1 A Positive 166 CLOSED Fetus Data First Name Last Name Admitted to NICU Weight (g) Sex Living Outcome Pediatric Complications Fetus ID Race Codes Race Delivery Type 2608.15 4 F true Full Term 1444 Vaginal Delivery Problems Problem Notes Problem Name Start Date End Date Resolution Snomed Code Not e Nausea and vomiting 57701114 Severe Asthma 549331200 Albuterol 2x/wk Gestational diabetes mellitus 92272873 5 mg gllyburide qhs Enzo Calculation Initial Enzo Date Initial Exam Date Initial Exam Provider Initial Ultrasound Date Last Menstrual Period Date Ultra Sound Weeks Gestation 01/23/2020 11/03/2019 06/20/2019 9 Eighteen To Twenty Week Enzo Update Ultra Sound Date Fundal Height At Umbil Quickening Date Ultra Sound Latest Weeks Gestation Final Enzo Confirmed By Final Enzo Confirmed Date Final Enzo Date Ultra Sound Latest Days Gestation 06/02/20 19 6 [email or web address] 11/03/2019 01/23/20 20 1 Pre-araseli Flowsheet Flowsheet Date 11/03/2019 Bush Score Blood Edema Fundus Height Fundus Units Glucose Ketones Leukocytes Nitrite Labor Signs Protein Cervic Dilation Cervic Effacement Cervic Station 27 trace Type Weight in lbs Pre/Post Dialysis Refused BP Diastolic BP Location Tested BP Systolic BP Type Fetus Heart Rate Present A 145 Fetus Movement A Yes Comments Reviewed sugars with SB. Pt to come back for diet teaching in 1 wk & review BS again and will see if pt rules in for GDM. YOUSUF schmidt Flowsheet Date 11/10/2019 Bush Score Blood Edema Fundus Height Fundus Units Glucose Ketones Leukocytes Nitrite Labor Signs Protein Cervic Dilation Cervic Effacement Cervic Station trace Type Weight in lbs Pre/Post Dialysis Refused Weight 181.598484064495 BP Diastolic BP Location Tested BP Systolic BP Type 69 96 sitting Fetus Heart Rate Present Fetus Movement Comments Flowsheet Date 07/11/2019 Bush Score Blood Edema Fundus Height Fundus Units Glucose Ketones Leukocytes Nitrite Labor Signs Protein Cervic Dilation Cervic Effacement Cervic Station 1+ trace Type Weight in lbs Pre/Post Dialysis Refused Weight 138.004241695285 BP Diastolic BP Location Tested BP Systolic BP Type 75 120 sitting Fetus Heart Rate Present Fetus Movement A No Comments This patient is a 23-year-ol d 2 para 1001 at 12 weeks gestation who presents for initial visit. She has no risk factors are poor obstetric history. She will begin routine care Flowsheet Date 08/10/2019 Bush Score Blood Edema Fundus Height Fundus Units Glucose Ketones Leukocytes Nitrite Labor Signs Protein Cervic Dilation Cervic Effacement Cervic Station 1+ 16 trace Type Weight in lbs Pre/Post Dialysis Refused Weight 138.143456225385 BP Diastolic BP Location Tested BP Systolic BP Type 78 123 sitting Fetus Heart Rate Present A 154 Fetus Movement Comments This patient is a 24-year-ol d female who presents for follow-up care. She is complaining of syncope. She is instructed to drink water constantly. She is also instructed to take healthy snacks every 2 hours. She is instructed to take her nausea medication. She has been nauseated with vomiting. She will follow up in 4 weeks Flowsheet Date 09/07/2019 Bush Score Blood Edema Fundus Height Fundus Units Glucose Ketones Leukocytes Nitrite Labor Signs Protein Cervic Dilation Cervic Effacement Cervic Station trace Type Weight in lbs Pre/Post Dialysis Refused Weight 176.950734509453 BP Diastolic BP Location Tested BP Systolic BP Type 89 145 Fetus Heart Rate Present A 156 Fetus Movement A Yes Comments Pt c/odischarge and nausea / jgumber, cmaPt never took the clindamycin d/t nausea in . She is still having the discharge. She is not sexually active at this time. Will resend rx. Re-evaluate at next visit. Repeat bp 124/80. Pt denies h/a, v/d, or e/p. PIH precautions given. Flowsheet Date 11/16/2019 Bush Score Blood Edema Fundus Height Fundus Units Glucose Ketones Leukocytes Nitrite Labor Signs Protein Cervic Dilation Cervic Effacement Cervic Station 30 trace Type Weight in lbs Pre/Post Dialysis Refused Weight 181.140768049947 BP Diastolic BP Location Tested BP Systolic BP Type 73 113 sitting Fetus Heart Rate Present A 144 Fetus Movement A Yes Comments GDM diet teaching and meal p evelina today. Pt desires tubal ligation. Discussed risk vs benefit. Consent signed today. Flowsheet Date 11/24/2019 Bush Score Blood Edema Fundus Height Fundus Units Glucose Ketones Leukocytes Nitrite Labor Signs Protein Cervic Dilation Cervic Effacement Cervic Station trace Type Weight in lbs Pre/Post Dialysis Refused Weight 179.129373855557 BP Diastolic BP Location Tested BP Systolic BP Type 77 L arm 111 sitting Fetus Heart Rate Present Fetus Movement Comments Pt here to f/u on blood suga rs. FBS consistently elevated. Pt states she is only fasting for about 6 hours before checking her bs. States that she is unable to fast any longer d/t history of severe gi upset/hyperemesis. She is also struggling with the limited food options because the carbs are the only thing that settles her stomach and keeps her from vomiting all the time. I reviewed bs and discussed dietary concerns/limitiations with Dr Theodore. He would like her to start taking prilosec daily to see if it helps and start insulin 5u @ hs d/t elevated fbs. I have discussed in detail with patient and she is willing to try. She will switch to prilosec once daily today. She needs insulin teaching and there is no one available today. Pt is not able to return tomorrow. Will have to defer insulin until Thursday when she can come in for teaching. 30 minutes spent with patient discussing above. Flowsheet Date 11/28/2019 Bush Score Blood Edema Fundus Height Fundus Units Glucose Ketones Leukocytes Nitrite Labor Signs Protein Cervic Dilation Cervic Effacement Cervic Station Type Weight in lbs Pre/Post Dialysis Refused BP Diastolic BP Location Tested BP Systolic BP Type Fetus Heart Rate Present Fetus Movement Comments Flowsheet Date 11/28/2019 Bush Score Blood Edema Fundus Height Fundus Units Glucose Ketones Leukocytes Nitrite Labor Signs Protein Cervic Dilation Cervic Effacement Cervic Station Type Weight in lbs Pre/Post Dialysis Refused BP Diastolic BP Location Tested BP Systolic BP Type Fetus Heart Rate Present Fetus Movement Comments Flowsheet Date 11/28/2019 Bush Score Blood Edema Fundus Height Fundus Units Glucose Ketones Leukocytes Nitrite Labor Signs Protein Cervic Dilation Cervic Effacement Cervic Station Type Weight in lbs Pre/Post Dialysis Refused BP Diastolic BP Location Tested BP Systolic BP Type Fetus Heart Rate Present Fetus Movement Comments Flowsheet Date 11/29/2019 Bush Score Blood Edema Fundus Height Fundus Units Glucose Ketones Leukocytes Nitrite Labor Signs Protein Cervic Dilation Cervic Effacement Cervic Station none 30 cm 0cm 0% -3 Type Weight in lbs Pre/Post Dialysis Refused Weight 183.397641306694 BP Diastolic BP Location Tested BP Systolic BP Type 75 R arm 107 sitting Fetus Heart Rate Present A 145 Fetus Movement A Yes Comments Pt. will leave urine sample after her appt. bc, rma She c/o vaginal discharge. Affirm done. No fluid coming from cervix with cough or Valsalva. Declines STD teting. She did not bring blood sugar log and has not started insulin yet. I encouraged her to start insulin jane and bring log to each visit! Flowsheet Date 12/01/2019 Bush Score Blood Edema Fundus Height Fundus Units Glucose Ketones Leukocytes Nitrite Labor Signs Protein Cervic Dilation Cervic Effacement Cervic Station Type Weight in lbs Pre/Post Dialysis Refused BP Diastolic BP Location Tested BP Systolic BP Type Fetus Heart Rate Present Fetus Movement Comments Flowsheet Date 12/01/2019 Bush Score Blood Edema Fundus Height Fundus Units Glucose Ketones Leukocytes Nitrite Labor Signs Protein Cervic Dilation Cervic Effacement Cervic Station Type Weight in lbs Pre/Post Dialysis Refused BP Diastolic BP Location Tested BP Systolic BP Type Fetus Heart Rate Present Fetus Movement Comments Flowsheet Date 12/05/2019 Bush Score Blood Edema Fundus Height Fundus Units Glucose Ketones Leukocytes Nitrite Labor Signs Protein Cervic Dilation Cervic Effacement Cervic Station none 33 cm trace Type Weight in lbs Pre/Post Dialysis Refused Weight 185.506590741610 BP Diastolic BP Location Tested BP Systolic BP Type 79 R arm 120 sitting Fetus Heart Rate Present A 138 Fetus Movement A Yes Comments Glucose neagtive. bc ,rma Fa sting BS all high except one so increase insulin fomr 5 to 8 u in pm. +BV on swab last week, rx sent Flowsheet Date 12/05/2019 Bush Score Blood Edema Fundus Height Fundus Units Glucose Ketones Leukocytes Nitrite Labor Signs Protein Cervic Dilation Cervic Effacement Cervic Station Type Weight in lbs Pre/Post Dialysis Refused BP Diastolic BP Location Tested BP Systolic BP Type Fetus Heart Rate Present Fetus Movement Comments Flowsheet Date 12/05/2019 Bush Score Blood Edema Fundus Height Fundus Units Glucose Ketones Leukocytes Nitrite Labor Signs Protein Cervic Dilation Cervic Effacement Cervic Station Type Weight in lbs Pre/Post Dialysis Refused BP Diastolic BP Location Tested BP Systolic BP Type Fetus Heart Rate Present Fetus Movement Comments Flowsheet Date 12/08/2019 Bush Score Blood Edema Fundus Height Fundus Units Glucose Ketones Leukocytes Nitrite Labor Signs Protein Cervic Dilation Cervic Effacement Cervic Station Type Weight in lbs Pre/Post Dialysis Refused BP Diastolic BP Location Tested BP Systolic BP Type Fetus Heart Rate Present Fetus Movement Comments Flowsheet Date 12/12/2019 Bush Score Blood Edema Fundus Height Fundus Units Glucose Ketones Leukocytes Nitrite Labor Signs Protein Cervic Dilation Cervic Effacement Cervic Station Type Weight in lbs Pre/Post Dialysis Refused BP Diastolic BP Location Tested BP Systolic BP Type Fetus Heart Rate Present Fetus Movement Comments Flowsheet Date 12/12/2019 Bush Score Blood Edema Fundus Height Fundus Units Glucose Ketones Leukocytes Nitrite Labor Signs Protein Cervic Dilation Cervic Effacement Cervic Station trace Type Weight in lbs Pre/Post Dialysis Refused Weight 186.456091835046 BP Diastolic BP Location Tested BP Systolic BP Type 77 113 sitting Fetus Heart Rate Present Fetus Movement Comments Flowsheet Date 12/12/2019 Bush Score Blood Edema Fundus Height Fundus Units Glucose Ketones Leukocytes Nitrite Labor Signs Protein Cervic Dilation Cervic Effacement Cervic Station Type Weight in lbs Pre/Post Dialysis Refused BP Diastolic BP Location Tested BP Systolic BP Type Fetus Heart Rate Present Fetus Movement Comments Flowsheet Date 12/15/2019 Bush Score Blood Edema Fundus Height Fundus Units Glucose Ketones Leukocytes Nitrite Labor Signs Protein Cervic Dilation Cervic Effacement Cervic Station Type Weight in lbs Pre/Post Dialysis Refused BP Diastolic BP Location Tested BP Systolic BP Type Fetus Heart Rate Present Fetus Movement Comments Flowsheet Date 12/29/2019 Bush Score Blood Edema Fundus Height Fundus Units Glucose Ketones Leukocytes Nitrite Labor Signs Protein Cervic Dilation Cervic Effacement Cervic Station Type Weight in lbs Pre/Post Dialysis Refused BP Diastolic BP Location Tested BP Systolic BP Type Fetus Heart Rate Present Fetus Movement Comments Flowsheet Date 12/29/2019 Bush Score Blood Edema Fundus Height Fundus Units Glucose Ketones Leukocytes Nitrite Labor Signs Protein Cervic Dilation Cervic Effacement Cervic Station 36 trace Type Weight in lbs Pre/Post Dialysis Refused Weight 184.988207173687 BP Diastolic BP Location Tested BP Systolic BP Type 82 L arm 131 sitting Fetus Heart Rate Present A 140 Fetus Movement A Yes Comments Pt's blood sugars all over t he place. FBS 80-174 and 1 hour 78-177. Pt started glyburide 1 week ago. States she is doing very good with eating the right foods but if she feels like her sugar is low she will eat something higher in carbs/sugar. Her blood sugar readings are very unusual. I am not sure if there is an issue with diet, medications, or glucometer. Pt sent to [place] for observation to monitor blood glucose and diet. I have discussed with Dr Theodore and he agrees with plan of care. Flowsheet Date 12/29/2019 Bush Score Blood Edema Fundus Height Fundus Units Glucose Ketones Leukocytes Nitrite Labor Signs Protein Cervic Dilation Cervic Effacement Cervic Station Type Weight in lbs Pre/Post Dialysis Refused BP Diastolic BP Location Tested BP Systolic BP Type Fetus Heart Rate Present Fetus Movement Comments Flowsheet Date 01/02/2020 Bush Score Blood Edema Fundus Height Fundus Units Glucose Ketones Leukocytes Nitrite Labor Signs Protein Cervic Dilation Cervic Effacement Cervic Station 36 trace Type Weight in lbs Pre/Post Dialysis Refused Weight 184.207013181544 BP Diastolic BP Location Tested BP Systolic BP Type 86 125 Fetus Heart Rate Present A 158 Fetus Movement A Yes Comments blood sugar values are mixed . Some good values while fasting. To continue with this treatment - to bring more data on 3 days Flowsheet Date 01/02/2020 Bush Score Blood Edema Fundus Height Fundus Units Glucose Ketones Leukocytes Nitrite Labor Signs Protein Cervic Dilation Cervic Effacement Cervic Station Type Weight in lbs Pre/Post Dialysis Refused BP Diastolic BP Location Tested BP Systolic BP Type Fetus Heart Rate Present Fetus Movement Comments Flowsheet Date 01/02/2020 Bush Score Blood Edema Fundus Height Fundus Units Glucose Ketones Leukocytes Nitrite Labor Signs Protein Cervic Dilation Cervic Effacement Cervic Station Type Weight in lbs Pre/Post Dialysis Refused BP Diastolic BP Location Tested BP Systolic BP Type Fetus Heart Rate Present Fetus Movement Comments Flowsheet Date 01/05/2020 Bush Score Blood Edema Fundus Height Fundus Units Glucose Ketones Leukocytes Nitrite Labor Signs Protein Cervic Dilation Cervic Effacement Cervic Station Type Weight in lbs Pre/Post Dialysis Refused BP Diastolic BP Location Tested BP Systolic BP Type Fetus Heart Rate Present Fetus Movement Comments Flowsheet Date 01/05/2020 Bush Score Blood Edema Fundus Height Fundus Units Glucose Ketones Leukocytes Nitrite Labor Signs Protein Cervic Dilation Cervic Effacement Cervic Station 37 trace Type Weight in lbs Pre/Post Dialysis Refused Weight 184.258934114763 BP Diastolic BP Location Tested BP Systolic BP Type 80 119 Fetus Heart Rate Present A 145 Fetus Movement A Yes Comments Change glyburide to twice da aileen. Needs better control during the day. To call in blood sugars in 4 days Flowsheet Date 01/05/2020 Bush Score Blood Edema Fundus Height Fundus Units Glucose Ketones Leukocytes Nitrite Labor Signs Protein Cervic Dilation Cervic Effacement Cervic Station Type Weight in lbs Pre/Post Dialysis Refused BP Diastolic BP Location Tested BP Systolic BP Type Fetus Heart Rate Present Fetus Movement Comments Flowsheet Date 01/12/2020 Bush Score Blood Edema Fundus Height Fundus Units Glucose Ketones Leukocytes Nitrite Labor Signs Protein Cervic Dilation Cervic Effacement Cervic Station Type Weight in lbs Pre/Post Dialysis Refused BP Diastolic BP Location Tested BP Systolic BP Type Fetus Heart Rate Present Fetus Movement Comments Flowsheet Date 01/12/2020 Bush Score Blood Edema Fundus Height Fundus Units Glucose Ketones Leukocytes Nitrite Labor Signs Protein Cervic Dilation Cervic Effacement Cervic Station Type Weight in lbs Pre/Post Dialysis Refused BP Diastolic BP Location Tested BP Systolic BP Type Fetus Heart Rate Present Fetus Movement Comments Flowsheet Date 01/12/2020 Bush Score Blood Edema Fundus Height Fundus Units Glucose Ketones Leukocytes Nitrite Labor Signs Protein Cervic Dilation Cervic Effacement Cervic Station 37 trace Type Weight in lbs Pre/Post Dialysis Refused Weight 189.263077636037 BP Diastolic BP Location Tested BP Systolic BP Type 85 132 Fetus Heart Rate Present A 145 Fetus Movement A Yes Comments Flowsheet Date 02/17/2020 Bush Score Blood Edema Fundus Height Fundus Units Glucose Ketones Leukocytes Nitrite Labor Signs Protein Cervic Dilation Cervic Effacement Cervic Station Type Weight in lbs Pre/Post Dialysis Refused Weight 168.808465017388 BP Diastolic BP Location Tested BP Systolic BP Type 86 122 Fetus Heart Rate Present Fetus Movement Comments Flowsheet Date 03/02/2020 Bush Score Blood Edema Fundus Height Fundus Units Glucose Ketones Leukocytes Nitrite Labor Signs Protein Cervic Dilation Cervic Effacement Cervic Station Type Weight in lbs Pre/Post Dialysis Refused BP Diastolic BP Location Tested BP Systolic BP Type Fetus Heart Rate Present Fetus Movement Comments Flowsheet Date 06/01/2020 Bush Score Blood Edema Fundus Height Fundus Units Glucose Ketones Leukocytes Nitrite Labor Signs Protein Cervic Dilation Cervic Effacement Cervic Station Type Weight in lbs Pre/Post Dialysis Refused Weight 179.805445997539 BP Diastolic BP Location Tested BP Systolic BP Type 74 119 Fetus Heart Rate Present Fetus Movement Comments Menstrual History Last Menstrual Date Menses Monthly On Bcp Conception Prior Menses Frequency Hcg Plus Date Menarche Onset Age Genetic Screening And Infection History Question Response Note Mental Retardation/Autism false Patient's Age Will Be 35 Yea rs Or Older At Estimated Date of Delivery false Thalassemia (Chinese, Prydeinig, Mediterranean, Or Background): MCV < 80 false Neural Tube Defect (Meningomyelocele, Spina Bifi da, Or Anencephaly) false Congenital Heart Defect false Down Syndrome false Beny-Sachs (eg, Alevism, Cajun, Portuguese-Grimes) f alse Cristiano Disease false Sickle Cell Disease Or Trait () false Hemophilia Or Other Blood Disorders false Muscular Dystrophy false Cystic Fibrosis false Ameena's Chorea false Intellectual Disability/Autism false If Yes, Was Person Tested For Fragile X? false Other Inherited Genetic Or Chromosomal Disorder false Maternal Metabolic Disorder (eg, Type 1 Diabetes , PKU) false Patient Or Baby's Father Had A Child With Defects Not Listed Above false Recurrent Loss, Or A Stillbirth false Medications (including Suppl ements, Vitamins, Herbs, OTC Drugs), Illicit/Recreational Drugs, Alcohol false If Yes, Agent(s) And Strength/Dosage false Any Other Genetic History false Live With Someone With TB Or Exposed To TB false Patient Or Partner Has History Of Genital Herpes false Rash Or Viral Illness Since Last Menstrual Perio d false History Of STD, Gonorrhea, Chlamydia, HPV, Syphi lis true GC/Chlam Other Infection History false History of HIV false History of Hepatitis false Prior GBS-infected child false Hemoglobinopathy Or Carrier false Other Structural Defect false Recent Travel History Outside of Country false Delivery Information Delivery Date Delivery Type Labor Anesthesia Weeks Gestation Incision Type Labor Labor Length Hrs Delivered By Post Complications Tubal Sterilization Discharge Date Comments 0 38.5 GDM Discharge Information Feeding Method Contraceptive Method Maternal HG B and HCT Levels Ob Episode Information Episode Created Date Number of Fetuses Patient Bloodtype Patient rh Status Prepregnancy Weight lbs Domestic Partner Domestic Partner Phone Father Name Environmental Remediation Consultant Status 11/03/19 20 1 CLOSED Fetus Data First Name Last Name Admitted to NICU Weight (g) Sex Living Outcome Pediatric Complications Fetus ID Race Codes Race Delivery Type [id number] F Full Term [id number] Vaginal Delivery Enzo Calculation Initial Enzo Date Initial Exam Date Initial Exam Provider Initial Ultrasound Date Last Menstrual Period Date Ultra Sound Weeks Gestation 0 Eighteen To Twenty Week Enzo Update Ultra Sound Date Fundal Height At Umbil Quickening Date Ultra Sound Latest Weeks Gestation Final Enzo Confirmed By Final Enzo Confirmed Date Final Enzo Date Ultra Sound Latest Days Gestation 0 0 Menstrual History Last Menstrual Date Menses Monthly On Bcp Conception Prior Menses Frequency Hcg Plus Date Menarche Onset Age Delivery Information Delivery Date Delivery Type Labor Anesthesia Weeks Gestation Incision Type Labor Labor Length Hrs Delivered By Post Complications Tubal Sterilization Discharge Date Comments 7 39.2 Discharge Information Feeding Method Contraceptive Method Maternal HG B and HCT Levels Ob Episode Information Episode Created Date Number of Fetuses Patient Bloodtype Patient rh Status Prepregnancy Weight lbs Domestic Partner Domestic Partner Phone Father Name Environmental Remediation Consultant Status 01/23/20 20 1 DELETED Enzo Calculation Initial Enzo Date Initial Exam Date Initial Exam Provider Initial Ultrasound Date Last Menstrual Period Date Ultra Sound Weeks Gestation 0 Eighteen To Twenty Week Enzo Update Ultra Sound Date Fundal Height At Umbil Quickening Date Ultra Sound Latest Weeks Gestation Final Enzo Confirmed By Final Enzo Confirmed Date Final Enzo Date Ultra Sound Latest Days Gestation 0 0 Menstrual History Last Menstrual Date Menses Monthly On Bcp Conception Prior Menses Frequency Hcg Plus Date Menarche Onset Age Delivery Information Delivery Date Delivery Type Labor Anesthesia Weeks Gestation Incision Type Labor Labor Length Hrs Delivered By Post Complications Tubal Sterilization Discharge Date Comments 0 38 GDM Discharge Information Feeding Method Contraceptive Method Maternal HG B and HCT Levels
[2025-03-26 10:20] VITALS: BP 114/82; PULSE 81; RESP 16; TEMP 37.2; O2SAT 100
[2025-03-26 10:40] LABS: EDSTREPNEGPOS1 Negative (Negative)
--- NOTE | 2025-03-26 10:51 | ED.URI ---
HPI - URI/Sore Throat General Chief Complaint: Upper Respiratory Infection Stated Complaint: Headache/Sore Throat Time Seen by Provider: 03/26/25 10:35 Source: patient and RN notes reviewed Mode of arrival: ambulatory Limitations: no limitations History of Present Illness HPI Narrative: 29-year-old female presents Express Care complaining of sore throat, headache, fevers for approximately 2-3 days. Patient denies any other upper respiratory symptoms, body aches, chills, nausea, vomiting, chest pain, difficulty breathing abdominal pain, or any other symptoms. Patient taking Motrin with some relief. Patient has a history of anxiety and PTSD. Related Data Home Medications ?Medication ?Instructions ?Recorded ?Confirmed ?Last Taken ?Type hydroxyzine HCl 25 mg tablet 25 mg PO QID PRN 12/20/24 12/20/24 Unknown History lorazepam 1 mg tablet 2 mg PO DAILY PRN Anxiety 12/20/24 12/20/24 Unknown History ondansetron 8 mg disintegrating 8 mg PO Q8H 12/20/24 12/20/24 Unknown History tablet escitalopram oxalate 20 mg tablet mg 03/26/25 Unknown History Allergies Allergy/AdvReac Type Severity Reaction Status Date / Time prochlorperazine (From Allergy Unknown Unknown Verified 03/26/25 10:27 Compazine) hydrocodone AdvReac Mild NAUSEA Verified 03/26/25 10:27 metoclopramide (From Reglan) AdvReac Mild Muscle Verified 03/26/25 10:27 Spasms diazepam (From Valium) AdvReac Unknown Unknown Verified 03/26/25 10:27 Review of Systems Review of Systems: CONSTITUTIONAL: Denies chills, or sweats. Positive for fevers. EYES: Denies visual changes, redness, or discharge. ENT: Denies rhinorrhea, congestion, delete or otalgia. Positive for sore throat. CARDIOVASCULAR: Denies chest pain, palpitations, or edema. RESPIRATORY: Denies cough or dyspnea. GASTROINTESTINAL: Denies abdominal pain, nausea, vomiting, or diarrhea. GENITOURINARY: Denies dysuria or hematuria. SKIN: Denies rash or itching. MUSCULOSKELETAL: Denies back pain, joint pain, or myalgia. NEUROLOGIC: Positive for headaches. Negative for numbness, or weakness. PSYCHIATRIC: Denies anxiety or depression. All other systems reviewed are negative, except as documented in HPI. PMFSH Past Medical History Medical History Drug induced constipation Hiatal hernia Mass in neck Irritable bowel syndrome with diarrhea Dyspepsia Abnormal weight loss Internal hemorrhoid Family history of colorectal cancer Obesity Marijuana abuse Atypical chest pain Nausea Bilateral lower abdominal cramping Chronic diarrhea Depression Asthma Migraine Surgical History Surgical History H/O inguinal hernia repair [place] teeth extracted Family History Family History Father Hypertension Mother Skin cancer Sibling Skin cancer Lung cancer Grandparent Asthma Social History Social History Smoking status: Never smoker Substance use: current Substance use type: marijuana Last use: 01/06/22 Living arrangements: with family Gender identity (if verbalized by the patient): Female Spiritual care concerns: No Comments At the time of my signature, I reviewed and agree with the nursing past medical, surgical, social, and family history. There is no relevant family history pertinent to the patient complaint. Exam Narrative: GENERAL: This is a well-nourished, well-developed adult, in no apparent distress. They are non ill-appearing, nontoxic appearing. HEAD: normocephalic, atraumatic. EYES: Sclera clear/white. Conjunctiva normal. Vision is grossly intact. Extraocular movements intact EARS: External ears normal, auditory canals clear and without drainage, TMs normal without perforation. Hearing grossly intact. NOSE: External nose normal with no obvious nasal discharge, nasal turbinates without redness, no rhinorrhea. THROAT: Mucous membranes moist, posterior pharynx erythematous, red and patchy. Uvula midline. NECK: Neck supple, mild cervical lymphadenopathy, no masses or thyromegaly. CARDIOVASCULAR: Regular rate and rhythm without murmurs, gallops, or rubs. RESPIRATORY: Clear to auscultation. Breath sounds equal bilaterally. No wheezes, rales, or rhonchi. SKIN: warm, Dry, intact with no suspicious lesions or rash, good texture and turgor. NEURO: awake, alert, and oriented to person, place and time. There were no obvious focal neurologic abnormalities. EXTREMITIES: No joint tenderness, effusion, or edema noted. Course Course Emergency Course: Portions of this record may have been created with voice recognition software Level of Care: Express Care Visit Vital Signs Vital signs: Vital Signs Temperature 98.9 F 03/26/25 10:20 Pulse Rate 81 03/26/25 10:20 Respiratory Rate 16 03/26/25 10:20 Blood Pressure 114/82 03/26/25 10:20 Pulse Oximetry 100 03/26/25 10:20 Oxygen Delivery Room Air 03/26/25 10:20 Temperature 98.9 F 03/26/25 10:20 Pulse Rate 81 03/26/25 10:20 Respiratory Rate 16 03/26/25 10:20 Blood Pressure 114/82 03/26/25 10:20 Pulse Oximetry 100 03/26/25 10:20 Oxygen Delivery Room Air 03/26/25 10:20 Reviewed MDM - URI/Sore Throat MDM Narrative Medical decision making narrative: Rapid strep negative. A throat culture is pending. Centor score 3. there is clinical suspicion of strep pharyngitis. Through shared decision making discussed with patient about awaiting for culture results prior to her treatment or go ahead and start antibiotic therapy, patient elected to go ahead and start antibiotic therapy. Will treat with amoxicillin. Discussed physical exam findings. Advised supportive measures and signs/symptoms to go to the ER. Pt is appropriate for outpt treatment and f/u. Differential Diagnosis Differential diagnosis: Likely upper respiratory infection, sinusitis, viral infection and pharyngitis Lab Data Attestation: I reviewed the patient's lab results. Labs: Lab Results 03/26/25 Range/Units 10:28 POC Grp A Strep Screen Negative (Negative) Critical Care Time Critical Care Time Critical Care Time: No Discharge Plan Discharge Clinical Impression: Pharyngitis Qualifiers: Pharyngitis/tonsillitis etiology: unspecified etiology Qualified Code(s): J02.9 - Acute pharyngitis, unspecified Patient Disposition: Home Condition: Stable Instructions: Antibiotic Form, Pharyngitis (ED) Additional Instructions: Throat culture will be sent off and if it is positive for strep you will be contacted. Please take the amoxicillin as prescribed until gone. ?You will be contagious for 24 hours after starting the medication. ?After 24 hours on antibiotics throw tooth brush away and start using a new one. Wash your sheets and cup/water bottle that is used daily. Do not share drinks. Take Tylenol or Ibuprofen for pain or fever, if able. ?Rest and stay hydrated. ?Follow up with your PCP in 3 days if symptoms are not improving. ?Go to the ER immediately if you develop worsening symptoms such as shortness of breath, difficulty swallowing. ? Patient Language: Wolof Prescriptions: New amoxicillin 500 mg tablet 500 mg PO Q12H 10 Days Qty: 20 0RF No Action escitalopram oxalate 20 mg tablet lorazepam 1 mg tablet 2 mg PO DAILY PRN (Reason: Anxiety) hydroxyzine HCl 25 mg tablet 25 mg PO QID PRN ondansetron 8 mg tablet,disintegrating 8 mg PO Q8H dicyclomine 20 mg tablet 20 mg PO QID Qty: 120 3RF Follow-up/Referrals: PHYSICIAN NOT ON STAFF,NONSTAFF [Primary Care Provider] Time of Disposition: 10:50
== END 2025-03-26 11:00 | disposition home or self-care (01) ==
DX: J02.9 Acute pharyngitis, unspecified (principal); J45.909 Unspecified asthma, uncomplicated; E66.9 Obesity, unspecified; Z68.21 Body mass index [BMI] 21.0-21.9, adult; F32.A Depression, unspecified; F41.9 Anxiety disorder, unspecified
CPT/HCPCS: 87081; 87880; 99213; G0463